=== PATIENT | male | born 1955 | race African-American/Black ===

== ENCOUNTER 2017-07-25 15:00 | Outpatient (RCR) | payer MEDICARE, OTHER, SELFPAY ==
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
== END 2017-07-25 15:30 | disposition home or self-care (01) ==
LOC: PT 15:00
PROVIDERS: Family Provider Family Medicine; PCP Family Medicine; Visit Provider Family Medicine
DX: M54.2 Cervicalgia (principal); M25.569 Pain in unspecified knee
CPT/HCPCS: 97014; 97035; 97110; 97162; 97164; 97530; G0283

== ENCOUNTER 2017-08-24 10:22 | Emergency (ER) | payer MEDICARE, SELFPAY ==
[2017-08-24 10:23] VITALS: BP 156/101; PULSE 88; RESP 18; TEMP 37.4; O2SAT 98; BMI 74.9
--- NOTE | 2017-08-24 11:06 | ED.DCSUM_ITS ---
- ER Visit Summary Date of Service: 08/24/17 Chief Complaint: Back pain History of Present Illness: The patient is a [address] Ahn. Reports that he has a history of chronic back pain and spinal stenosis. He is scheduled to see a spine surgeon Dr. Frank in September. Reports he had an MRI last year. She reports this morning he was bending over and cough. He had the acute worsening of pain left low back. Is a sharp, aching pain is 10 out of 10 severity. Worsened by movement and partially relieved by a back brace. States radiates down the back of his left leg to the level of his knee. He denies any numbness or weakness. No problems with his bowels or his bladder. No groin numbness. No fever, chills, abdominal pain, or other complaints. Physical Examination: Vitals: Stable. Afebrile. General: A&O x 3. NAD. Cardiovascular exam: Regular rate and rhythm, no murmur, rub or gallop. Respiratory exam: Clear to auscultation bilaterally. No wheezes or stridor. Abdominal exam: Soft, nontender, nondistended, normal bowel sounds. No peritoneal signs. Back: Diffuse moderate tenderness to palpation over the lumbar spine and the paraspinous musculature in the lumbar region. No point tenderness. Negative straight leg bilaterally. 5/5 DF, PF, EHL bilaterally. Normal sensation to light touch throughout. Extremity: No clubbing, cyanosis, or edema. Emergency Department Course and Treatment: An [facility] report was obtained which shows he has had 11 prescription for opiates in the past year. He does not have an active prescription. He is given a dose of Dilaudid IM, Flexeril p.o., naproxen p.o. Treatment Plan: Patient will be discharged with [place], naproxen, and Flexeril. Instructed to follow-up Dr. Ahn in 3-5 days if not improving. Return to the emergency department for any worsening symptoms. Disposition: To home in improved and stable condition. Impression: 1. Acute on chronic back pain. This note was generated with [employer] dictation software. It may contain incorrect words, spelling, and punctuation that were not noted in review of the chart prior to signing ED Disposition - Plan for ED Patient: Disposition: Home or Assisted Living Chief Complaint: Back Instructions: ED Neck Back Pain General Prescriptions: Naproxen [Naprosyn] 500 mg PO BID PRN #20 tablet Cyclobenzaprine [Flexeril] 10 mg PO TID PRN #20 tablet PRN Reason: Muscle Spasm Referrals: Deo Ahn MD [Primary Care Provider] - 3-5 Days if not improving
[2017-08-24] MEDS: Naproxen 500 MG Tablet PO (11:25)
[2017-08-24] MEDS: HYDROmorphone 1 MG/ML Syringe IM (11:25)
[2017-08-24 12:25] VITALS: PULSE 92; RESP 14; O2SAT 98
== END 2017-08-24 12:43 | disposition home or self-care (01) ==
PROVIDERS: Emergency Provider Emergency Medicine; Family Provider Family Medicine; PCP Family Medicine
DX: M54.9 Dorsalgia, unspecified (principal); G89.29 Other chronic pain; I10 Essential (primary) hypertension; K74.60 Unspecified cirrhosis of liver; Z72.0 Tobacco use; Z79.899 Other long term (current) drug therapy
CPT/HCPCS: 96372; 99282

== ENCOUNTER → 2017-10-23 12:41 | Outpatient (CLI) | payer MEDICARE, SELFPAY ==
--- NOTE | 2017-10-23 12:44 | RAD_ITS ---
STUDY: X-RAY - LUMBOSACRAL SPINE REASON FOR EXAM: Male, 62 years old. Low back pain TECHNIQUE: 7 view(s) of the lumbosacral spine were obtained. COMPARISON: October 23, 2016 lumbar spine x-ray FINDINGS: Normal lumbar lordosis. There is no apparent change in the alignment with flexion and extension. There is no substantial scoliosis. There is normal alignment of the vertebrae. There is multilevel endplate spondylosis of the lumbar vertebrae. There is multi-level degenerative disc disease with multi-level disc space narrowing. This is most significant at the level of L5-S1 where there is disc space narrowing spondylosis narrowed appearance of the neural foramen and shortening of the pedicle. There is facet arthropathy left greater than right L4-L5 L5-S1. Normal bilateral sacral ala, sacroiliac joints, and visualized sacrum. Normal visualized soft tissue structures. RAD/L/S Spine Comp/w Bending Views IMPRESSION: Degenerative changes of the spine, as detailed above. No visualized loss of alignment with flexion and extension views provided. Electronically Signed: Naye Monsivais MD at 17:26 EDT Tel , Service support ,
== END ==
PROVIDERS: Visit Provider Orthopaedic Surgery
DX: M54.5 Low back pain (principal)
CPT/HCPCS: 72114

== ENCOUNTER → 2017-11-08 12:35 | Outpatient (CLI) | payer MEDICARE, SELFPAY ==
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
== END ==
PROVIDERS: Family Provider Family Medicine; PCP Family Medicine; Visit Provider Orthopaedic Surgery
DX: S83.241A Other tear of medial meniscus, current injury, right knee, initial encounter (principal); X58.XXXA Exposure to other specified factors, initial encounter; Y93.9 Activity, unspecified; Y92.9 Unspecified place or not applicable; Y99.9 Unspecified external cause status
CPT/HCPCS: 73721

== ENCOUNTER 2017-11-08 14:09 | Emergency (ER) | payer MEDICARE, SELFPAY ==
[2017-11-08 14:10] VITALS: BP 148/81; PULSE 100; RESP 17; TEMP 37.2; O2SAT 99; BMI 35.1
--- NOTE | 2017-11-08 14:30 | ED.DCSUM_ITS ---
- ER Visit Summary Date of Service: 11/08/17 Chief Complaint: Left knee pain History of Present Illness: The patient is a 62 M who complains of left knee pain. Started today. He was getting an MRI of his right knee when his left knee started to hurt. Patient has been seen here many times over the past year for knee pain. He states that he usually takes nothing for his pain at home. He also describes tingling in the leg. He has had x-rays of both of his knees with the past 6 months. Physical Examination: Vital signs reviewed. Left knee exam reveals tenderness palpation diffusely. There is no swelling. He has painful range of motion. Test Results: None indicated Emergency Department Course and Treatment: I will give the patient 1 oxycodone here. He will go home with naproxen. I do not feel he requires any imaging as he has had multiple x-rays of the left knee in the past 6 months. There is no new injury. I do not feel that narcotics will be necessary for this as well. Treatment Plan: [] Disposition: Discharge Impression: Left knee pain This note was generated with [employer] dictation software. It may contain incorrect words, spelling, and punctuation that were not noted in review of the chart prior to signing ED Disposition - Plan for ED Patient: Chief Complaint: Lower Extremity Injury Referrals: Deo Ahn MD [Primary Care Provider] -
--- NOTE | 2017-11-08 14:30 | ED.DEP ---
ED Disposition - Plan for ED Patient: Disposition: Home or Assisted Living Chief Complaint: Lower Extremity Injury Instructions: ED Knee Pain [facility] Prescriptions: Naproxen [Naprosyn] 500 mg PO BID PRN #20 tab Referrals: Deo Ahn MD [Primary Care Provider] -
[2017-11-08] MEDS: oxyCODONE 5 MG Tablet PO (14:55)
[2017-11-08 14:58] VITALS: PULSE 98; RESP 16; O2SAT 100
== END 2017-11-08 15:06 | disposition home or self-care (01) ==
LOC: ED 14:48
PROVIDERS: Emergency Provider Emergency Medicine; Family Provider Family Medicine; PCP Family Medicine
DX: M25.562 Pain in left knee (principal); R20.2 Paresthesia of skin; S83.241A Other tear of medial meniscus, current injury, right knee, initial encounter; X58.XXXA Exposure to other specified factors, initial encounter; Y93.9 Activity, unspecified; Y92.9 Unspecified place or not applicable; Y99.9 Unspecified external cause status; I10 Essential (primary) hypertension; K74.60 Unspecified cirrhosis of liver; Z72.0 Tobacco use; Z79.899 Other long term (current) drug therapy
CPT/HCPCS: 73721; 99283

== ENCOUNTER 2017-12-11 07:14 | Day surgery (SDC) | payer MEDICARE, MEDICAID, SELFPAY ==
[2017-12-11] VITALS (9 sets, daily range): BP systolic 113–145; BP diastolic 69–94; PULSE 71–97; RESP 16–18; TEMP 36.3–36.4; O2SAT 94–100; BMI 34.0
--- NOTE | 2017-12-11 07:04 | DCINST_ITS ---
Discharge Activity: Return to Normal Activity, May not drive while taking narcotic pain medications., May Shower, Use Crutches May shower in (days): 2 May resume sexual activity in: No Restrictions Ice area for (Minutes): 20 Weight Bearing Status: Weight bearing as tolerated Keep extremity elevated above heart level: Right Leg Additional Activity Instructions:: May flex and extend knee ad danny. Call your doctor if your incision/area has: Continuous Slow Oozing, Sudden Increased Bleeding, Increased Pain/ Swelling, Increased Redness, Foul Smelling Discharge, Swelling at the incision site Call your doctor if you observe: Fever of 101 or Higher, Coldness, Increased Pain, Numbness or Tingling, Change in Color, Inability to urinate, Inability to have a bowel movement, Using more than one pad per hour, Shortness of breath, Dizziness, Fainting spells, Swelling in the ankles, Chest pain, Prolonged hiccoughing, Increased palpitations (irregular heartbeat), Calf discomfort, Uncontrolled pain Suture Line Care: Avoid Pulling/Pushing, Avoid Pinching/Bending Change Dressing in (Days):: 2 Remove Dressing in (days):: 2 Cleanse incision/area with: Soap & Water Additional Dressing/Incision Instructions:: Move dressing to shower. Do not submerge wound. May allow water to run over wounds. Replace Oswaldo wrap after shower to aid with decreasing swelling. Allergies/Adverse Reactions: Allergies codeine Allergy (Verified 12/10/17 09:03) Other propoxyphene HCl [From Darvon] Allergy (Verified 12/10/17 09:03) Other propoxyphene napsylate [From Darvocet-N 100] Allergy (Verified 12/10/17 09:03) Other Medications to take at Discharge Meloxicam 15 mg PO DAILY 11/29/13 Albuterol IH (ProAir) [Proair Hfa] 2 puff INHALATION Q6H PRN PRN 12/02/13 Metoprolol(XL)Succ [Toprol Xl (Beta Julia)] 50 mg PO DAILY 12/02/13 Pantoprazole Sodium [Protonix] 40 mg PO DAILY 12/02/13 Lisinopril [Zestril] 20 mg PO DAILY 12/15/15 Methimazole [Tapazole] 5 mg PO DAILY 05/18/16 Docusate Sodium [Colace] 100 mg PO BID PRN PRN #10 cap 12/11/17 Hydrocodone Bitart/Apap 5-325 [W[place]ers 5/325] 1 - 2 tablet PO Q6H PRN PRN #60 tablet 12/11/17 Meloxicam [Mobic] 15 mg PO DAILY #30 tab 12/11/17 proMETHazine tablet [Phenergan] 25 mg PO Q4H PRN PRN #10 tab 12/11/17 The following prescriptions were given: proMETHazine tablet [Phenergan] 25 mg PO Q4H PRN PRN #10 tab PRN Reason: Nausea Hydrocodone Bitart/Apap 5-325 [Warners 5/325] 1 - 2 tablet PO Q6H PRN PRN #60 tablet PRN Reason: Pain Docusate Sodium [Colace] 100 mg PO BID PRN PRN #10 cap PRN Reason: Constipation Meloxicam [Mobic] 15 mg PO DAILY #30 tab Primary Care Physician: Deo Ahn MD [Primary Care Provider] - Please Follow Up With: Ramin Rick DO When: [facility] for appointment for 2 weeks. Proposed Discharge Date: 12/11/17
--- NOTE | 2017-12-11 08:52 | OP.PN_ITS ---
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 Surgery/Procedure Performed:: Right knee arthroscopy, medial meniscus debridement, subtotal synovectomy Description of Surgical Findings:: See dictation Estimated Blood Loss: 10 Specimen's removed: None Type of Anesthesia:: General ASA Class: ASA1 Normal Healthy Patient - Admit VTE Documentation VTE Present on Admission: No VTE Mechan Device Prophylaxis: SCD's, Knee High MARYLIN Hose VTE Pharm Prophylaxis ordered?: No Reason prophylaxis not ordered:: Treatment Not Indicated
[2017-12-11] MEDS: Cefazolin 2 GM in 0.9% Normal Saline 100 ML IV (09:04)
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
[2017-12-11] MEDS: Ketorolac 15 MG/ML Vial IV (10:23)
[2017-12-11] MEDS: oxyCODONE 5 MG Tablet 10 MG PO (11:48)
== END 2017-12-11 12:10 | disposition home or self-care (01) ==
LOC: SDC 07:16 → AC 07:17
PROVIDERS: Family Provider Family Medicine; PCP Family Medicine; Visit Provider Orthopaedic Surgery
PROC: (CPT 29870; principal; 2017-12-11 08:30)
DX: S83.241A Other tear of medial meniscus, current injury, right knee, initial encounter (principal); M23.8X1 Other internal derangements of right knee; M94.261 Chondromalacia, right knee; M25.561 Pain in right knee; G89.29 Other chronic pain; F17.200 Nicotine dependence, unspecified, uncomplicated; I10 Essential (primary) hypertension; J44.9 Chronic obstructive pulmonary disease, unspecified; G47.30 Sleep apnea, unspecified; K21.9 Gastro-esophageal reflux disease without esophagitis; E05.90 Thyrotoxicosis, unspecified without thyrotoxic crisis or storm; Z86.19 Personal history of other infectious and parasitic diseases; Z79.51 Long term (current) use of inhaled steroids; Z79.899 Other long term (current) drug therapy; X58.XXXA Exposure to other specified factors, initial encounter; Y93.9 Activity, unspecified; Y92.9 Unspecified place or not applicable; Y99.9 Unspecified external cause status
CPT/HCPCS: 01400; 29881; J7120

== ENCOUNTER → 2018-01-08 12:23 | Outpatient (CLI) | payer MEDICARE, SELFPAY ==
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
== END ==
PROVIDERS: Family Provider Family Medicine; PCP Family Medicine; Visit Provider Orthopaedic Surgery
DX: S83.207A Unspecified tear of unspecified meniscus, current injury, left knee, initial encounter (principal)
CPT/HCPCS: 73721

== ENCOUNTER 2018-01-22 05:26 | Day surgery (SDC) | payer OTHER, MEDICARE, SELFPAY ==
[2018-01-22] VITALS (7 sets, daily range): BP systolic 126–145; BP diastolic 88–98; PULSE 75–88; RESP 16–18; TEMP 36.2–36.9; O2SAT 97–99; BMI 34.8
--- NOTE | 2018-01-22 06:55 | PCM.DC.ORTHO ---
Discharge Activity: Return to Normal Activity, May not drive while taking narcotic pain medications., May Shower, Use Crutches May shower in (days): 2 May resume sexual activity in: No Restrictions Ice area for (Minutes): 20 Weight Bearing Status: Weight bearing as tolerated Keep extremity elevated above heart level: Left Leg Additional Activity Instructions:: May move knee ad danny. Crutches for comfort. Call your doctor if your incision/area has: Continuous Slow Oozing, Sudden Increased Bleeding, Increased Pain/ Swelling, Increased Redness, Foul Smelling Discharge Call your doctor if you observe: Fever of 101 or Higher, Coldness, Increased Pain, Numbness or Tingling, Change in Color, Calf discomfort Suture Line Care: Avoid Pulling/Pushing, Avoid Pinching/Bending Change Dressing in (Days):: 2 Remove Dressing in (days):: 2 Cleanse incision/area with: Soap & Water Additional Dressing/Incision Instructions:: Remove dressing prior to shower on . Wash hands prior to touching wounds. May shower but do not submerge wound. Replace Oswaldo wrap upon completion of initial shower to decrease swelling. Allergies/Adverse Reactions: Allergies codeine Allergy (Verified 12/19/17 10:31) Other propoxyphene HCl [From Darvon] Allergy (Verified 12/19/17 10:31) Other propoxyphene napsylate [From Darvocet-N 100] Allergy (Verified 12/19/17 10:31) Other Medications to take at Discharge Albuterol IH (ProAir) [Proair Hfa] 2 puff INHALATION Q6H PRN PRN 12/02/13 Metoprolol(XL)Succ [Toprol Xl (Beta Julia)] 50 mg PO DAILY 12/02/13 Pantoprazole Sodium [Protonix] 40 mg PO DAILY 12/02/13 Lisinopril [Zestril] 20 mg PO DAILY 12/15/15 Methimazole [Tapazole] 5 mg PO DAILY 12/15/15 Docusate Sodium [Colace] 100 mg PO BID PRN PRN #10 cap 12/11/17 Hydrocodone Bitart/Apap 5-325 [[place] 5/325] 1 - 2 tablet PO Q6H PRN PRN #60 tablet 12/11/17 Meloxicam [Mobic] 15 mg PO DAILY #30 tab 12/11/17 proMETHazine tablet [Phenergan] 25 mg PO Q4H PRN PRN #10 tab 12/11/17 Primary Care Physician: Deo Ahn MD [Primary Care Provider] - Please Follow Up With: Ramin Rick DO When: call [facility] for appt for 2 weeks Proposed Discharge Date: 01/22/18
[2018-01-22] MEDS: Cefazolin 2 GM in 0.9% Normal Saline 100 ML IV (07:09)
[2018-01-22] MEDS: Bupivacaine Mpf 0.5% 30 ML VIAL (08:00)
--- NOTE | 2018-01-22 08:12 | PCM.IMDPSTOP ---
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
[2018-01-22] MEDS: Ketorolac 15 MG/ML Vial IV (08:18)
--- NOTE | 2018-01-22 08:20 | OP.PCM_ITS ---
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 Patient had plain from radiographs that showed a valgus knee with some narrowing and some squaring to the compartment. Patient had an MRI that showed complex tears to his medial and lateral meniscus with significant chondromalacia and subchondral edema at the lateral tibial plateau and squaring of the lateral femoral condyle. Patellofemoral joint was otherwise preserved. Having failed conservative measures of multiple injections and physical therapy brace wear patient elected for operative intervention. Patient was informed that based on MRI that he may be a candidate for either a lateral unicompartmental arthroplasty versus total knee arthroplasty based on the degree of potential arthrosis identified by MRI. Patient was met in the holding area where the left lower extremity was marked and identified by the orthopedic surgeon. Patient was taken to the operating room in satisfactory condition with somewhat to place to identify patient operative procedure and limb. Patient received 2 g of Ancef. He had a well-placed tourniquet to the left left proximal thigh. Patient was then prepped and draped in usual fashion. Left lower extremity was elevated Esmarch used for exsanguination and tourniquet was increased to 250 mmHg for roughly 30 minutes. Anterolateral portal was established we entered into the suprapatellar pouch. We had no return of an effusion. Superior lateral outflow portal was created. Diagnostic scope should the patient have really grade I-II chondromalacia globally around the patella but the trochlea was otherwise preserved. Patient had some degree of hypertrophic fat pad that was not inflamed. He had no loose bodies in the posterior lateral corner. Patient's patella tracked accordingly. Moved in the medial compartment patient had a significant anterior fat pad. Anterior medial portal was established and we performed an anterior release and synovectomy for better visualization. Reevaluation the trochlea again showed limited chondromalacia. Patient's medial compartment was otherwise showed some mild softening and fissure formation but no loose chondral fragments. He did have a parrot-beak tear to the medial meniscus which was gently debrided using mechanical shaver. And some debridement of complex changes to the posterior horn. Patient lost roughly 25% of the meniscus at most. It was otherwise stable upon probing. No obvious horizontal cleavage pattern was identified which was more consistent with his MRI findings. Patient did show rimming early osteophytic formations across the edge of the medial femoral condyle. He showed early not stenosis but was not causing roof impingement at this time. Patient also showed some osteophytic formation across the lateral femoral condyle as well. Lateral compartment showed the patient have grade IV chondromalacia roughly over 75% of the weightbearing surface with some mild loose chondral fragments were debrided mechanically with a shaver. The patient showed a very complex erratic pattern to his meniscus. Posterior horn was otherwise stable upon probing however she moved towards the popliteus the patient's meniscus thinned out significantly consistent with his MRI findings. And then passed popliteal popliteal hiatus anteriorly he had horizontal cleavage pattern and small radial components anteriorly. Using a combination of meniscal biters both front and back directions and a mechanical shaver the meniscus was debrided to a stable rim. I maintained the overall continuity of the as it was not unstable but it clearly was not a healthy-appearing meniscus. The patient's dermal condyle showed significant squaring formation is identified by plain films consistent with grade III chondromalacia. No obvious loose fragments were identified. Upon completion of the meniscectomy and the synovectomy scope was retracted. Portal sites were closed with 3-0 nylon. He was injected with 30 cc of 0.25% Marcaine without epinephrine. He was addressed in usual fashion with Xeroform 4 x 4's Kerlix roll ABD Oswaldo wrap and tourniquet was let down. I was scrubbed and available all time during our procedure. He had no drains or complications. And no implants. Patient will follow the meniscus protocol. Patient remains symptomatic we will refer him out for possible compartment arthroplasty versus total knee. With the patient' s medial compartment osteophytic changes is probably a better candidate for total knee arthroplasty for Long-term success. electronic equipment repairmen: none Type of Anesthesia:: General Specimen's removed: None Estimated Blood Loss (mL): 5 Grafts/Implants Used: None - Complications None - Admit VTE Documentation VTE Present on Admission: No VTE Mechan Device Prophylaxis: SCD's, Knee High MARYLIN Hose VTE Pharm Prophylaxis ordered?: No Reason prophylaxis not ordered:: Treatment Not Indicated
[2018-01-22] MEDS: HYDROcodone Bitartrate/Apap 5/325 Tablet PO (09:15)
== END 2018-01-22 09:49 | disposition home or self-care (01) ==
LOC: SDC 05:27 → AC 05:28
PROVIDERS: Family Provider Family Medicine; PCP Family Medicine; Visit Provider Orthopaedic Surgery
PROC: (CPT 29870; principal; 2018-01-22 06:55)
DX: S83.272A Complex tear of lateral meniscus, current injury, left knee, initial encounter (principal); S83.242A Other tear of medial meniscus, current injury, left knee, initial encounter; X58.XXXA Exposure to other specified factors, initial encounter; Y93.9 Activity, unspecified; Y92.9 Unspecified place or not applicable; Y99.9 Unspecified external cause status; J44.9 Chronic obstructive pulmonary disease, unspecified; I10 Essential (primary) hypertension; E78.00 Pure hypercholesterolemia, unspecified; K21.9 Gastro-esophageal reflux disease without esophagitis; G47.30 Sleep apnea, unspecified; M54.9 Dorsalgia, unspecified; G89.29 Other chronic pain; F17.200 Nicotine dependence, unspecified, uncomplicated; Z79.899 Other long term (current) drug therapy
CPT/HCPCS: 29880; J7120; J2405

== ENCOUNTER 2018-01-29 13:28 | Emergency (ER) | payer MEDICARE, SELFPAY ==
[2018-01-29 13:29] VITALS: BP 138/78; PULSE 89; RESP 16; TEMP 37; O2SAT 98; BMI 34.0
--- NOTE | 2018-01-29 13:46 | VDLE_ITS ---
Reason For Study: pain RIGHT LEFT CFV is compressible, spontaneous, phasic, GSV is normal. competent and demonstrates normal CFV is compressible, spontaneous, phasic, augmentation. competent, and demonstrates normal Procedure augmentation. Exam performed portable in ED. FV is compressible, spontaneous, phasic, The exam was diagnostic. competent and demonstrates normal A preliminary report was called and/or faxed augmentation. to Dr. Griffin. POP V is compressible, spontaneous, phasic, competent and demonstrates normal augmentation. T/P Trunk is compressible. PTV is compressible. LT PerV is compressible. Interpretation Summary There is no evidence of left lower extremity deep vein thrombosis. Left greater saphenous vein appears patent and compressible segmentally. Normal flow patterns right common femoral vein. Ordering Physician: Ramin Griffin Performed By: Ra Jackson RVT
[2018-01-29] MEDS: morphine 8 MG/ML Syringe SC (13:50)
[2018-01-29] MEDS: Ondansetron ODT 4 MG Tablet PO (13:54)
--- NOTE | 2018-01-29 14:35 | RAD_ITS ---
STUDY: X-RAY - LEFT KNEE REASON FOR EXAM: Male, 62 years old. Pain. Recent surgical intervention of the knee joint. TECHNIQUE: AP and lateral view(s) of the knee. COMPARISON: Comparison is made with prior study dated August 22, 2017. FINDINGS: Normal visualized distal femur. Normal visualized proximal tibia and fibula. Normal proximal tibiofibular articulation. Normal medial femorotibial compartment. There is moderate degenerative arthrosis of the lateral femorotibial compartment with moderate joint space narrowing. There is mild degenerative arthrosis of the patellofemoral articulation. Small joint effusion. RAD/Knee 1 or 2 Views IMPRESSION: Degenerative arthrosis. Small joint effusion. Electronically Signed: Joe Cordero MD at 14:55 EDT Tel [phone], Service support ,
--- NOTE | 2018-01-29 15:19 | ED.VISSUMM ---
- ER Visit Summary Date of Service: 01/29/18 Chief Complaint: Left leg pain History of Present Illness: The patient is a 62 M presenting for evaluation secondary left leg pain. Patient reports that he had a arthroscopic knee surgery performed a week ago. He reports that he has had gradually increasing pain in his left knee and left leg. Patient states that he has not been regularly taking his pain medication. Denies any presence of fevers chills or night sweats. He denies any warmth of the joint. Patient denies any chest pain or shortness of breath. Patient called the orthopedics office they recommended that he come in for evaluation and a duplex ultrasound. Review of systems otherwise negative. Physical Examination: Vital signs within normal limits patient is afebrile 98.6. Well-nourished male visibly in pain otherwise not in physiologic distress. Heart regular rate and rhythm lungs clear. Abdomen soft nontender. Lower extremity exam shows diffuse tenderness to palpation of the thigh knee and calf without any localization. Compartments are soft no evidence of palpable cord. Skin is normal-appearing, nonerythematous incisions are cleaned dry and intact. There is a joint effusion of the knee, but there is no evidence of warmth when compared to the contralateral knee. 2+ DP and PT pulses that are bilaterally symmetric. Remainder of the physical is otherwise unremarkable. Test Results: Duplex ultrasound found to be negative for DVT, 2 view of the knee shows an effusion and degenerative joint disease Emergency Department Course and Treatment: Patient presented for evaluation secondary to leg pain. He was treated with morphine in the emergency department. Her radiographs as noted above were found to be negative. At this time I do not see any evidence of vascular compromise, any evidence of infection, and I believe that the patient's pain likely is secondary to postoperative pain. I did discuss this with the covering physician Dr. Mclaughlin who will pass the message along to the patient's surgeon Dr. Rick. Patient's was given an additional dose of subcutaneous Dilaudid in the emergency department for further pain control, and the patient was discharged in improved condition Disposition: Discharge Impression: 1. Postoperative left leg pain This note was generated with [employer] ([place] dictation software. It may contain incorrect words, spelling, and punctuation that were not noted in review of the chart prior to signing ED Disposition - Plan for ED Patient: Disposition: Home or Assisted Living Chief Complaint: Lower Extremity Injury Diagnosis: Postoperative pain Instructions: ED Post Op Pain Referrals: Ramin Rick DO [STAFF PHYSICIAN] - Keep Akila appointment
--- NOTE | 2018-01-29 15:23 | ED.DCSUM_ITS ---
- ER Visit Summary Date of Service: 01/29/18 Chief Complaint: Left leg pain History of Present Illness: The patient is a 62 M presenting for evaluation secondary left leg pain. Patient reports that he had a arthroscopic knee surgery performed a week ago. He reports that he has had gradually increasing pain in his left knee and left leg. Patient states that he has not been regularly taking his pain medication. Denies any presence of fevers chills or night sweats. He denies any warmth of the joint. Patient denies any chest pain or shortness of breath. Patient called the orthopedics office they recommended that he come in for evaluation and a duplex ultrasound. Review of systems otherwise negative. Physical Examination: Vital signs within normal limits patient is afebrile 98.6. Well-nourished male visibly in pain otherwise not in physiologic distress. Heart regular rate and rhythm lungs clear. Abdomen soft nontender. Lower extremity exam shows diffuse tenderness to palpation of the thigh knee and calf without any localization. Compartments are soft no evidence of palpable cord. Skin is normal-appearing, nonerythematous incisions are cleaned dry and intact. There is a joint effusion of the knee, but there is no evidence of warmth when compared to the contralateral knee. 2+ DP and PT pulses that are bilaterally symmetric. Remainder of the physical is otherwise unremarkable. Test Results: Duplex ultrasound found to be negative for DVT, 2 view of the knee shows an effusion and degenerative joint disease Emergency Department Course and Treatment: Patient presented for evaluation secondary to leg pain. He was treated with morphine in the emergency department. Her radiographs as noted above were found to be negative. At this time I do not see any evidence of vascular compromise, any evidence of infection , and I believe that the patient's pain likely is secondary to postoperative pain. I did discuss this with the covering physician Dr. Mclaughlin who will pass the message along to the patient's surgeon Dr. Rick. Patient's was given an additional dose of subcutaneous Dilaudid in the emergency department for further pain control, and the patient was discharged in improved condition Disposition: Discharge Impression: 1. Postoperative left leg pain This note was generated with [employer] dictation software. It may contain incorrect words, spelling, and punctuation that were not noted in review of the chart prior to signing ED Disposition - Plan for ED Patient: Disposition: Home or Assisted Living Chief Complaint: Lower Extremity Injury Diagnosis: Postoperative pain Instructions: ED Post Op Pain Referrals: Ramin Rick DO [STAFF PHYSICIAN] - Keep Akila appointment
[2018-01-29] MEDS: HYDROmorphone 1 MG/ML Syringe SC (15:29)
[2018-01-29 15:59] VITALS: BP 127/81; PULSE 97; RESP 16; O2SAT 98
== END 2018-01-29 16:16 | disposition home or self-care (01) ==
PROVIDERS: Emergency Provider Emergency Medicine; Family Provider Family Medicine; PCP Family Medicine
DX: M79.605 Pain in left leg (principal); G89.18 Other acute postprocedural pain; M17.12 Unilateral primary osteoarthritis, left knee; I10 Essential (primary) hypertension; K21.9 Gastro-esophageal reflux disease without esophagitis; Z79.899 Other long term (current) drug therapy
CPT/HCPCS: 73560; 93971; 96372; 99282

== ENCOUNTER 2018-02-20 12:30 | Outpatient (RCR) | payer MEDICARE, SELFPAY ==
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
--- NOTE | 2018-05-09 11:39 | HP.PTDCNRP_ITS ---
HP - Discharge Summary (1) - Patient Information ZANE YEPEZ was seen in my office for initial evaluation on 02/12/18. The following Plan of Care was established for this patient: Initial Frequency: 2x /Week Initial Duration: 4-6 Weeks - Anticipated Interventions Patient/Client Instruction: Educate patient on: Condition, Plan of Care, Risk Factors, Benefits of Fitness Program For the Purpose of:: To foster healthy habits, To improve decision making, To facilitate caregiver knowledge, To improve self management, To prevent re- injury, To improve ability to perform tasks related to life management, To improve tolerance to ADL's Therapeutic Exercise to Include: Strength training, Power training, Endurance training, Balance training, Coordination, Agility training, Body mechanics, Flexibilty training, Gait and locomotor training, In an aquatic setting, Passive ROM, Active ROM For the Purpose of:: To decrease pain, To increase ROM, To improve nutrient delivery to tissue, To increase oxygenation perfusion, To improve ability of physical actions for home/community/work/leisure, To improve gait and locomotor functions, To improve health of tissue, To decrease soft tissue restriction, To increase flexibility/ROM, To improve endurance, To improve balance Manual Therapy Techniques to Include: Mobilization, Passive ROM For the Purpose of:: To decrease pain, To decrease swelling/inflammation, To increase ROM IF ES: Yes Cryotherapy (ice pack, ice massage): Yes For the Purpose of:: To decrease pain, To decrease swelling/inflammation, To increase ROM This patient was last seen in our office 02/20/18. Pertinent comments regarding their Physical therapy will appear below: Pt. was seen for his L knee pain after menisectomy. Pt. was seen for 3 visits with reports of good improvement. He had full ROM after our last visit. Pt. desired to trial PT on his own at that point in time. Pt. has not been seen ~3 months and will be DC from PT at this point in time. At this point I will be discontinuing this patient from physical therapy. I would be happy to see this patient again in the future if found appropriate by the physician. Thank you! Floyd Curry
== END 2018-02-20 19:00 | disposition home or self-care (01) ==
LOC: PT 12:30
PROVIDERS: Family Provider Family Medicine; PCP Family Medicine; Visit Provider Orthopaedic Surgery
DX: M51.37 Other intervertebral disc degeneration, lumbosacral region (principal); M54.17 Radiculopathy, lumbosacral region; Z98.890 Other specified postprocedural states
CPT/HCPCS: 97014; 97110; 97113; 97162; G0283

== ENCOUNTER 2018-02-28 15:42 | Emergency (ER) | payer MEDICARE, SELFPAY ==
[2018-02-28 15:44] VITALS: BP 132/86; PULSE 91; RESP 18; TEMP 36.6; O2SAT 98; BMI 34.0
--- NOTE | 2018-02-28 16:36 | ED.VISSUMM ---
- ER Visit Summary Date of Service: 02/28/18 Chief Complaint: Rash History of Present Illness: The patient is a 62 M presents to the emergency department with rash on his left back. Patient had the symptoms for the past 2 days. He is concerned that he may have shingles. Patient denies any injury. He denies any chest pain shortness of breath. He denies any fevers or chills. He has never had anything like this before. Physical Examination: Exam is relatively unremarkable. Patient does have vesicular rash along the left back to the left lateral chest. There is no cellulitis. There is no active drainage. Rest of exam unremarkable. Test Results: [] Emergency Department Course and Treatment: The patient's examination is consistent with shingles. He is afebrile. He is well-appearing. I do feel that he can safely be managed as an outpatient. He is not a diabetic. He will be given analgesics, prednisone, and antivirals. The patient will be discharged home, counseled on concerning symptoms and reasons to return. Treatment Plan: [] Disposition: Discharge Impression: 1. Shingles left chest This note was generated with [employer] dictation software. It may contain incorrect words, spelling, and punctuation that were not noted in review of the chart prior to signing ED Disposition - Plan for ED Patient: Chief Complaint: Rash Instructions: ED Shingles Prescriptions: Oxycodone [Oxyir] 5 mg PO Q6H PRN PRN 3 Days #10 tab PRN Reason: Pain Prednisone 10 mg PO UD #33 tab Valacyclovir HCl [Valacyclovir] 1,000 mg PO TID #21 tab Referrals: Deo Ahn MD [Primary Care Provider] -
[2018-02-28] MEDS: oxyCODONE 5 MG Tablet PO (16:41)
[2018-02-28] MEDS: predniSONE 20 MG Tablet 40 MG PO (16:41)
== END 2018-02-28 17:02 | disposition home or self-care (01) ==
LOC: ED 16:38
PROVIDERS: Emergency Provider Emergency Medicine; Family Provider Family Medicine; PCP Family Medicine
DX: B02.9 Zoster without complications (principal); I10 Essential (primary) hypertension; J45.909 Unspecified asthma, uncomplicated; K21.9 Gastro-esophageal reflux disease without esophagitis; Z79.899 Other long term (current) drug therapy
CPT/HCPCS: 99283

== ENCOUNTER 2018-03-18 07:32 | Emergency (ER) | payer MEDICARE, SELFPAY ==
[2018-03-18 07:33] VITALS: BP 152/78; PULSE 91; RESP 17; TEMP 37.2; O2SAT 98; BMI 35.4
--- NOTE | 2018-03-18 07:42 | ED.VISSUMM ---
- ER Visit Summary Date of Service: 03/18/18 Chief Complaint: Back pain History of Present Illness: The patient is a 62 M who is had 2 days of back pain. He denies any specific injury. It sharp in the right lumbar and thoracic area. Movement makes it worse. Nothing makes it better. Denies numbness or tingling in his legs. Denies any radiation to the legs. Denies any urinary retention or incontinence. No dysuria or hematuria. He does have a history of back pain in the past. He did not take anything for it at home. He denies any fevers. Physical Examination: Vital signs are reviewed. HEENT exam unremarkable. Heart is regular rate and rhythm. Lungs clear to auscultation. Abdomen soft nontender. Back exam reveals right paraspinal thoracic and upper lumbar tenderness. No midline tenderness. His neurologic exam including reflexes is normal. Test Results: Urinalysis negative Emergency Department Course and Treatment: Patient was given subcutaneous morphine and had improvement of his pain. The patient initially told me he took nothing for this pain, however he told nursing that he took medical marijuana and oxycodone. Patient sees Dr. Shahid for this pain. He is scheduled for an injection but this is for his lower back. At this point I do not feel any imaging is necessary as he has no bony tenderness. Patient will be treated with naproxen and Zanaflex at home. He will need to follow-up with his doctors Treatment Plan: [] Disposition: Discharge Impression: Thoracic back pain This note was generated with [employer] dictation software. It may contain incorrect words, spelling, and punctuation that were not noted in review of the chart prior to signing ED Disposition - Plan for ED Patient: Chief Complaint: Back Referrals: Deo Ahn MD [Primary Care Provider] -
[2018-03-18] MEDS: morphine 8 MG/ML Syringe SC (08:05)
[2018-03-18 08:06] LABS: Color, Urine Yellow (Yellow); Glucose, Dipstick Normal (Normal); Ketone-Dipstick Negative (Negative); Leukocyte Esterase-Dipstick Negative /ul (Negative); Nitrite-Dipstick Negative (Negative); Occult Blood-Urine Negative /ul (Negative); Protein-Dipstick 30 mg/dl (Negative); Specific Gravity, Urine 1.015 (1.002-1.030); Urine Bilirubin Dipstick Negative (Negative); Urine Clarity Clear (Clear); Urine Urobilinogen Normal (Normal)
--- NOTE | 2018-03-18 08:15 | ED.DEP ---
ED Disposition - Plan for ED Patient: Disposition: Home or Assisted Living Chief Complaint: Back Instructions: ED Neck Back Pain General Prescriptions: Naproxen [Naprosyn] 500 mg PO BID PRN #20 tab Tizanidine HCl [Zanaflex] 2 mg PO TID #20 cap Referrals: Deo Ahn MD [Primary Care Provider] -
[2018-03-18 08:20] LABS: Bacteria RARE /hpf (None Seen); Mucous, Urine RARE /hpf (<or=2+); Red Blood Cells-Urine 0-5 SEEN /hpf (0-5); Squamous Epithelial Cells - UA 0-5 SEEN /hpf (0-5); White Blood Cells 0-5 SEEN /hpf (0-5)
[2018-03-18 08:35] VITALS: BP 140/80; PULSE 84; RESP 18; O2SAT 98
== END 2018-03-18 08:36 | disposition home or self-care (01) ==
PROVIDERS: Emergency Provider Emergency Medicine; Family Provider Family Medicine; PCP Family Medicine
DX: M54.6 Pain in thoracic spine (principal); I10 Essential (primary) hypertension; Z72.0 Tobacco use; Z79.899 Other long term (current) drug therapy
CPT/HCPCS: 81001; 96372; 99282

== ENCOUNTER 2018-04-02 06:18 | Emergency (ER) | payer MEDICARE, SELFPAY ==
[2018-04-02 06:19] VITALS: BP 152/122; PULSE 105; RESP 20; TEMP 36.3; O2SAT 98; BMI 34.0
--- NOTE | 2018-04-02 06:29 | ED.DCSUM_ITS ---
- ER Visit Summary Date of Service: 04/02/18 Chief Complaint: [] Back pain History of Present Illness: The patient is a 62 M with acute on chronic back pain worse over last 2 weeks. Gradual onset para thoracic. Is a sharp and aching pain worse with movement. He supposed to get injections next week. He had a recent CT done per patient that did not show anything acute. He has been on recent steroids muscle relaxants and oxycodone. He finishes last oxycodone a few days ago. He got 30 tablets the last 8 days. He does get chronic narcotics from his family doctor Physical Examination: [] Vital signs reviewed General: Well-nourished well-developed Head: Normocephalic atraumatic Eyes: Pupils equal round and reactive to light extraocular movements intact ENT: TMs clear no hemotympanum no trauma Neck: Nontender full range of motion Cardiovascular: Regular rate rhythm no murmurs normal S1-S2 Respiratory: No distress clear to auscultation bilaterally chest nontender Abdomen: Soft nontender nondistended normal bowel sounds no masses Back: Right parathoracic soreness with mild decreased range of motion secondary to pain Extremities: Nontender active range of motion ?4 extremities no trauma Skin: Normal color no trauma Neuro alert oriented cranial nerves II through XII intact normal strength sensation reflexes Test Results: [] Emergency Department Course and Treatment: [] This is a chronic problem for the patient. Given injection of morphine and Toradol. Will be discharged to continue his same home medication regimen. He will follow-up with his family doctor if he needs more narcotics. Treatment Plan: [] Disposition: [] Impression: [] Acute on chronic thoracic back pain This note was generated with [employer] dictation software. It may contain incorrect words, spelling, and punctuation that were not noted in review of the chart prior to signing ED Disposition - Plan for ED Patient: Chief Complaint: Back Referrals: Deo Ahn MD [Primary Care Provider] -
--- NOTE | 2018-04-02 06:30 | ED.DEP ---
ED Disposition - Plan for ED Patient: Disposition: Home or Assisted Living Chief Complaint: Back Instructions: Relieving Back Pain Referrals: Deo Ahn MD [Primary Care Provider] -
[2018-04-02] MEDS: Ketorolac 60 MG/2 ML Vial IM (06:32)
[2018-04-02] MEDS: morphine 8 MG/ML Syringe IM (06:32)
[2018-04-02 06:39] VITALS: BP 152/105; PULSE 87; O2SAT 95
[2018-04-02] MEDS: Ondansetron ODT 4 MG Tablet PO (06:39)
[2018-04-02 06:59] VITALS: BP 132/79; PULSE 79; RESP 20; O2SAT 97
== END 2018-04-02 07:04 | disposition home or self-care (01) ==
PROVIDERS: Emergency Provider Emergency Medicine; Family Provider Family Medicine; PCP Family Medicine
DX: M54.6 Pain in thoracic spine (principal); G89.29 Other chronic pain; Z79.899 Other long term (current) drug therapy
CPT/HCPCS: 96372; 99283

== ENCOUNTER → 2018-05-07 10:07 | Outpatient (CLI) | payer MEDICARE, SELFPAY ==
--- NOTE | 2018-05-07 10:11 | RAD_ITS ---
STUDY: X-RAY - LEFT KNEE REASON FOR EXAM: Male, 62 years old. Left knee pain TECHNIQUE: 4 view(s) of the knee. COMPARISON: None. FINDINGS: There is narrowing of the lateral compartment of the knee joint with spurs from the tibial and femoral condyles and from the margins of the patella. There are no fractures or dislocations and no knee joint effusion. The quadriceps tendons are normal. RAD/Knee 4 or More Views IMPRESSION: Mild degenerative changes of the knee. No fracture Electronically Signed: Samir An MD at 2:26 EDT Tel , Service support ,
== END ==
PROVIDERS: Family Provider Family Medicine; PCP Family Medicine; Referring Provider Physician Assistant; Visit Provider Physician Assistant
DX: M25.562 Pain in left knee (principal)
CPT/HCPCS: 73564

== ENCOUNTER 2018-10-27 17:40 | Emergency (ER) | payer MEDICARE, SELFPAY ==
[2018-10-27 17:40] VITALS: BP 165/95; PULSE 92; RESP 16; TEMP 36.9; O2SAT 98; BMI 35.4
[2018-10-27 17:55] VITALS: BP 165/95; PULSE 92; RESP 16; TEMP 36.9; O2SAT 98
--- NOTE | 2018-10-27 18:09 | ED.VIS.GEN ---
History of Present Illness Chief Complaint: Cold Sx Informant: Patient Onset: Weeks - 1 Context: Gradual Onset Timing: Continuous Quality: see below Location: face, chest Current Severity: Moderate Maximum Severity: Moderate Worsened by: coughing, blowing nose Relieved by: nothing Associated Symptoms: prod cough, wheezing/copd sx, facial pressure, congestion Narrative: Patient has COPD, no home oxygen. Using his albuterol inhaler more often, maybe 4 times a day, which is helping temporarily with his wheezing. Coughing up green, yellow sputum. When he blows his nose he has similar rhinorrhea, occasional small amounts of blood which she is also coughing out, he thinks it is probably all coming from his nose though but cannot tell for sure. No pains in his chest. No fevers. No swelling peripherally. No earache, mild sore throat. Has been using [id number] symptomatic treatment has not seen a practitioner until now. - Past Medical History (1) COPD (chronic obstructive pulmonary disease) Status: Chronic (2) Hypocalcemia Status: Chronic (3) Chronic back pain Status: Chronic (4) HTN (hypertension) Status: Chronic Past Medical History - Allergies and Home Meds Allergies/Adverse Reactions: Allergies codeine Allergy (Verified 10/27/18 17:53) Other propoxyphene HCl [From Darvon] Allergy (Verified 10/27/18 17:53) Other propoxyphene napsylate [From Darvocet-N 100] Allergy (Verified 10/27/18 17:53) Other Primary Care Physician: Deo Ahn MD [Primary Care Provider] - Surgical History: herniorrhaphy - Umbilical Smoking Status: Current every day smoker Drugs: None Review of Systems General: Denies: Chills, Fever, Sweats Eyes: Denies: Visual changes - bilaterally, Diplopia ENT: Reports: Rhinorrhea, Sore throat, - - congestion. facial pressure. Cardiovascular: Denies: Chest pain, Palpitations Respiratory: Reports: Dyspnea, Cough, Dyspnea on exertion Gastrointestinal: Denies: Abdominal pain, Nausea, Vomiting, Diarrhea, Melena, Hematochezia Genitourinary: Denies: Dysuria, Hematuria, Frequency Musculoskeletal: Reports: Back pain - chronic. Denies: Extremity Pain Skin: Denies: Rash, Wounds Neurological: Denies: Headache, Weakness, Numbness Physical Exam Vital Signs/Narrative: Vital Signs Temp Pulse Resp BP Pulse Ox 10/27/18 17:55 98.5 F 92 16 165/95 H 98 10/27/18 17:40 98.5 F 92 16 165/95 H 98 Inital Vital Signs reviewed: Yes General: Well nourished, Well developed, No Acute Distress Head: Normocephalic, Atraumatic Eyes: Perrl, EOMI ENT: Moist mucous membranes, TM's clear, Nasal congestion - and swollen turbinates bilaterally. no purutlent d/c evident., Sinus tenderness - diffuse, mild Neck: Supple, Nontender, No lymphadenopathy, No JVD Cardiovascular: Regular rate, Regular rhythm, No murmurs Respiratory: No distress, CTA bilaterally, Chest nontender, Diminished - throughout, symmetric Skin: Normal color, No rash, No Trauma Neurological: Alert, Oriented x3, Cranial nerves II-XII grossly intact, Normal Strength, Normal Sensation Psychological: Normal affect, Normal Mood Diagnostic/Tx/Re-eval Clinical Impression(s) from Imaging Studies Chest X-Ray 10/27/18 18:30 IMPRESSION: No acute cardiopulmonary process. Electronically Signed: Helen Garcia MD at 19:55 EDT Tel , Service support , - Medical Decision Making Chest x-ray is unremarkable. His vital signs are unremarkable except for elevated blood pressure and his pulse ox is normal, afebrile. He has been ill for a week and I do not think doing an influenza test and have any value. I think it is reasonable to put him on broad-spectrum antibiotics and prednisone, and have him follow-up. He was given a nebulizer treatment and has some relief and started on azithromycin. He is comfortable with this plan. ED Disposition - Plan for ED Patient: Disposition: Home or Assisted Living Diagnosis: Sinusitis, Acute bronchitis, COPD exacerbation Instructions: ED Bronchitis Asthmatic, ED COPD Flare Prescriptions: Azithromycin 250 mg PO QHS #4 tab Prednisone 10 mg PO UD #33 tab Referrals: Deo Ahn MD [Primary Care Provider] - 1 Week if not improving
[2018-10-27] MEDS: Ipratropium/Albuterol Sulfate 3 ML AMPUL.NEB INHALATION (18:11)
[2018-10-27] MEDS: predniSONE 20 MG Tablet 40 MG PO (18:14)
[2018-10-27] MEDS: Azithromycin 250 MG Tablet 500 MG PO (18:14)
[2018-10-27 18:15] VITALS: PULSE 87; RESP 18
--- NOTE | 2018-10-27 18:30 | RAD_ITS ---
STUDY: X-RAY CHEST REASON FOR EXAM: Male, 63 years old. Cough. Shortness of breath. TECHNIQUE: PA and lateral views of the chest. COMPARISON: December 15, 2015, June 05, 2017 and December 11, 2017 FINDINGS: There is no new focal consolidation. There is a stable calcified focus within the left midlung. Normal size heart. Normal mediastinum and [place]. Normal visualized pulmonary arteries. Normal visualized aortic arch and descending thoracic aorta. There are diffuse degenerative changes of the visualized thoracic spine. Normal visualized ribs, clavicles, and shoulders. There is no demonstrated abnormality of the visualized soft tissue structures of the upper abdomen. RAD/Chest PA and Lateral IMPRESSION: No acute cardiopulmonary process. Electronically Signed: Helen Garcia MD at 19:55 EDT Tel , Service support ,
[2018-10-27 20:48] VITALS: BP 142/81; PULSE 106; RESP 16; O2SAT 96
== END 2018-10-27 20:49 | disposition home or self-care (01) ==
PROVIDERS: Emergency Provider Emergency Medicine; Family Provider Family Medicine; PCP Family Medicine
DX: J44.0 Chronic obstructive pulmonary disease with (acute) lower respiratory infection (principal); J20.9 Acute bronchitis, unspecified; J44.1 Chronic obstructive pulmonary disease with (acute) exacerbation; J32.9 Chronic sinusitis, unspecified; I10 Essential (primary) hypertension; E83.51 Hypocalcemia; M54.9 Dorsalgia, unspecified; G89.29 Other chronic pain; F17.200 Nicotine dependence, unspecified, uncomplicated; Z79.899 Other long term (current) drug therapy
CPT/HCPCS: 71046; 94640; 99283

== ENCOUNTER → 2018-11-22 08:47 | Outpatient (CLI) | payer MEDICARE, SELFPAY ==
[2018-10-27 17:40] VITALS: BMI 35.4
[2018-11-22 10:04] LABS: Color, Urine Yellow (Yellow); Glucose, Dipstick Normal (Normal); Ketone-Dipstick Negative (Negative); Leukocyte Esterase-Dipstick Negative /ul (Negative); Nitrite-Dipstick Negative (Negative); Occult Blood-Urine Negative /ul (Negative); Protein-Dipstick 30 mg/dl (Negative); Urine Bilirubin Dipstick Negative (Negative); Urine Clarity Clear (Clear); Urine Urobilinogen Normal (Normal)
[2018-11-22 10:09] LABS: Absolute Lymphocyte Count 1.85 X10^3/ul (0.83-4.51); Absolute Neutrophil Count 4.2 X10^3/uL (2.0-7.7); Basophil# 0.04 X10^3/uL; Basophil% 0.6 % (0-1); Eosinophil# 0.26 X10^3/uL; Eosinophils% 3.7 % (0-5); Hematocrit 46.1 % (40-54); Hemoglobin 15.5 g/dl (13.0-16.5); Lymphocyte # 1.85 X10^3/ul (4.0); Lymphocyte % 26.7 % (19-41); Mean Corp Hgb Conc 33.6 g/gl (32-36); Mean Corpuscular Hgb 29.2 pg (27.0-32.0); Mean Corpuscular Volume 86.8 fL (80-94); Mean Platelet Vol. 11.9 fl (6.2-12.0); Monocyte# 0.54 X10^3/uL; Monocyte% 7.8 % (0-10); Neutrophil # 4.23 X10^3/uL (2.7-7.7); Neutrophil % 60.9 % (47-70); Platelet Count 193 K/mm3 (150-450); RBC Distribution Width CV 13.6 % (11.6-14.6); RBC Distribution Width SD 42.9 fl (35.1-43.9); Red Blood Count 5.31 M/mm3 (4.6-6.2); White Blood Count 6.9 K/mm3 (4.4-11.0)
[2018-11-22 10:11] LABS: POSITIVE COUNT NO; POSITIVE DIFFERENTIAL NO; POSITIVE MORPHOLOGY NO
[2018-11-22 11:14] LABS: ALB/GLOB Ratio 0.9 RATIO (0.9-2.4); AST(SGOT) 21 U/L (15-37); Alanine Aminotransfer ALT/SGPT 38 U/L (16-61); Albumin, Serum 3.6 g/dL (3.2-5.0); Alkaline Phosphatase 130 U/L (45-117); Anion Gap 8 (5-15); BUN 16 mg/dL (7-18); BUN/Creat Ratio 13.6 RATIO (10-20); Calcium,Total 8.8 mg/dL (8.5-10.1); Chloride 111 mmol/L (98-107); Cholesterol 211 mg/dL (200); Creatinine, Serum 1.18 mg/dL (0.70-1.30); EST Glomerular Filtration Rate 67 mL/min (>60); Est Glom Filt Rate - Afr Amer 81 mL/min (>60); Globulin 3.8 g/dL (2.2-4.2); Glucose 136 mg/dL (74-106); High Density Lipoprotein 64 mg/dL; PSA,Total - Annual Screen 1.38 ng/mL (0.00-4.00); Potassium 3.6 mmol/L (3.5-5.1); Protein, Total 7.4 g/dL (6.4-8.2); Sodium Level 141 mmol/L (136-145); Triglycerides 107 mg/dL; Very Low Density Lipoprotein 21 mg/dL (5-40)
== END ==
PROVIDERS: Family Provider Family Medicine; PCP Family Medicine; Referring Provider Family Medicine; Visit Provider Family Medicine
DX: Z00.00 Encounter for general adult medical examination without abnormal findings (principal); I10 Essential (primary) hypertension; D50.9 Iron deficiency anemia, unspecified; Z12.5 Encounter for screening for malignant neoplasm of prostate
CPT/HCPCS: 36415; 80053; 80061; 81002; 84153; 85025; G0103

== ENCOUNTER → 2018-12-25 14:33 | Outpatient (CLI) | payer MEDICARE, SELFPAY ==
[2018-12-25 14:25] VITALS: BMI 35.4
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
== END ==
PROVIDERS: Family Provider Family Medicine; PCP Family Medicine; Referring Provider Orthopaedic Surgery; Visit Provider Orthopaedic Surgery
DX: M25.562 Pain in left knee (principal)
CPT/HCPCS: 73564

== ENCOUNTER 2018-12-27 12:41 | Emergency (ER) | payer MEDICARE, SELFPAY ==
[2018-12-25 14:25] VITALS: BMI 35.4
[2018-12-27 12:42] VITALS: BP 133/76; PULSE 119; RESP 18; TEMP 37.3; O2SAT 98; BMI 34.9
[2018-12-27] MEDS: HYDROmorphone 1 MG/ML Syringe 2 MG IM (13:08)
--- NOTE | 2018-12-27 14:10 | ED.VIS.GEN ---
History of Present Illness Chief Complaint: Back Narrative: 63-year-old male presents with acute on chronic back pain. He has a history of chronic back pain secondary to spinal stenosis. He is seeing his spine surgeon next Sunday for this. He has been having a flareup for several weeks. It is bilateral in the lumbar region and occasionally radiates down the right buttock which is typical for him. He denies groin paresthesias or bowel/bladder dysfunction. Denies any fever, chills, or midline pain. He denies any recent falls. The pain is moderate in severity. It is worse when bending forward. It appears to be somewhat better when he lays flat on his stomach. Past Medical History - Allergies and Home Meds Allergies/Adverse Reactions: Allergies codeine Allergy (Verified 12/27/18 12:42) Other propoxyphene HCl [From Darvon] Allergy (Verified 12/27/18 12:42) Other propoxyphene napsylate [From Darvocet-N 100] Allergy (Verified 12/27/18 12:42) Other Primary Care Physician: Deo Ahn MD [Primary Care Provider] - Prior records reviewed: Yes Surgical History: herniorrhaphy - Umbilical Smoking Status: Current every day smoker Review of Systems General: Denies: Chills, Fever, Sweats Eyes: Denies: Visual changes - bilaterally, Diplopia ENT: Denies: Rhinorrhea, Sore throat Cardiovascular: Denies: Chest pain, Palpitations Respiratory: Denies: Dyspnea, Cough, Dyspnea on exertion Gastrointestinal: Denies: Abdominal pain, Nausea, Vomiting, Diarrhea, Melena, Hematochezia Genitourinary: Denies: Dysuria, Hematuria, Frequency Musculoskeletal: Reports: Back pain. Denies: Extremity Pain Skin: Denies: Rash, Wounds Neurological: Denies: Headache, Weakness, Numbness Physical Exam Vital Signs/Narrative: Vital Signs Temp Pulse Resp BP Pulse Ox 12/27/18 12:42 99.2 F H 119 H 18 133/76 H 98 General: Well nourished, Well developed, No Acute Distress Head: Normocephalic, Atraumatic Eyes: Perrl, EOMI ENT: Moist mucous membranes, No rhinorrhea Neck: Supple, Nontender Cardiovascular: Regular rate, Regular rhythm, No murmurs Respiratory: No distress, CTA bilaterally, Chest nontender Abdomen: Soft, Nontender, Nondistended, Normal bowel sounds Back: Nontender, Normal Inspection, - - There is bilateral paraspinal lumbar tenderness. No midline tenderness, erythema, or fluctuance. Extremities: Nontender, No edema Skin: Normal color, No rash Neurological: Alert, Oriented x3, Cranial nerves II-XII grossly intact, Normal Strength, Normal Sensation, Normal DTR, Normal Gait Psychological: Normal affect, Normal Mood Diagnostic/Tx/Re-eval - Medical Decision Making He was given 2 mg of Dilaudid IM. On reexamination, he is feeling much better. He is sitting up in the bed. He can stand on his toes. He can ambulate without difficulty. He has no midline tenderness, erythema, or fluctuance to suggest paraspinal or epidural abscess. He has normal strength and sensation in both lower extremities with symmetric reflexes and no clonus. No evidence of cauda equina syndrome. He is comfortable going home. I feel he can safely follow-up with his surgeon and return here if worse. He was given a prescription for Flexeril, Medrol Dosepak, and 12 Percocet tablets. On reexamination after his pain was addressed, his heart rate is below 100. ED Disposition - Plan for ED Patient: Disposition: Home or Assisted Living Diagnosis: Acute exacerbation of chronic low back pain Instructions: ED Neck Back Pain General Prescriptions: Oxycodone HCl/Acetaminophen [Percocet 5/325] 1 tablet PO Q6H PRN PRN 3 Days #12 tablet PRN Reason: Pain MethylPREDNISolone DosePak [Medrol DosePak] 4 mg PO UD #1 box cycloBENZAPRine HCl [Flexeril] 10 mg PO TID PRN #20 tablet PRN Reason: Muscle Spasm Referrals: Deo Ahn MD [Primary Care Provider] - As soon as possible
[2018-12-27 14:26] VITALS: BP 143/99; PULSE 97; RESP 18; O2SAT 99
== END 2018-12-27 14:26 | disposition home or self-care (01) ==
PROVIDERS: Emergency Provider Emergency Medicine; Family Provider Family Medicine; PCP Family Medicine
DX: M54.5 Low back pain (principal); G89.29 Other chronic pain; F17.200 Nicotine dependence, unspecified, uncomplicated; Z79.899 Other long term (current) drug therapy; Z88.5 Allergy status to narcotic agent
CPT/HCPCS: 96372; 99282

== ENCOUNTER 2019-04-08 20:58 | Emergency (ER) | payer MEDICARE, SELFPAY ==
[2019-02-12 14:15] VITALS: BMI 34.9
[2019-04-08 20:59] VITALS: BP 161/80; PULSE 101; RESP 18; TEMP 37.2; O2SAT 100; BMI 35.6
[2019-04-08] MEDS: Ondansetron 4 MG/2 ML Vial IV (21:48)
[2019-04-08] MEDS: morphine 8 MG/ML Syringe IV (21:48)
[2019-04-08 21:57] VITALS: BP 133/64; PULSE 76; RESP 18; O2SAT 99
--- NOTE | 2019-04-08 23:28 | ED.VIS.GEN ---
History of Present Illness Chief Complaint: Back Detail of Chief Complaint: Left upper back pain atraumatic Informant: Patient, Significant Other Onset: Today Context: Sudden Onset Timing: Continuous Quality: Severe pain Location: Superior left scapula Current Severity: Moderate Maximum Severity: Severe Worsened by: Touch greater than movement Relieved by: Nothing Associated Symptoms: Tingling sensation Narrative: She is a 63-year-old male presents with atraumatic left upper back pain that started today. He denies paresthesia, anesthesia motor tics of his left upper extremity. He denies neck pain. He does complain of tingling in teeth to T3 dermatome. He has not noted a rash. He denies fever, chills or night sweats. He denies respiratory cardiac symptoms. He states he has had shingles in the past. He was not vaccinated for shingles. He denies nausea, vomiting diarrhea. Prior similar symptoms: No Recent Illness/Hospitalization: No - Past Medical History (1) COPD (chronic obstructive pulmonary disease) Status: Chronic (2) HTN (hypertension) Status: Chronic (3) Tobacco dependence Status: Chronic Past Medical History - Allergies and Home Meds Allergies/Adverse Reactions: Allergies codeine Allergy (Verified 04/08/19 21:02) Other propoxyphene HCl [From Darvon] Allergy (Verified 04/08/19 21:02) Other propoxyphene napsylate [From Darvocet-N 100] Allergy (Verified 04/08/19 21:02) Other Primary Care Physician: Deo Ahn MD [Primary Care Provider] - Prior records reviewed: Yes Surgical History: herniorrhaphy - Umbilical Lives: Spouse/ Significant Other Smoking Status: Current every day smoker Alcohol: Rare Drugs: None Review of Systems General: Denies: Chills, Fever, Malaise, Subjective, Sweats Eyes: Denies: Visual changes - bilaterally, Blurred Vision - bilaterally ENT: Denies: Bilateral ear pain, Rhinorrhea, Sore throat Cardiovascular: Denies: Chest pain, Palpitations, Heart racing Respiratory: Denies: Dyspnea, Cough, Dyspnea on exertion Gastrointestinal: Denies: Abdominal pain, Nausea, Vomiting, Diarrhea, Melena, Hematochezia Genitourinary: Denies: Dysuria, Hematuria, Frequency Musculoskeletal: Reports: Back pain. Denies: Myalgias, Arthralgias, Neck pain, Swelling, Extremity Pain Skin: Denies: Rash, Wounds Neurological: Reports: Parasthesia. Denies: Headache, Weakness, Numbness Hematologic: Denies: Easy bruising, Easy bleeding Allergy: Denies: Uticaria, Swelling of the mouth Physical Exam Vital Signs/Narrative: Vital Signs Temp Pulse Resp BP Pulse Ox 04/08/19 21:57 76 18 133/64 H 99 04/08/19 20:59 99 F 101 H 18 161/80 H 100 Inital Vital Signs reviewed: Yes General: Well nourished, Well developed, Acute Distress Head: Normocephalic, Atraumatic. Negative for: Trauma, Tenderness Eyes: Perrl, EOMI. Negative for: Pale conjunctiva, Scleral icterus ENT: Moist mucous membranes, No rhinorrhea Neck: Supple, Nontender, No lymphadenopathy, No JVD Cardiovascular: Regular rhythm, No murmurs, Normal S1, Normal S2, Tachycardia Respiratory: No distress, CTA bilaterally, Chest nontender Back: Normal Inspection. Negative for: Nontender, CVA tenderness, Spinal tenderness Extremities: Nontender, No edema Skin: Normal color, No rash, No Trauma. Negative for: Cyanosis, Diaphoresis, Jaundice Neurological: Alert, Oriented x3, Cranial nerves II-XII grossly intact, Normal Strength, Normal Sensation Psychological: Normal affect, Normal Mood Diagnostic/Tx/Re-eval - Medical Decision Making With history of no trauma and no objective findings other than pain out of proportion to touch with complaint of paresthesia this may represent shingles. Since there is no rash will not treat with antiviral or medication for neuropathic pain. IV was established he was treated with 8 mg of morphine and 4 mg Zofran. When he was reassessed he was markedly better. He was able to sit up. He is able to move his left upper extremity. Plan is to discharge with prescription for Percocet. He was instructed to return if he develops a rash or any concerning symptoms. ED Disposition - Plan for ED Patient: Disposition: Home or Assisted Living Diagnosis: Upper back pain on left side, Paresthesia Instructions: BACK AND NECK PAIN, General Prescriptions: Oxycodone HCl/Acetaminophen [Percocet 5/325] 1 tab PO Q6H PRN PRN 3 Days #12 tab PRN Reason: Pain Prescription Printed Referrals: Deo Ahn MD [Primary Care Provider] - 3-5 Days if not improving Additional Instructions: If you develop a rash see Dr. Deo Ahn in 24 hours.
[2019-04-08 23:43] VITALS: BP 144/71; PULSE 74; RESP 17; O2SAT 95
== END 2019-04-08 23:44 | disposition home or self-care (01) ==
PROVIDERS: Emergency Provider Emergency Medicine; Family Provider Family Medicine; PCP Family Medicine
DX: M54.6 Pain in thoracic spine (principal); R20.2 Paresthesia of skin; J44.9 Chronic obstructive pulmonary disease, unspecified; I10 Essential (primary) hypertension; F17.200 Nicotine dependence, unspecified, uncomplicated; Z79.899 Other long term (current) drug therapy
CPT/HCPCS: 96374; 96375; 99284; A4216; J2405

== ENCOUNTER → 2019-05-01 13:40 | Outpatient (CLI) | payer MEDICARE, SELFPAY ==
[2019-04-08 20:59] VITALS: BMI 35.6
[2019-05-01 16:10] LABS: BUN 17 mg/dL (7-18); EST Glomerular Filtration Rate 65 mL/min (>60); Est Glom Filt Rate - Afr Amer 79 mL/min (>60)
== END ==
PROVIDERS: Family Provider Family Medicine; PCP Family Medicine; Referring Provider Psychiatry & Neurology Neurology; Visit Provider Psychiatry & Neurology Neurology
DX: M54.6 Pain in thoracic spine (principal); M54.2 Cervicalgia
CPT/HCPCS: 36415; 82565; 84520

== ENCOUNTER → 2019-08-01 08:20 | Outpatient (CLI) | payer MEDICARE, SELFPAY ==
[2019-06-05 13:55] VITALS: BMI 35.6
[2019-08-01 10:19] LABS: Hemoglobin A1c 5.6 % (4.2-6.3)
[2019-08-01 10:22] LABS: AST(SGOT) 25 U/L (15-37); Alanine Aminotransfer ALT/SGPT 37 U/L (16-61); Albumin, Serum 3.7 g/dL (3.2-5.0); Alkaline Phosphatase 148 U/L (45-117); Anion Gap 7 (5-15); BUN 19 mg/dL (7-18); BUN/Creat Ratio 14.8 RATIO (10-20); Bilirubin, Direct 0.09 mg/dL (0.00-0.30); Calcium,Total 8.7 mg/dL (8.5-10.1); Chloride 112 mmol/L (98-107); Creatinine, Serum 1.28 mg/dL (0.70-1.30); EST Glomerular Filtration Rate 61 mL/min (>60); Est Glom Filt Rate - Afr Amer 73 mL/min (>60); Globulin 3.6 g/dL (2.2-4.2); Glucose 113 mg/dL (74-106); Potassium 3.7 mmol/L (3.5-5.1); Protein, Total 7.3 g/dL (6.4-8.2); Sodium Level 144 mmol/L (136-145)
== END ==
PROVIDERS: Family Provider Family Medicine; PCP Family Medicine; Referring Provider Family Medicine; Visit Provider Family Medicine
DX: I10 Essential (primary) hypertension (principal); R73.9 Hyperglycemia, unspecified; R94.5 Abnormal results of liver function studies
CPT/HCPCS: 36415; 80048; 80076; 83036

== ENCOUNTER 2019-09-04 15:26 | Emergency (ER) | payer MEDICARE, MEDICAID, SELFPAY ==
[2019-06-05 13:55] VITALS: BMI 35.6
[2019-09-04 15:27] VITALS: BP 135/80; PULSE 94; RESP 17; TEMP 37; O2SAT 98; BMI 34.7
[2019-09-04] MEDS: Orphenadrine 60 MG/2 ML Ampul IM (15:47)
[2019-09-04] MEDS: Ketorolac 60 MG/2 ML Vial IM (15:47)
[2019-09-04] MEDS: Ondansetron ODT 4 MG Tablet PO (15:58)
--- NOTE | 2019-09-04 16:01 | RAD_ITS ---
STUDY: X-RAY - LUMBAR SPINE REASON FOR EXAM: Male, 64 years old. FELL ON ICE. LOWER BACK PAIN TECHNIQUE: 3 view(s) of the lumbar spine were obtained. COMPARISON: Prior lumbar spine films of October 23, 2017 FINDINGS: Normal lumbar lordosis. There is no substantial scoliosis. There is a normal alignment of the vertebrae. Mild disc narrowing with mild to moderate spondylitic endplate changes more advanced at L2-3, L4-5 and L5-S1. Hypertrophic facet arthrosis primarily at L4-5 and L5-S1. There is no demonstrated fracture. Vascular calcifications. RAD/Lumbar Spine 2 or 3 Views IMPRESSION: Normal alignment of the lumbar spine without acute fracture deformity. Degenerative disc and joint changes stable from prior exam of 2017. Electronically Signed: Olimpia Coles MD at 16:31 EST , Service support ,
[2019-09-04] MEDS: HYDROcodone Bitartrate/Apap 5/325 Tablet PO (17:12)
[2019-09-04 17:14] VITALS: BP 124/83; PULSE 80; RESP 18; O2SAT 96
--- NOTE | 2019-09-04 17:59 | ED.VISSUMM ---
- ER Visit Summary Date of Service: 09/04/19 Chief Complaint: Fall History of Present Illness: The patient is a 64 M with a fall. This was a mechanical slip on ice. He landed on his lower back. He complains of right lower back pain and numbness going down his lateral right leg above the knee. No other injuries. Physical Examination: Afebrile and vital signs unremarkable. Patient has tenderness to palpation in the right paraspinal lumbar region as well as the right buttock. Skin appears normal. Further examination was performed after treatment with Toradol and Norflex. He was able to sit up. He had normal reflexes. Good strength and sensation, except for subjective decreased sensation to his right lateral thigh. Test Results: X-ray showed chronic changes. No fracture or deformity. Emergency Department Course and Treatment: Patient was treated with Toradol and Norflex. More detailed exam was performed, as above. He still had some continued pain and was treated with [place]. He was able to ambulate and his symptoms were much improved. He will follow-up with his PCP for further outpatient management as needed. Return for any worsening issues, bowel or bladder changes, weakness, or any other concerns. Treatment Plan: Anti-inflammatories, Flexeril, [place] Disposition: Discharge Impression: 1. Right lumbar back pain This note was generated with [employer] dictation software. It may contain incorrect words, spelling, and punctuation that were not noted in review of the chart prior to signing ED Disposition - Plan for ED Patient: Referrals: Deo Ahn MD [Primary Care Provider] -
--- NOTE | 2019-09-04 18:02 | ED.DEP ---
ED Disposition - Plan for ED Patient: Instructions: FALL, Mechanical Prescriptions: cycloBENZAPRine HCl [Flexeril] 10 mg PO TID PRN #20 tab PRN Reason: Muscle Spasm Prescription Printed Naproxen [Naprosyn] 500 mg PO BID #14 tab Prescription Printed Hydrocodone Bitart/Apap 5-325 [[place] 5MG-325MG] 1 tab PO Q6H PRN PRN 3 Days #10 tab PRN Reason: Pain Prescription Printed Referrals: Deo Ahn MD [Primary Care Provider] -
[2019-09-04 18:19] VITALS: PULSE 78; RESP 18; O2SAT 99
== END 2019-09-04 18:20 | disposition home or self-care (01) ==
LOC: ED 16:15
PROVIDERS: Emergency Provider Emergency Medicine; PCP Family Medicine
DX: M54.5 Low back pain (principal)
CPT/HCPCS: 72100; 96372; 99283

== ENCOUNTER → 2020-02-27 09:22 | Outpatient (CLI) | payer MEDICARE, MEDICAID, SELFPAY ==
[2020-01-12 07:50] VITALS: BMI 34.7
[2020-02-27 12:12] LABS: Color, Urine Yellow (Yellow); Glucose, Dipstick Normal (Normal); Ketone-Dipstick Negative (Negative); Leukocyte Esterase-Dipstick 25 /ul (Negative); Nitrite-Dipstick Negative (Negative); Occult Blood-Urine Negative /ul (Negative); Protein-Dipstick 15 mg/dl (Negative); Urine Bilirubin Dipstick Negative (Negative); Urine Clarity Clear (Clear); Urine Urobilinogen Normal (Normal)
[2020-02-27 12:17] LABS: Absolute Lymphocyte Count 1.75 X10^3/uL (0.83-4.51); Absolute Neutrophil Count 3.3 X10^3/uL (2.0-7.7); Basophil# 0.06 X10^3/uL; Eosinophil# 0.23 X10^3/uL; Hematocrit 42.5 % (40-54); Hemoglobin 13.8 g/dL (13.0-16.5); Lymphocyte # 1.75 X10^3/ul (4.0); Lymphocyte % 30.2 % (19-41); Mean Corp Hgb Conc 32.5 g/dL (32-36); Mean Corpuscular Hgb 30.9 pg (27.0-32.0); Mean Corpuscular Volume 95.3 fL (80-94); Mean Platelet Vol. 11.8 fl (6.2-12.0); Monocyte# 0.49 X10^3/uL; Monocyte% 8.4 % (0-10); NRBC Flagged by Analyzer 0 % (0-5); Neutrophil # 3.25 X10^3/uL (2.7-7.7); Neutrophil % 56.1 % (47-70); Platelet Count 191 K/mm3 (150-450); RBC Distribution Width CV 13.8 % (11.6-14.6); RBC Distribution Width SD 48.6 fl (35.1-43.9); Red Blood Count 4.46 M/mm3 (4.6-6.2); White Blood Count 5.8 K/mm3 (4.4-11.0)
[2020-02-27 12:39] LABS: ALB/GLOB Ratio 0.9 RATIO (0.9-2.4); AST(SGOT) 25 U/L (15-37); Alanine Aminotransfer ALT/SGPT 39 U/L (16-61); Albumin, Serum 3.5 g/dL (3.2-5.0); Alkaline Phosphatase 109 U/L (45-117); Anion Gap 5 (5-15); BUN 22 mg/dL (7-18); BUN/Creat Ratio 19.6 RATIO (10-20); Calcium,Total 8.5 mg/dL (8.5-10.1); Chloride 110 mmol/L (98-107); Cholesterol 168 mg/dL (200); Creatinine, Serum 1.12 mg/dL (0.70-1.30); EST Glomerular Filtration Rate 70 mL/min (>60); Est Glom Filt Rate - Afr Amer 85 mL/min (>60); Globulin 3.7 g/dL (2.2-4.2); Glucose 91 mg/dL (74-106); High Density Lipoprotein 55 mg/dL; PSA,Total - Annual Screen 1.52 ng/mL (0.00-4.00); Potassium 3.8 mmol/L (3.5-5.1); Protein, Total 7.2 g/dL (6.4-8.2); Sodium Level 140 mmol/L (136-145); Triglycerides 61 mg/dL; Very Low Density Lipoprotein 12 mg/dL (5-40)
[2020-02-27 12:54] LABS: Hemoglobin A1c 5.3 % (3.8-5.6)
== END ==
PROVIDERS: PCP Family Medicine; Referring Provider Family Medicine; Visit Provider Family Medicine
DX: Z00.00 Encounter for general adult medical examination without abnormal findings (principal); Z12.5 Encounter for screening for malignant neoplasm of prostate; D50.9 Iron deficiency anemia, unspecified; I10 Essential (primary) hypertension; R73.9 Hyperglycemia, unspecified
CPT/HCPCS: 36415; 80053; 80061; 81002; 83036; 84153; 85025; G0103

== ENCOUNTER → 2020-03-18 17:41 | Outpatient (CLI) | payer MEDICARE, MEDICAID, SELFPAY ==
[2020-01-12 07:50] VITALS: BMI 34.7
== END ==
PROVIDERS: PCP Family Medicine; Referring Provider Family Medicine; Visit Provider Family Medicine
DX: Z20.828 Contact with and (suspected) exposure to other viral communicable diseases (principal)
CPT/HCPCS: 87635; 94799; U0003

== ENCOUNTER 2020-12-16 16:39 | Observation (INO) | payer MEDICARE, MEDICAID, SELFPAY ==
[2020-04-14 15:07] VITALS: BMI 34.7
[2020-12-16] VITALS (7 sets, daily range): BP systolic 126–162; BP diastolic 77–98; PULSE 70–81; RESP 16–18; TEMP 36.6–37.2; O2SAT 97–100; BMI 31.6; BMI 32.5
--- NOTE | 2020-12-16 16:46 | EKG12_ITS ---
Test Reason : CP Blood Pressure : / mmHG Vent. Rate : 095 BPM Atrial Rate : 095 BPM P-R Int : 168 ms QRS Dur : 100 ms QT Int : 342 ms P-R-T Axes : 069 079 065 degrees QTc Int : 429 ms Normal sinus rhythm Normal ECG Confirmed by TATI ZURITA, DANIEL ([id number]), magazine editor ANUPAM PEÑA ([id number]) on 12/21/2020 10:05:20 A M Referred By: TYREE Confirmed By:ANDRES DUFFY MD
--- NOTE | 2020-12-16 16:50 | RAD_ITS ---
HISTORY: chest pain EXAMINATION/TECHNIQUE: XR Chest 1 View: Portable upright AP chest x-ray COMPARISON: 10/27/18 FINDINGS: LINES/DEVICES: None. LUNGS: No consolidation, edema or effusion. Stable calcified granuloma left mid lung field. No pneumothorax. MEDIASTINUM AND CARDIOVASCULAR STRUCTURES: Cardiac silhouette not enlarged. Central airways and mediastinal contour are unremarkable. BONES AND SOFT TISSUES: No acute bony abnormalities. RAD/Chest 1 View (Portable) IMPRESSION: No radiographic evidence of acute cardiopulmonary disease. at 1721 Reported and signed by: Pilo Francis MD Electronically Signed: Pilo Francis MD at 17:19 EDT Tel , Service support ,
[2020-12-16] MEDS: Ondansetron 4 MG/2 ML Vial IV (16:52)
[2020-12-16] MEDS: Aspirin 81 MG TAB.CHEW 324 MG PO (16:52)
[2020-12-16] MEDS: Morphine 4 MG/ML Syringe IV (16:52)
--- NOTE | 2020-12-16 17:03 | EDS_ITS ---
HPI History of Present Illness Chief Complaint: Chest Pain Informant: patient Onset/Context/Timing Onset: Today Activity at onset: gradual Timing: Intermittent Quality: Positive for Heaviness and Pain Location: Left Parasternal Current Severity: Mild Maximum Severity: Moderate Worsened By: Nothing Relieved By: Nothing Associated Symptoms: Positive for Dyspnea; Negative for Nausea, Vomiting and Diaphoresis Narrative Narrative: The patient is a 65-year-old male presents to the emergency department chest pain. The patient states he was at work. He states he began have pain the left side of his chest and some tingling in his arm. He states he felt mildly short of breath. Since then, the pain has resolved. He has no hi story of coronary vascular disease, but does have history of hypertension, COPD, and is a daily smoker. He denies fevers or chills. He denies other systemic symptoms. He states he is otherwise been in his normal state of health. He states his major complaint is that with moving, he thinks that he exacerbated his chronic back pain. Prior Similar Symptoms: No Recent Illness/Hospitalization: No PFSH PFS Medical History Heavy alcohol use Hepatitis C Home Medications albuterol sulfate 2 puff INHALATION Q6H PRN PRN 12/02/13 [History Last Taken 10/27/18] pantoprazole 40 mg PO DAILY 12/02/13 [History Last Taken 10/27/18] amlodipine 5 mg PO DAILY 12/27/18 [History Last Taken Unknown] lisinopril 20 mg PO DAILY 09/04/19 [History Last Taken Unknown] gabapentin 600 mg tablet 1 tablet PO DAILY 01/12/20 [History Last Taken Unknown] bupropion HCl 300 mg PO DAILY 12/16/20 [History Last Taken Unknown] Allergy/AdvReac Type Severity Reaction Status Date / Time codeine Allergy Other Verified 12/16/20 16:43 propoxyphene HCl Allergy Other Verified 12/16/20 16:43 [From Darvon] propoxyphene napsylate Allergy Other Verified 12/16/20 16:43 [From Darvocet-N 100] Surgical History Chronic right shoulder pain H/O arthroscopy of left knee H/O right knee surgery S/P hernia repair Social History Smoking Status: Current every day smoker ROS ROS ED Constitutional Constitutional ED: Denies chills or fever(s) Eyes Eyes: Denies blurry vision or change in vision ENT ENT ED: Denies ear pain or sore throat Cardiovascular Cardiovascular: Reports chest pain Respiratory/Chest Respiratory/Chest: Reports dyspnea Gastrointestinal Gastrointestinal: Denies abdominal pain, nausea or vomiting Genitourinary Genitourinary ED: Denies dysuria or urinary frequency Musculoskeletal Musculoskeletal: Denies arthralgias or myalgias Integumentary Denies rash Neurologic Neurologic: Denies headache(s) or paresthesias Psychiatric Psychiatric: Denies anxiety or depression Endocrine Endocrinology: Denies polydipsia or polyuria Allergic/Immunologic Allergic/Immunologic ED: Denies urticaria EXAM Physical Exam Const Vital Signs: 12/16/20 16:40 12/16/20 16:41 Temperature 98 F Temperature Source Oral Pulse Rate 81 Respiratory Rate 18 Blood Pressure 158/91 H Blood Pressure Mean 113 Pulse Ox 99 Oxygen Delivery Method Room Air Positive well nourished and well developed General Appearance ED: well developed HEENT Reports normocephalic, head/scalp atraumatic and moist mucous membranes Eyes PERRL and EOMs intact bilaterally Neck no lymphadenopathy and supple General: Negative for tenderness Chest Wall inspection of chest normal Resp normal respiratory effort and clear to auscultation bilaterally Cardio regular rate, regular rhythm and no murmurs GI normal to inspection, nondistended, normoactive bowel sounds Palpation: Negative for tender, guarding or rebound tenderness present Back/Spine no CVA tenderness Cervical Spine: Negative for cervical spine tenderness Thoracic Spine / Upper Back: Negative for thoracic spinal tenderness Extremity normal to inspection General Extremety ED: Negative for tenderness Neuro oriented x3 and CN's II-XII intact bilaterally Neuro Narrative: No focal deficits appreciated. Sensorium / Orientation: alert Psych mental status grossly normal Skin no rashes or lesions noted, no wounds and skin turgor normal Heart Score History: Moderately Suspicious ECG: Nonspecific Repolarization Age: >45 - <65 years Risk Factors: 1 or 2 Risk Factors Troponin: </= Normal Limit Score: 4 MDM MDM MDM Narrative Medical decision making narrative: The patient presents with chest pain. It was substernal and radiated to his left arm. EKG was obtained on arrival. There is no evidence of acute ischemia. Patient was kept on a application development liaison. There is no dysrhythmia. Screening labs were obtained. Chest x-ray shows no evidence of volume overload. Cardiac enzymes are normal. Patient had recurrence of pain, but it was less than 30 seconds. He is now resting pain-free. Given his age and risk factors, I do feel that he would benefit from observation. Patient was discussed with the hospitalist. Impression 1. Chest pain Lab Data Attestation: I reviewed the patient's lab results. Labs: Laboratory Results - last 24 hr 12/16/20 12/16/20 16:50 16:50 WBC 7.2 RBC 4.79 Hgb 14.5 Hct 43.2 MCV 90.2 MCH 30.3 MCHC 33.6 RDW Std Deviation 44.5 H RDW Coeff of [place] 13.4 Plt Count 242 MPV 11.6 Immature Gran % (Auto) 0.100 Neut % (Auto) 69.6 Lymph % (Auto) 20.0 [place] % (Auto) 7.8 Eos % (Auto) 1.7 Baso % (Auto) 0.8 Absolute Neuts (auto) 5.0 Absolute Lymphs (auto) 1.44 Nucleated RBC % 0 Sodium 143 Potassium 3.6 Chloride 111 H Carbon Dioxide 26.0 Anion Gap 6 BUN 13 Creatinine 1.20 Estim Creat Clear Calc 73.26 Est GFR (MDRD) Af Amer 79 Est GFR (MDRD) Non-Af 65 BUN/Creatinine Ratio 10.8 Glucose 113 H Calcium 9.2 Troponin I < 0.015 Radiography Chest X-Ray - ED: 1 View, Read by ED Physician, Heart, Lungs, Mediastinum, Bony Structures and No Acute Disease Diagnostic Testing: Radiology Impression Chest X-Ray 12/16/20 16:50 IMPRESSION: No radiographic evidence of acute cardiopulmonary disease. at 1721 Reported and signed by: Pilo Francis MD Electronically Signed: Pilo Francis MD at 17:19 EDT Tel , Service support , EKG Initial EKG: Attestation: I personally reviewed and interpreted this EKG as follows: Interpretation: Sinus Rhythm Prior EKG tracings: not available for review Prior: Unchanged Discharge Plan Triage Chief Complaint: Chest Pain ED Provider: Ramin Reynolds Dx/Rx/DC Orders Prescriptions: No Action gabapentin 600 mg tablet 1 tablet PO DAILY RF: 0 pantoprazole 40 MG tablet 40 mg PO DAILY RF: 0 albuterol sulfate 1 PUFF inhaler 2 puff INHALATION Q6H PRN PRN (Reason: Sob &/Or Wheezing) RF: 0 amlodipine 5 MG tablet 5 mg PO DAILY RF: 0 lisinopril 20 MG tablet 20 mg PO DAILY RF: 0 bupropion HCl 300 mg tablet extended release 24 hr 300 mg PO DAILY RF: 0 Primary Care Provider: Deo Ahn
[2020-12-16 17:17] LABS: Absolute Lymphocyte Count 1.44 X10^3/uL (0.83-4.51); Basophil# 0.06 X10^3/uL; Basophil% 0.8 % (0-1); Eosinophil# 0.12 X10^3/uL; Eosinophils% 1.7 % (0-5); Hematocrit 43.2 % (40-54); Hemoglobin 14.5 g/dL (13.0-16.5); Lymphocyte # 1.44 X10^3/ul (0.83-4.51); Mean Corp Hgb Conc 33.6 g/dL (32-36); Mean Corpuscular Hgb 30.3 pg (27.0-32.0); Mean Corpuscular Volume 90.2 fL (80-94); Mean Platelet Vol. 11.6 fl (6.2-12.0); Monocyte# 0.56 X10^3/uL; Monocyte% 7.8 % (0-10); NRBC Flagged by Analyzer 0 % (0-5); Neutrophil % 69.6 % (47-70); Platelet Count 242 K/mm3 (150-450); RBC Distribution Width CV 13.4 % (11.6-14.6); RBC Distribution Width SD 44.5 fl (35.1-43.9); Red Blood Count 4.79 M/mm3 (4.6-6.2); White Blood Count 7.2 K/mm3 (4.4-11.0)
[2020-12-16 17:27] LABS: Anion Gap 6 (5-15); BUN 13 mg/dL (7-18); BUN/Creat Ratio 10.8 RATIO (10-20); Calcium,Total 9.2 mg/dL (8.5-10.1); Chloride 111 mmol/L (98-107); EST Glomerular Filtration Rate 65 mL/min (>60); Est Glom Filt Rate - Afr Amer 79 mL/min (>60); Estimated Creatinine Clearance 73.26 ml/min; Glucose 113 mg/dL (74-106); Potassium 3.6 mmol/L (3.5-5.1); Sodium Level 143 mmol/L (136-145)
--- NOTE | 2020-12-16 17:45 | PCM.HP.STD ---
HPI - General HPI Narrative ZANE YEPEZ, is a 65 M with a PMh as outlined who presents via the ED on 12/16/2020 with a complaint of chest pain which started when he was at work on joon day of admission. Pain was in hte left side of his chest, with associated tingling in his left arm. He had associated mild shortness of breath. Review of systems was otherwise negative. He has not had such chest pain before and has never had any work-up for chest pain. Vitals were stable in the ED and CBC was unremarkable. Chemistry was only significant for glucose of 113. Initial troponin was negative. He has been admitted to be managed for chest pain rule out ACS. [facility] Medical History Heavy alcohol use Hepatitis C Home Medications albuterol sulfate 2 puff INHALATION Q6H PRN PRN 12/02/13 [History Last Taken 10/27/18] pantoprazole 40 mg PO DAILY 12/02/13 [History Last Taken 10/27/18] amlodipine 5 mg PO DAILY 12/27/18 [History Last Taken Unknown] lisinopril 20 mg PO DAILY 09/04/19 [History Last Taken Unknown] gabapentin 600 mg tablet 1 tablet PO DAILY 01/12/20 [History Last Taken Unknown] bupropion HCl 300 mg PO DAILY 12/16/20 [History Last Taken Unknown] Allergy/AdvReac Type Severity Reaction Status Date / Time codeine Allergy Other Verified 12/16/20 16:43 propoxyphene HCl Allergy Other Verified 12/16/20 16:43 [From Darvon] propoxyphene napsylate Allergy Other Verified 12/16/20 16:43 [From Darvocet-N 100] Surgical History Chronic right shoulder pain H/O arthroscopy of left knee H/O right knee surgery S/P hernia repair Social History Smoking Status: Current every day smoker ROS Constitutional Constitutional: Denies anorexia, change in weight, chills, fatigue, fever(s), malaise or weakness Eyes Eyes: Denies change in vision or eye pain ENT HEENT: Denies dysphagia, hearing loss or nasal congestion Cardiovascular Cardiovascular: Reports chest pain; Denies dyspnea on exertion, edema, lightheadedness, orthopnea, palpitations, paroxysmal nocturnal dyspnea or rapid heart rate Respiratory/Chest Respiratory/Chest: Denies cough, dyspnea, excessive phlegm production, hemoptysis, productive cough, shortness of breath at rest or shortness of breath with exertion Gastrointestinal Gastrointestinal: Denies abdominal pain, coffee ground emesis, diarrhea, dyspepsia or hematochezia Genitourinary Genitourinary: Denies burning urination, difficulty urinating or urinary frequency Musculoskeletal Musculoskeletal: Denies arthralgias, back pain or joint pain Neurologic Neurologic: Denies confusion, dizziness, focal weakness, seizure-like activity, seizures or syncope Psychiatric Psychiatric: Denies anxiety or depression Hematologic/Lymphatic Hematologic/Lymphatic: Denies anemia Allergic/Immunologic Allergic/Immunologic: Denies asthma Vital Signs Vital Signs Vital Signs: 12/16/20 16:40 12/16/20 16:41 Temperature 98 F Temperature Source Oral Pulse Rate 81 Respiratory Rate 18 Blood Pressure 158/91 H Blood Pressure Mean 113 Pulse Ox 99 Oxygen Delivery Method Room Air Physical Exam Const alert, oriented x3 and no apparent distress General Appearance: cooperative HEENT normocephalic, head/scalp atraumatic, hearing grossly normal bilaterally and moist oral mucous membranes Eyes PERRL, EOMs intact bilaterally and conjunctivae normal Neck no lymphadenopathy, supple and no JVD Resp normal respiratory effort, no retractions, no use of accessory muscles and clear to auscultation bilaterally Cardio regular rate, regular rhythm, S1 normal heart sound, S2 normal heart sound and no murmurs GI normal to inspection, nondistended, normoactive bowel sounds, soft to palpation, non-tender and non-distended Extremity normal to inspection, full ROM and no clubbing, cyanosis or edema Peripheral Pulses: Yes pulses 2+ throughout Skin no rashes or lesions noted Neuro oriented x3 Sensorium / Orientation: awake and alert Psych affect normal Lab / Micro Data Result Diagrams: 12/16/20 16:50 12/16/20 16:50 Labs: Laboratory Results - last 24 hr 12/16/20 12/16/20 16:50 16:50 WBC 7.2 RBC 4.79 Hgb 14.5 Hct 43.2 MCV 90.2 MCH 30.3 MCHC 33.6 RDW Std Deviation 44.5 H RDW Coeff of [place] 13.4 Plt Count 242 MPV 11.6 Immature Gran % (Auto) 0.100 Neut % (Auto) 69.6 Lymph % (Auto) 20.0 [place] % (Auto) 7.8 Eos % (Auto) 1.7 Baso % (Auto) 0.8 Absolute Neuts (auto) 5.0 Absolute Lymphs (auto) 1.44 Nucleated RBC % 0 Sodium 143 Potassium 3.6 Chloride 111 H Carbon Dioxide 26.0 Anion Gap 6 BUN 13 Creatinine 1.20 Estim Creat Clear Calc 73.26 Est GFR (MDRD) Af Amer 79 Est GFR (MDRD) Non-Af 65 BUN/Creatinine Ratio 10.8 Glucose 113 H Calcium 9.2 Troponin I < 0.015 Radiology Impression Chest X-Ray 12/16/20 16:50 IMPRESSION: No radiographic evidence of acute cardiopulmonary disease. at 1721 Reported and signed by: Pilo Francis MD Electronically Signed: Pilo Francis MD at 17:19 EDT Tel , Service support , Assessment & Plan Assessment/Plan (1) Chest pain: PLAN: #Chest pain to r/o ACS Admits to PCU with telemetry Initial troponin is negative. Cycle troponins. Sublingual nitroglycerin as needed. P.o. aspirin 81 mg daily. For stress test tomorrow if troponins are negative. #Hypertension: On lisinopril. Also on amlodipine. Will continue. #GERD: On PPI #Depression: Bupropion DVT prophylaxis: Lovenox Visit Charges OBSV E&M: [id number] Initial observation care L2
--- NOTE | 2020-12-16 17:51 | NURSING ---
TISHU OBS STEVEN SOLORZANO
--- NOTE | 2020-12-16 18:09 | NURSING ---
PCU OBS RASHAD HARRIS
--- NOTE | 2020-12-16 18:46 | EKG12_ITS ---
Test Reason : CP ADMIN Blood Pressure : / mmHG Vent. Rate : 069 BPM Atrial Rate : 069 BPM P-R Int : 176 ms QRS Dur : 098 ms QT Int : 410 ms P-R-T Axes : 055 072 060 degrees QTc Int : 439 ms Normal sinus rhythm Normal ECG When compared with ECG of 16-DEC-2020 16:44, MANUAL COMPARISON REQUIRED, DATA IS UNCONFIRMED Confirmed by TATI ZURITA, DANIEL ([id number]), it risk advisor ANUPAM PEÑA ([id number]) on 12/21/2020 10:23:28 A M Referred By: STEVEN Confirmed By:ANDRES DUFFY MD
--- NOTE | 2020-12-16 23:39 | NURSING ---
pt c/o back pain, unable to take ordered Tylenol d/t Hep C. Doctor gave new order for Oxyir, has hx of allergy to many pain meds but patient states he has had this med before without any side effects. Relayed information to pharmacy.
[2020-12-16] MEDS: oxyCODONE 5 MG Tablet PO (23:46)
[2020-12-17 00:45] VITALS: PULSE 80
[2020-12-17 04:15] LABS: Absolute Lymphocyte Count 1.75 X10^3/uL (0.83-4.51); Absolute Neutrophil Count 3.2 X10^3/uL (2.0-7.7); Basophil# 0.04 X10^3/uL; Basophil% 0.7 % (0-1); Eosinophil# 0.31 X10^3/uL; Eosinophils% 5.4 % (0-5); Hematocrit 41.8 % (40-54); Hemoglobin 13.7 g/dL (13.0-16.5); Lymphocyte # 1.75 X10^3/ul (0.83-4.51); Lymphocyte % 30.3 % (19-41); Mean Corp Hgb Conc 32.8 g/dL (32-36); Mean Corpuscular Hgb 30.2 pg (27.0-32.0); Mean Corpuscular Volume 92.3 fL (80-94); Mean Platelet Vol. 11.3 fl (6.2-12.0); Monocyte# 0.45 X10^3/uL; Monocyte% 7.8 % (0-10); NRBC Flagged by Analyzer 0 % (0-5); Neutrophil % 55.5 % (47-70); Platelet Count 198 K/mm3 (150-450); RBC Distribution Width CV 13.5 % (11.6-14.6); RBC Distribution Width SD 45.8 fl (35.1-43.9); Red Blood Count 4.53 M/mm3 (4.6-6.2); White Blood Count 5.8 K/mm3 (4.4-11.0)
[2020-12-17 04:36] LABS: Anion Gap 5 (5-15); BUN 19 mg/dL (7-18); BUN/Creat Ratio 15.4 RATIO (10-20); Calcium,Total 8.6 mg/dL (8.5-10.1); Chloride 112 mmol/L (98-107); Creatinine, Serum 1.23 mg/dL (0.70-1.30); EST Glomerular Filtration Rate 63 mL/min (>60); Est Glom Filt Rate - Afr Amer 76 mL/min (>60); Estimated Creatinine Clearance 71.47 ml/min; Glucose 98 mg/dL (74-106); Potassium 3.9 mmol/L (3.5-5.1); Sodium Level 143 mmol/L (136-145)
[2020-12-17 05:30] VITALS: BP 131/67; PULSE 71; RESP 16; TEMP 36.8; O2SAT 99
[2020-12-17 06:00] VITALS: PULSE 69
[2020-12-17 07:00] VITALS: PULSE 65
[2020-12-17 12:44] VITALS: BP 137/80; PULSE 66; RESP 18; TEMP 36.2; O2SAT 99
--- NOTE | 2020-12-17 12:45 | NURSING ---
pt off floor for testing, unable complete tele strip, vitals late per [facility].
--- NOTE | 2020-12-17 14:39 | STRESSREP_ITS ---
Stress Test Report Date: 12/17/2020 Procedure: Exercise tolerance test/imaging study Indications: Chest pain Consent: Per the patient Procedure: The patient exercised on a Seferino protocol for 4 minutes and 58 seconds achieving a peak heart rate of 126 bpm (80% predicted maximal heart rate) with a peak blood pressure 190/70 mmHg and a peak MET capacity of 6.9 METs. The baseline ECG demonstrated normal sinus rhythm, poor R wave progression in the anterior leads. The peak exercise ECG demonstrated no significant ischemic changes. EKG during recovery revealed no significant ischemic changes [There were no cardiac dysrhythmias pretest, during exercise, or recovery]. The functional capacity was considered normal for age. There was [no complaint of chest discomfort during exercise or recovery]. The examination was discontinued secondary to dyspnea. Impression: 1. Sensitivity of the test is decreased as patient attained only 80% of maximal age-predicted heart rate 2. Stress test is negative for exercise-induced EKG changes of ischemia 3. The test test is negative for exercise-induced chest pain 4. Functional capacity is normal for age 5. Nuclear images pending Myocardial perfusion imaging study: Technique: The patient was injected with 15 mCi of technetium 99m Cardiolite and subsequently rest SPECT Cardiolite nuclear imaging was obtained in the horizontal long, vertical long, and short axis views. The patient exercised on a Seferino protocol. Please see above for details. The patient was injected with 44.4 mCi of technetium 99m Cardiolite and subsequently stress SPECT Cardiolite nuclear imaging was obtained in the horizontal long, vertical long, and short axis views. A gated Cardiolite study at peak stress was obtained. Interpretation: Rest and stress SPECT Cardiolite nuclear imaging status post realignment, normalization, and attenuation correction, demonstrates overall normal myocardial radioisotope uptake. The gated Cardiolite study demonstrates no significant regional wall motion abnormalities. The reported LVEF is 65%. Impression: 1. There is no evidence of significant ischemia or infarction. 2. The gated Cardiolite study reports an LVEF of 65%. This note was generated with [employer] software. It may contain incorrect words, spelling, and punctuation that were not noted in checking the note before signing.
[2020-12-17] MEDS: oxyCODONE 5 MG Tablet PO (15:16)
--- NOTE | 2020-12-17 15:18 | DS.PCM_ITS ---
Providers Date of Admission: 12/16/20 Primary Care Physician: Dr. Deo Ahn MD Reason For Visit: CHEST PAIN Diagnosis Discharge Diagnosis (1) Chest pain: Status: Acute Code(s): R07.9 - Chest pain, unspecified Medications at Discharge Home Medications albuterol sulfate 2 puff INHALATION Q6H PRN PRN 12/02/13 pantoprazole 40 mg PO DAILY 12/02/13 amlodipine 5 mg PO DAILY 12/27/18 lisinopril 20 mg PO DAILY 09/04/19 gabapentin 600 mg tablet 1 tablet PO TID 01/12/20 ascorbic acid (vitamin C) 500 mg PO DAILY 12/16/20 bupropion HCl 300 mg PO DAILY 12/16/20 cholecalciferol (vitamin D3) 50 mcg PO DAILY 12/16/20 docusate sodium 100 mg PO DAILY 12/16/20 flaxseed 1,000 mg PO DAILY 12/16/20 metoprolol succinate 50 mg PO DAILY 12/16/20 zinc 50 mg PO DAILY 12/16/20 Hospital Course Operations None Procedures Stress test (Stress test was negative for stress-induced ischemia) Summary of Care Provided Minutes Spent on Discharge: 35 Hospital Course: Patient is a 65-year-old gentleman admitted with chest pain 1. Chest pain patient was placed on a monitored bed DE was ruled out with serial cardiac enzymes subsequently underwent a nuclear stress test which was negative for stress-induced ischemia. Patient was discharged and instructed to follow-up with PCP for subsequent care 2. Hypertension - Blood pressure controlled, home medications continued with dose adjustment as needed 3. GERD - On PPI 4. Depression - Bupropion 5. Tobacco dependence - Counseled on cessation, offered nicotine patch for tobacco cravings 6. History of chronic alcohol use ?Counseled on cessation 7. DVT prophylaxis - On enoxaparin Physical Exam Narrative GENERAL: cooperative HEENT: Atraumatic; EYES; Anicteric, Normal Conjunctiva NECK; supple, normal thyroid, RESPIRATORY: Diminished to auscultation CARDIOVASCULAR: Regular S1 S2, GI: soft, normoactive bowel sounds, : No Renal angle tenderness; EXTREMITIES: No edema, no clubbing, MUSCULOSKELETAL: no muscle waisting NEURO: Awake; no lateralizing signs. SKIN: No Rash PSYCH; Flat affect ABG / Lab / Microbiology Data Result Diagrams: 12/17/20 04:00 12/17/20 04:00 Laboratory: Laboratory Results - last 24 hr 12/16/20 12/16/20 12/16/20 16:50 16:50 21:50 WBC 7.2 RBC 4.79 Hgb 14.5 Hct 43.2 MCV 90.2 MCH 30.3 MCHC 33.6 RDW Std Deviation 44.5 H RDW Coeff of [place] 13.4 Plt Count 242 MPV 11.6 Immature Gran % (Auto) 0.100 Neut % (Auto) 69.6 Lymph % (Auto) 20.0 [place] % (Auto) 7.8 Eos % (Auto) 1.7 Baso % (Auto) 0.8 Absolute Neuts (auto) 5.0 Absolute Lymphs (auto) 1.44 Nucleated RBC % 0 Sodium 143 Potassium 3.6 Chloride 111 H Carbon Dioxide 26.0 Anion Gap 6 BUN 13 Creatinine 1.20 Estim Creat Clear Calc 73.26 Est GFR (MDRD) Af Amer 79 Est GFR (MDRD) Non-Af 65 BUN/Creatinine Ratio 10.8 Glucose 113 H Calcium 9.2 Troponin I < 0.015 < 0.015 12/17/20 12/17/20 12/17/20 00:00 04:00 04:00 WBC 5.8 RBC 4.53 L Hgb 13.7 Hct 41.8 MCV 92.3 MCH 30.2 MCHC 32.8 RDW Std Deviation 45.8 H RDW Coeff of [place] 13.5 Plt Count 198 MPV 11.3 Immature Gran % (Auto) 0.300 Neut % (Auto) 55.5 Lymph % (Auto) 30.3 [place] % (Auto) 7.8 Eos % (Auto) 5.4 H Baso % (Auto) 0.7 Absolute Neuts (auto) 3.2 Absolute Lymphs (auto) 1.75 Nucleated RBC % 0 Sodium 143 Potassium 3.9 Chloride 112 H Carbon Dioxide 26.0 Anion Gap 5 BUN 19 H Creatinine 1.23 Estim Creat Clear Calc 71.47 Est GFR (MDRD) Af Amer 76 Est GFR (MDRD) Non-Af 63 BUN/Creatinine Ratio 15.4 Glucose 98 Calcium 8.6 Troponin I < 0.015 < 0.015 12/17/20 07:35 WBC RBC Hgb Hct MCV MCH MCHC RDW Std Deviation RDW Coeff of [place] Plt Count MPV Immature Gran % (Auto) Neut % (Auto) Lymph % (Auto) [place] % (Auto) Eos % (Auto) Baso % (Auto) Absolute Neuts (auto) Absolute Lymphs (auto) Nucleated RBC % Sodium Potassium Chloride Carbon Dioxide Anion Gap BUN Creatinine Estim Creat Clear Calc Est GFR (MDRD) Af Amer Est GFR (MDRD) Non-Af BUN/Creatinine Ratio Glucose Calcium Troponin I < 0.015 Radiography Diagnostic Testing: Radiology Impression Chest X-Ray 12/16/20 16:50 IMPRESSION: No radiographic evidence of acute cardiopulmonary disease. at 1721 Reported and signed by: Pilo Francis MD Electronically Signed: Pilo Francis MD at 17:19 EDT Tel , Service support , D/C Instructions Discharge Diet: No restrictions Discharge Activity: Return to Normal Activity Call your doctor if you observe: Fever of 101 or Higher, Shortness of breath, Fainting spells and Chest pain Meaningful Use Info Meaningful Use Diagnoses (Choose all that apply): None applicable Discharge Plan Admission Admit Date/Time: 12/16/20 19:14 Primary Reason for Your Visit: CHEST PAIN Attending Provider: Roque Hathaway Primary Care Provider: Deo Ahn Instructions Patient Instructions: ED Chest Pain, Noncardiac Discharge Orders/Prescriptions Prescriptions: Continued gabapentin 600 mg tablet 1 tablet PO TID RF: 0 pantoprazole 40 MG tablet 40 mg PO DAILY RF: 0 albuterol sulfate 1 PUFF inhaler 2 puff INHALATION Q6H PRN PRN (Reason: Sob &/Or Wheezing) RF: 0 amlodipine 5 MG tablet 5 mg PO DAILY RF: 0 lisinopril 20 MG tablet 20 mg PO DAILY RF: 0 bupropion HCl 300 mg tablet extended release 24 hr 300 mg PO DAILY RF: 0 metoprolol succinate 50 mg tablet extended release 24 hr 50 mg PO DAILY RF: 0 ascorbic acid (vitamin C) 500 mg Tablet 500 mg PO DAILY RF: 0 docusate sodium 100 mg capsule 100 mg PO DAILY RF: 0 zinc 50 mg Tablet 50 mg PO DAILY RF: 0 cholecalciferol (vitamin D3) 50 mcg (2,000 unit) Capsule 50 mcg PO DAILY RF: 0 flaxseed 1,000 mg Capsule 1,000 mg PO DAILY RF: 0 Referrals / Follow Up: Deo Ahn MD [Primary Care Provider] - In 1 Week Disposition Disposition (needs filled in before D/C Order can be placed): Home, self care Visit Charges OBSV E&M: 05812 Observation care discharge
--- NOTE | 2020-12-17 15:27 | PCM.DC ---
Discharge Instructions Diet Discharge Diet: No restrictions Activity Discharge Activity: Return to Normal Activity Dressing / Incision Call your doctor if you observe: Fever of 101 or Higher, Shortness of breath, Fainting spells and Chest pain Follow Up Care Test Results: Test results from this visit will be discussed in further detail at your follow-up appointment, if applicable. Discharge Plan Admission Admit Date/Time: 12/16/20 19:14 Primary Reason for Your Visit: CHEST PAIN Attending Provider: Roque Hathaway Primary Care Provider: Deo Ahn Instructions Patient Instructions: ED Chest Pain, Noncardiac Discharge Orders/Prescriptions Prescriptions: Continued gabapentin 600 mg tablet 1 tablet PO TID RF: 0 pantoprazole 40 MG tablet 40 mg PO DAILY RF: 0 albuterol sulfate 1 PUFF inhaler 2 puff INHALATION Q6H PRN PRN (Reason: Sob &/Or Wheezing) RF: 0 amlodipine 5 MG tablet 5 mg PO DAILY RF: 0 lisinopril 20 MG tablet 20 mg PO DAILY RF: 0 bupropion HCl 300 mg tablet extended release 24 hr 300 mg PO DAILY RF: 0 metoprolol succinate 50 mg tablet extended release 24 hr 50 mg PO DAILY RF: 0 ascorbic acid (vitamin C) 500 mg Tablet 500 mg PO DAILY RF: 0 docusate sodium 100 mg capsule 100 mg PO DAILY RF: 0 zinc 50 mg Tablet 50 mg PO DAILY RF: 0 cholecalciferol (vitamin D3) 50 mcg (2,000 unit) Capsule 50 mcg PO DAILY RF: 0 flaxseed 1,000 mg Capsule 1,000 mg PO DAILY RF: 0 Referrals / Follow Up: Deo Ahn MD [Primary Care Provider] - In 1 Week Disposition Disposition (needs filled in before D/C Order can be placed): Home, self care
--- NOTE | 2020-12-17 15:30 | PHA.DC.MR ---
Pharmacy Service has performed discharge medication reconciliation for this patient. The patient's discharge medication list was reviewed for discrepancies and discrepancies were resolved. Home Medications albuterol sulfate 2 puff INHALATION Q6H PRN PRN 12/02/13 pantoprazole 40 mg PO DAILY 12/02/13 amlodipine 5 mg PO DAILY 12/27/18 lisinopril 20 mg PO DAILY 09/04/19 gabapentin 600 mg tablet 1 tablet PO TID 01/12/20 ascorbic acid (vitamin C) 500 mg PO DAILY 12/16/20 bupropion HCl 300 mg PO DAILY 12/16/20 cholecalciferol (vitamin D3) 50 mcg PO DAILY 12/16/20 docusate sodium 100 mg PO DAILY 12/16/20 flaxseed 1,000 mg PO DAILY 12/16/20 metoprolol succinate 50 mg PO DAILY 12/16/20 zinc 50 mg PO DAILY 12/16/20
[2020-12-17 15:36] VITALS: BP 137/80; PULSE 66; RESP 18; TEMP 36.2; O2SAT 99
== END 2020-12-17 15:20 | disposition home or self-care (01) ==
LOC: ED 17:52 → PCU 19:42
PROVIDERS: Admitting Provider Student in an Organized Health Care Education/Training Program; Emergency Provider Emergency Medicine; PCP Family Medicine; Visit Provider Internal Medicine
DX: R07.89 Other chest pain (principal); R06.02 Shortness of breath; M79.602 Pain in left arm; R20.2 Paresthesia of skin; I10 Essential (primary) hypertension; F17.200 Nicotine dependence, unspecified, uncomplicated; J44.9 Chronic obstructive pulmonary disease, unspecified; K21.9 Gastro-esophageal reflux disease without esophagitis; F32.9 Major depressive disorder, single episode, unspecified; G89.29 Other chronic pain; Z79.899 Other long term (current) drug therapy; Z86.19 Personal history of other infectious and parasitic diseases
CPT/HCPCS: 36415; 71045; 78452; 80048; 84484; 85025; 93005; 93017; 96374; 96375; 99218; 99285; A9500; A4216; G0378; J2405

== ENCOUNTER 2021-02-10 17:56 | Emergency (ER) | payer MEDICARE, MEDICAID, SELFPAY ==
[2020-12-16 18:48] VITALS: BMI 32.5
[2021-02-10 17:57] VITALS: BP 147/89; PULSE 88; RESP 16; TEMP 36.2; O2SAT 97; BMI 33.0
--- NOTE | 2021-02-10 19:26 | EDS_ITS ---
HPI History of Present Illness Chief Complaint: Back Informant: patient Onset/Context/Timing Onset: Today and Weeks Chronic pain exacerbated by: Getting up and down today. Getting out of his car. Injury: bending and repetitive motion Timing: Continuous Quality: Sharp Location: Lumbar, Buttock and Right Leg Current Severity: Moderate Maximum Severity: Severe Worsened by: improves with Movement, Bending and Lifting Relieved by: Remaining Still Associated Symptoms Associated Symptoms: Radiation to Right Leg; Negative for Fever, Abdominal Pain, Dysuria, Unable to Ambulate and Unable to Transfer Narrative Narrative: 65-year-old male history of spinal stenosis. States he has chronic back pain is never had back surgery. Denies any recent falls or trauma. States been bothering him for the last several weeks. Today said he was getting in and out of his car quite a bit and exacerbated his pain. He denies any fever. He denies any bowel or bladder incontinence. He denies any leg weakness. This is primarily over his right lower lateral back and radiates into his right buttock and hamstring. He has had similar pain to this in the past. He had an MRI in the past but not recently. He denies ever having any back surgery. Prior similar symptoms: Yes Recent Illness/Hospitalization: No PFSH PFSH Medical History Cirrhosis Heavy alcohol use Hepatitis C Hypertension Smoker Home Medications albuterol sulfate 2 puff INHALATION Q6H PRN PRN 12/02/13 [History Last Taken 12/14/20] pantoprazole 40 mg PO DAILY 12/02/13 [History Last Taken 12/15/20] amlodipine 5 mg PO DAILY 12/27/18 [History Last Taken 12/15/20] lisinopril 20 mg PO DAILY 09/04/19 [History Last Taken 12/15/20] gabapentin 600 mg tablet 1 tablet PO TID 01/12/20 [History Last Taken 12/15/20] ascorbic acid (vitamin C) 500 mg PO DAILY 12/16/20 [History Last Taken 12/15/20] bupropion HCl 300 mg PO DAILY 12/16/20 [History Last Taken 12/15/20] cholecalciferol (vitamin D3) 50 mcg PO DAILY 12/16/20 [History Last Taken 12/15/20] docusate sodium 100 mg PO DAILY 12/16/20 [History Last Taken Unknown] flaxseed 1,000 mg PO DAILY 12/16/20 [History Last Taken 12/15/20] metoprolol succinate 50 mg PO DAILY 12/16/20 [History Last Taken Unknown] zinc 50 mg PO DAILY 12/16/20 [History Last Taken 12/15/20] hydrocodone-acetaminophen 1 tab PO Q4H PRN 5 Days #14 tab 02/10/21 [Rx Last Taken Unknown] Allergy/AdvReac Type Severity Reaction Status Date / Time codeine Allergy Other Verified 02/10/21 17:56 propoxyphene HCl Allergy Other Verified 02/10/21 17:56 [From Darvon] propoxyphene napsylate Allergy Other Verified 02/10/21 17:56 [From Darvocet-N 100] Surgical History Chronic right shoulder pain H/O arthroscopy of left knee H/O right knee surgery S/P hernia repair Social History Smoking Status: Current every day smoker tobacco type: cigarettes ROS ROS ED ROS Narrative Denies any recent illness. Review of Systems ROS Unobtainable: Denies due to encephalopathy Constitutional Constitutional ED: Denies chills or fever(s) Eyes Eyes: Denies change in vision ENT ENT ED: Denies ear pain Cardiovascular Cardiovascular: Denies chest pain Respiratory/Chest Respiratory/Chest: Denies dyspnea or sputum Gastrointestinal Gastrointestinal: Denies abdominal pain, diarrhea, nausea or vomiting Genitourinary Genitourinary ED: Denies dysuria or hematuria Musculoskeletal Musculoskeletal: Reports back pain; Denies arthralgias or myalgias Integumentary Denies rash Neurologic Neurologic: Denies headache(s) Psychiatric Psychiatric: Denies depression Endocrine Endocrinology: Denies polyuria Hematologic/Lymphatic Hematologic/Lymphatic: Denies easy bruising Allergic/Immunologic Allergic/Immunologic ED: Denies urticaria EXAM Physical Exam Narrative Exam Narrative: Six 5-year-old male complaining of back pain. Laying supine on his abdomen. Vital signs stable afebrile. Lungs are clear. Heart regular rate and rhythm no murmur. Abdomen soft nontender normal bowel sounds no peritoneal signs. Moving all 4 extremities. Neurovascularly intact. Is tenderness along his lumbar spine and paralumbar soft tissues primarily in the right and most tender over his right SI joint. He does have a positive straight leg raise on the right. No cauda equina. No saddle anesthesia. He has normal medial thigh sensation. He has normal perianal sensation. He has normal dorsi plantar flexion. Neurologically is awake and alert with no focal motor deficits. Const Vital Signs: 02/10/21 17:57 02/10/21 20:47 Temperature 97.2 F L Temperature Source Temporal Pulse Rate 88 75 Respiratory Rate 16 16 Blood Pressure 147/89 H 145/86 H Blood Pressure Mean 108 105 Pulse Ox 97 98 Oxygen Delivery Method Room Air Room Air Positive well nourished and well developed; Negative for unkempt General Appearance ED: well developed; Negative for unkempt HEENT Reports moist mucous membranes Negative for trauma or tenderness Eyes PERRL and EOMs intact bilaterally Neck no lymphadenopathy, supple and no JVD General: Negative for tenderness Resp normal respiratory effort and clear to auscultation bilaterally Effort and Inspection: Negative for pain with movement Cardio regular rate, regular rhythm, S1 normal heart sound, S2 normal heart sound and no murmurs Rate: Negative for tachycardic GI normal to inspection, nondistended, normoactive bowel sounds, soft to palpation, non-tender, non-distended and no masses Inspection: Negative for abdominal distention Palpation: Negative for tender, guarding or rebound tenderness present Back/Spine Negative for normal to inspection or no thoracic nor lumbar tenderness General Back: Negative for CVA tenderness Cervical Spine: Negative for cervical spine tenderness and Negative for paracervical muscle tenderness Thoracic Spine / Upper Back: paraspinal muscle tenderness Lumbar Spine / Lower Back: ROM limited and straight leg raise positive right; Negative for straight leg raise negative bilaterally or straight leg raise positive - left Extremity normal to inspection General Extremety ED: Negative for edema or tenderness General Extremity: Negative for edema Neuro oriented x3 and no sensory deficits noted Sensorium / Orientation: alert; Negative for confused, lethargic or stuporous Motor Exam: strength 5/5 throughout Psych mental status grossly normal Appearance: Negative for unkempt Skin no rashes or lesions noted and no wounds MDM MDM MDM Narrative Medical decision making narrative: 65-year-old male history acute on chronic back pain. Exam is consistent with acute sciatica with radiation to his right leg. He will be given IM Dilaudid with p.o. Motrin and reassessed. At this time he does not have a cauda equina. He does not need an emergent MRI or other type of imaging. There was no trauma. Repeat exam at 9:05 PM patient looks much better. He is sitting upright in bed. He is no longer supine facedown. He appears much more comfortable. And he feels comfortable being discharged home. Discharge Plan Triage Chief Complaint: Back Other Complaint: Headache ED Provider: Henry Fallon Dx/Rx/DC Orders Clinical Impression: Acute back pain with sciatica Instructions: ED Sciatica Prescriptions: New hydrocodone-acetaminophen 5-325 mg tablet 1 tab PO Q4H PRN (Reason: pain) 5 Days Qty: 14 RF: 0 No Action gabapentin 600 mg tablet 1 tablet PO TID RF: 0 pantoprazole 40 MG tablet 40 mg PO DAILY RF: 0 albuterol sulfate 1 PUFF inhaler 2 puff INHALATION Q6H PRN PRN (Reason: Sob &/Or Wheezing) RF: 0 amlodipine 5 MG tablet 5 mg PO DAILY RF: 0 lisinopril 20 MG tablet 20 mg PO DAILY RF: 0 bupropion HCl 300 mg tablet extended release 24 hr 300 mg PO DAILY RF: 0 metoprolol succinate 50 mg tablet extended release 24 hr 50 mg PO DAILY RF: 0 ascorbic acid (vitamin C) 500 mg Tablet 500 mg PO DAILY RF: 0 docusate sodium 100 mg capsule 100 mg PO DAILY RF: 0 zinc 50 mg Tablet 50 mg PO DAILY RF: 0 cholecalciferol (vitamin D3) 50 mcg (2,000 unit) Capsule 50 mcg PO DAILY RF: 0 flaxseed 1,000 mg Capsule 1,000 mg PO DAILY RF: 0 Primary Care Provider: Deo Ahn Referrals: Deo Ahn MD [Primary Care Provider] - 1 Week if not improving Activity Restrictions/Additional Instructions: Follow-up with your doctor if not improving. If you develop leg weakness, severe pain or feeling a lot worse and to be reevaluated in the emergency department. If this is not improving you may need a repeat MRI of your back. [place] for pain and Motrin to decrease pain and swelling. Motrin no more than 2 twice a day. Ice to your right sciatica. Hot shower warm bath to relax your muscles. Disposition Disposition: Home, Self Care
[2021-02-10] MEDS: Ibuprofen 600 MG Tablet PO (19:36)
[2021-02-10] MEDS: HYDROmorphone 1 MG/ML Syringe IM (19:37)
[2021-02-10 20:47] VITALS: BP 145/86; PULSE 75; RESP 16; O2SAT 98
== END 2021-02-10 21:29 | disposition home or self-care (01) ==
PROVIDERS: Emergency Provider Emergency Medicine; PCP Family Medicine
DX: M54.41 Lumbago with sciatica, right side (principal); G89.29 Other chronic pain; I10 Essential (primary) hypertension; F17.210 Nicotine dependence, cigarettes, uncomplicated
CPT/HCPCS: 96372; 99283

== ENCOUNTER 2021-04-16 17:48 | Emergency (ER) | payer MEDICARE, MEDICAID, SELFPAY ==
[2021-04-16 17:48] VITALS: BP 131/90; PULSE 100; RESP 16; TEMP 36.2; O2SAT 99; BMI 32.5
--- NOTE | 2021-04-16 18:33 | EDS_ITS ---
HPI History of Present Illness Chief Complaint: Back Informant: patient Narrative Narrative: 65-year-old male presenting to the emergency department with acute back pain. Patient states he bent over to cook pickled meat some laundry detergent and now has severe pain in his right lower back going into his right leg. He states he has had this episodically in the past. He states he used to be in pain management but it got better. No bowel or bladder dysfunction. No fevers. No IVDU. PFSH PFSH Medical History Cirrhosis Heavy alcohol use Hepatitis C Hypertension Smoker Home Medications albuterol sulfate 2 puff INHALATION Q6H PRN PRN 12/02/13 [History Last Taken 12/14/20] pantoprazole 40 mg PO DAILY 12/02/13 [History Last Taken 12/15/20] amlodipine 5 mg PO DAILY 12/27/18 [History Last Taken 12/15/20] lisinopril 20 mg PO DAILY 09/04/19 [History Last Taken 12/15/20] gabapentin 600 mg tablet 1 tablet PO TID 01/12/20 [History Last Taken 12/15/20] ascorbic acid (vitamin C) 500 mg PO DAILY 12/16/20 [History Last Taken 12/15/20] bupropion HCl 300 mg PO DAILY 12/16/20 [History Last Taken 12/15/20] cholecalciferol (vitamin D3) 50 mcg PO DAILY 12/16/20 [History Last Taken 12/15/20] docusate sodium 100 mg PO DAILY 12/16/20 [History Last Taken Unknown] flaxseed 1,000 mg PO DAILY 12/16/20 [History Last Taken 12/15/20] zinc 50 mg PO DAILY 12/16/20 [History Last Taken 12/15/20] hydrocodone-acetaminophen 1 tab PO Q4H PRN 5 Days #14 tab 02/10/21 [Rx Last Taken Unknown] diazepam 5 mg PO Q8 PRN #15 tab 04/16/21 [Rx Last Taken Unknown] hydrocodone-acetaminophen 1 tab PO Q6H PRN PRN 3 Days #12 tablet 04/16/21 [Rx Last Taken Unknown] Allergy/AdvReac Type Severity Reaction Status Date / Time codeine Allergy Other Verified 04/16/21 17:51 propoxyphene HCl Allergy Other Verified 04/16/21 17:51 [From Darvon] propoxyphene napsylate Allergy Other Verified 04/16/21 17:51 [From Darvocet-N 100] Surgical History Chronic right shoulder pain H/O arthroscopy of left knee H/O right knee surgery S/P hernia repair Social History Smoking Status: Current every day smoker tobacco type: cigarettes ROS ROS ED Constitutional Constitutional ED: Denies chills or weight loss Eyes Eyes: Denies change in vision or diplopia ENT ENT ED: Denies ear pain, rhinorrhea or sore throat Cardiovascular Cardiovascular: Denies chest pain, orthopnea, palpitations or racing heartbeat Respiratory/Chest Respiratory/Chest: Denies cough, dyspnea or orthopnea Gastrointestinal Gastrointestinal: Denies abdominal pain, diarrhea, nausea or vomiting Genitourinary Genitourinary ED: Denies dysuria, hematuria or urinary frequency Musculoskeletal Musculoskeletal: Reports back pain; Denies arthralgias or myalgias Integumentary Denies abscess or rash Neurologic Neurologic: Denies headache(s) or weakness Psychiatric Psychiatric: Denies anxiety, depression, suicidal ideation or suicidal thoughts Endocrine Endocrinology: Denies polydipsia, polyphagia or polyuria Allergic/Immunologic Allergic/Immunologic ED: Denies mouth swelling, tongue swelling or urticaria EXAM Physical Exam Const Vital Signs: 04/16/21 17:48 Temperature 97.2 F L Temperature Source Temporal Pulse Rate 100 Respiratory Rate 16 Blood Pressure 131/90 H Blood Pressure Mean 103 Pulse Ox 99 Oxygen Delivery Method Room Air Positive well nourished, well developed and obese General Appearance ED: well developed Nutritional Appearance: obese HEENT Reports normocephalic, head/scalp atraumatic and moist mucous membranes Eyes PERRL and EOMs intact bilaterally Neck no lymphadenopathy, supple and no JVD Resp normal respiratory effort and clear to auscultation bilaterally Cardio regular rate, regular rhythm and no murmurs GI normal to inspection, nondistended, normoactive bowel sounds and non-tender Palpation: soft Back/Spine no CVA tenderness and normal ROM Back/Spine Narrative: Patient has tenderness palpation over the right lumbar paraspinal musculature in the right buttock. No tissue texture changes to suggest underlying infection Extremity normal to inspection General Extremety ED: Negative for edema General Extremity: Negative for edema Neuro oriented x3 and CN's II-XII intact bilaterally Neuro Narrative: No obvious muscle weakness or sensory loss. Sensorium / Orientation: alert Motor Exam: strength 5/5 throughout Deep Tendon Reflexes: Rt Patellar (L4): 2+, Lt Patellar (L4): 2+, Rt Ankle (S1): 2+ and Lt Ankle (S1): 2+ Deep Tendon Reflexes Back: Rt Patellar (L4): 2+, Lt Patellar (L4): 2+, Rt Ankle (S1): 2+ and Lt Ankle (S1): 2+ Psych mental status grossly normal Mood & Affect: Negative for depressed or tearful Skin no rashes or lesions noted and no wounds MDM MDM MDM Narrative Medical decision making narrative: Patient was given a dose of Valium, Dilaudid, and Toradol. Patient will be discharged home with Valium and [place]. Would recommend following up with primary care and he may benefit from physical therapy. Discharge Plan Triage Chief Complaint: Back ED Provider: Dexter Guadarrama Dx/Rx/DC Orders Clinical Impression: Lumbar paraspinal muscle spasm, Sciatica Instructions: ED Back Spasm, No Trauma Prescriptions: New hydrocodone-acetaminophen [hydrocodone-acetaminophen] 1 TABLET tablet 1 tab PO Q6H PRN PRN (Reason: Pain) 3 Days Qty: 12 RF: 0 diazepam [diazepam] 5 MG tablet 5 mg PO Q8 PRN (Reason: Muscle Spasm) Qty: 15 RF: 0 No Action gabapentin 600 mg tablet 1 tablet PO TID RF: 0 pantoprazole 40 MG tablet 40 mg PO DAILY RF: 0 albuterol sulfate 1 PUFF inhaler 2 puff INHALATION Q6H PRN PRN (Reason: Sob &/Or Wheezing) RF: 0 amlodipine 5 MG tablet 5 mg PO DAILY RF: 0 lisinopril 20 MG tablet 20 mg PO DAILY RF: 0 bupropion HCl 300 mg tablet extended release 24 hr 300 mg PO DAILY RF: 0 ascorbic acid (vitamin C) 500 mg Tablet 500 mg PO DAILY RF: 0 docusate sodium 100 mg capsule 100 mg PO DAILY RF: 0 zinc 50 mg Tablet 50 mg PO DAILY RF: 0 cholecalciferol (vitamin D3) 50 mcg (2,000 unit) Capsule 50 mcg PO DAILY RF: 0 flaxseed 1,000 mg Capsule 1,000 mg PO DAILY RF: 0 hydrocodone-acetaminophen 5-325 mg tablet 1 tab PO Q4H PRN (Reason: pain) 5 Days Qty: 14 RF: 0 Primary Care Provider: Deo Ahn Referrals: Deo Ahn MD [Primary Care Provider] - 1 Week Disposition Disposition: Home, Self Care
[2021-04-16] MEDS: Ketorolac 60 MG/2 ML Vial IM (18:45)
[2021-04-16] MEDS: HYDROmorphone 1 MG/ML Syringe IM (18:45)
[2021-04-16] MEDS: diazePAM 5 MG Tablet PO (18:45)
[2021-04-16 19:29] VITALS: RESP 16
== END 2021-04-16 19:30 | disposition home or self-care (01) ==
PROVIDERS: Emergency Provider Emergency Medicine; PCP Family Medicine
DX: M62.830 Muscle spasm of back (principal); M54.41 Lumbago with sciatica, right side; I10 Essential (primary) hypertension; F17.210 Nicotine dependence, cigarettes, uncomplicated; E66.9 Obesity, unspecified; Z68.32 Body mass index [BMI] 32.0-32.9, adult; Z79.899 Other long term (current) drug therapy
CPT/HCPCS: 96372; 99283

== ENCOUNTER 2021-04-22 13:21 | Emergency (ER) | payer MEDICARE, MEDICAID, SELFPAY ==
[2021-04-22 13:22] VITALS: BP 140/84; PULSE 102; RESP 18; TEMP 37.1; O2SAT 100; BMI 32.3
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
[2021-04-22] MEDS: Ketorolac 60 MG/2 ML Vial IM (17:04)
[2021-04-22] MEDS: Orphenadrine 60 MG/2 ML Ampul IM (17:04)
[2021-04-22] MEDS: HYDROmorphone 1 MG/ML Syringe IM (17:05)
[2021-04-22 17:27] VITALS: BP 134/89
== END 2021-04-22 17:29 | disposition home or self-care (01) ==
PROVIDERS: Emergency Provider Emergency Medicine; PCP Family Medicine
DX: S39.012A Strain of muscle, fascia and tendon of lower back, initial encounter (principal); S16.1XXA Strain of muscle, fascia and tendon at neck level, initial encounter; V89.2XXA Person injured in unspecified motor-vehicle accident, traffic, initial encounter; Y93.89 Activity, other specified; Y92.9 Unspecified place or not applicable; Y99.9 Unspecified external cause status; I10 Essential (primary) hypertension; F17.210 Nicotine dependence, cigarettes, uncomplicated; Z79.899 Other long term (current) drug therapy
CPT/HCPCS: 72040; 72100; 96372; 99282

== ENCOUNTER 2021-05-30 16:31 | Emergency (ER) | payer MEDICARE, MEDICAID, SELFPAY ==
[2021-05-30] VITALS (8 sets, daily range): BP systolic 114–144; BP diastolic 71–81; PULSE 74–109; RESP 15–20; TEMP 36.2–37.2; O2SAT 95–100; BMI 32.1
--- NOTE | 2021-05-30 17:55 | EKG12_ITS ---
Test Reason : CP Blood Pressure : / mmHG Vent. Rate : 103 BPM Atrial Rate : 103 BPM P-R Int : 144 ms QRS Dur : 084 ms QT Int : 376 ms P-R-T Axes : 071 059 058 degrees QTc Int : 492 ms Sinus tachycardia Low voltage QRS (Limb Leads) Poor R wave progression Nonspecific T wave abnormality Confirmed by SONIA ZURITA, JESI ([id number]), newspaper managing editor ANUPAM PEÑA ([id number]) on 06/01/2021 8:47:54 AM Referred By: LYNDA/JOE Confirmed By:JESI SCOTT MD
[2021-05-30] MEDS: Morphine 4 MG/ML Syringe IV (18:38)
[2021-05-30] MEDS: Ondansetron 4 MG/2 ML Vial IV (18:44)
--- NOTE | 2021-05-30 18:46 | RAD_ITS ---
STUDY: X-RAY CHEST REASON FOR EXAM: Male, 66 years old. Cough, fever, shaking chills, shortness of breath TECHNIQUE: Single AP portable view of the chest. COMPARISON: 12/16/2020, 08/13/2017. FINDINGS: Stable calcified granuloma on the left. The lungs are clear and expanded. There is no demonstrated pleural abnormality. Calcified left hilar lymph nodes. Normal size heart. Normal visualized pulmonary arteries. Normal visualized aortic arch and descending thoracic aorta. Normal visualized thoracic spine. Normal visualized ribs, clavicles, and shoulders. There is no demonstrated abnormality of the visualized soft tissue structures of the upper abdomen. RAD/Chest 1 View (Portable) IMPRESSION: No acute findings. Old granulomatous disease. Electronically Signed: Veronica Torres MD at 19:38 EDT Tel , Service support ,
[2021-05-30 18:47] LABS: ALB/GLOB Ratio 0.9 RATIO (0.9-2.4); AST(SGOT) 34 U/L (15-37); Alanine Aminotransfer ALT/SGPT 37 U/L (16-61); Albumin, Serum 3.3 g/dL (3.2-5.0); Alkaline Phosphatase 119 U/L (45-117); Anion Gap 5 (5-15); BUN 14 mg/dL (7-18); BUN/Creat Ratio 10.5 RATIO (10-20); Calcium,Total 8.8 mg/dL (8.5-10.1); Chloride 114 mmol/L (98-107); Creatinine, Serum 1.33 mg/dL (0.70-1.30); EST Glomerular Filtration Rate 58 mL/min (>60); Est Glom Filt Rate - Afr Amer 70 mL/min (>60); Estimated Creatinine Clearance 65.24 ml/min; Globulin 3.8 g/dL (2.2-4.2); Glucose 113 mg/dL (74-106); Potassium 3.8 mmol/L (3.5-5.1); Protein, Total 7.1 g/dL (6.4-8.2); Sodium Level 146 mmol/L (136-145)
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
[2021-05-30 18:56] LABS: Absolute Lymphocyte Count 0.88 X10^3/uL (0.83-4.51); Absolute Neutrophil Count 3.3 X10^3/uL (2.0-7.7); Basophil# 0.05 X10^3/uL; Eosinophil# 0.18 X10^3/uL; Eosinophils% 3.7 % (0-5); Hematocrit 42.8 % (40-54); Hemoglobin 14.2 g/dL (13.0-16.5); Lymphocyte # 0.88 X10^3/ul (0.83-4.51); Lymphocyte % 18.1 % (19-41); Mean Corp Hgb Conc 33.2 g/dL (32-36); Mean Corpuscular Hgb 30.5 pg (27.0-32.0); Mean Corpuscular Volume 91.8 fL (80-94); Mean Platelet Vol. 11.3 fl (6.2-12.0); Monocyte# 0.44 X10^3/uL; NRBC Flagged by Analyzer 0 % (0-5); Neutrophil % 67.8 % (47-70); Platelet Count 195 K/mm3 (150-450); RBC Distribution Width CV 14.1 % (11.6-14.6); RBC Distribution Width SD 47.4 fl (35.1-43.9); Red Blood Count 4.66 M/mm3 (4.6-6.2); White Blood Count 4.9 K/mm3 (4.4-11.0)
[2021-05-30 18:57] LABS: Lactic Acid 1.7 mmol/L (0.4-1.9)
[2021-05-30 19:01] LABS: Prothrombin Time (Protime)PT. 12.4 SECONDS (11.7-14.9)
[2021-05-30 19:02] LABS: Partial Thromboplast Time 26.6 Seconds (24.1-36.2)
[2021-05-30] MEDS: Ipratropium/Albuterol Sulfate 3 ML AMPUL.NEB INHALATION (19:16)
[2021-05-30] MEDS: predniSONE 20 MG Tablet 60 MG PO (19:26)
[2021-05-30] MEDS: Albuterol 2.5 MG/3 ML VIAL.NEB. INHALATION ×3 (19:32)
[2021-05-30 20:07] LABS: Bacteria 0 SEEN /hpf (None Seen); Red Blood Cells-Urine 0 SEEN /hpf (0-5); White Blood Cells 0 SEEN /hpf (0-5)
[2021-05-30 20:10] LABS: Color, Urine Yellow (Yellow); Glucose, Dipstick Normal (Normal); Ketone-Dipstick 5 mg/dl (Negative); Leukocyte Esterase-Dipstick 25 /ul (Negative); Nitrite-Dipstick Negative (Negative); Occult Blood-Urine Negative /ul (Negative); Protein-Dipstick 30 mg/dl (Negative); Urine Bilirubin Dipstick Negative (Negative); Urine Clarity Clear (Clear); Urine Urobilinogen 1 mg/dl (Normal)
[2021-05-30 20:39] LABS: Hyaline Cast 25-50 SEEN /lpf (0-5); Mucous, Urine 1+ /hpf (<or=2+); Squamous Epithelial Cells - UA 0-5 SEEN /hpf (0-5)
== END 2021-05-30 22:51 | disposition home or self-care (01) ==
PROVIDERS: Emergency Provider Emergency Medicine; PCP Family Medicine
DX: J44.1 Chronic obstructive pulmonary disease with (acute) exacerbation (principal); E87.0 Hyperosmolality and hypernatremia; N17.9 Acute kidney failure, unspecified; R00.0 Tachycardia, unspecified; I10 Essential (primary) hypertension; F17.210 Nicotine dependence, cigarettes, uncomplicated; Z79.899 Other long term (current) drug therapy
CPT/HCPCS: 71045; 80053; 81001; 83605; 85025; 85610; 85730; 87040; 87426; 93005; 94640; 96374; 96375; 99285; A4216; J2405

== ENCOUNTER 2021-08-09 13:03 | Outpatient (CLI) | payer MEDICARE, MEDICAID, SELFPAY ==
[2021-08-09 15:08] LABS: Absolute Lymphocyte Count 1.25 X10^3/uL (0.83-4.51); Absolute Neutrophil Count 3.3 X10^3/uL (2.0-7.7); Basophil# 0.04 X10^3/uL; Basophil% 0.7 % (0-1); Eosinophil# 0.16 X10^3/uL; Hematocrit 42.1 % (40-54); Hemoglobin 14.2 g/dL (13.0-16.5); Lymphocyte # 1.25 X10^3/ul (0.83-4.51); Lymphocyte % 23.4 % (19-41); Mean Corp Hgb Conc 33.7 g/dL (32-36); Mean Corpuscular Hgb 30.2 pg (27.0-32.0); Mean Corpuscular Volume 89.6 fL (80-94); Mean Platelet Vol. 11.5 fl (6.2-12.0); Monocyte# 0.57 X10^3/uL; Monocyte% 10.7 % (0-10); NRBC Flagged by Analyzer 0 % (0-5); Neutrophil # 3.31 X10^3/uL (2.7-7.7); Neutrophil % 61.8 % (47-70); Platelet Count 213 K/mm3 (150-450); RBC Distribution Width CV 13.5 % (11.6-14.6); RBC Distribution Width SD 44.1 fl (35.1-43.9); White Blood Count 5.4 K/mm3 (4.4-11.0)
[2021-08-09 15:32] LABS: Hemoglobin A1c 5.4 % (3.8-5.6)
[2021-08-09 15:44] LABS: ALB/GLOB Ratio 0.9 RATIO (0.9-2.4); AST(SGOT) 38 U/L (15-37); Alanine Aminotransfer ALT/SGPT 63 U/L (16-61); Albumin, Serum 3.6 g/dL (3.2-5.0); Alkaline Phosphatase 135 U/L (45-117); Anion Gap 10 (5-15); BUN 16 mg/dL (7-18); BUN/Creat Ratio 16.5 RATIO (10-20); Calcium,Total 8.9 mg/dL (8.5-10.1); Chloride 111 mmol/L (98-107); Cholesterol 183 mg/dL (200); Creatinine, Serum 0.97 mg/dL (0.70-1.30); EST Glomerular Filtration Rate 83 mL/min (>60); Est Glom Filt Rate - Afr Amer 100 mL/min (>60); Globulin 3.9 g/dL (2.2-4.2); Glucose 106 mg/dL (74-106); High Density Lipoprotein 64 mg/dL; PSA,Total - Annual Screen 1.31 ng/mL (0.00-4.00); Potassium 3.7 mmol/L (3.5-5.1); Protein, Total 7.5 g/dL (6.4-8.2); Sodium Level 144 mmol/L (136-145); Thyroid Stim Hormone (TSH) 0.04 uIU/mL (0.358-3.74); Triglycerides 68 mg/dL; Very Low Density Lipoprotein 14 mg/dL (5-40)
== END 2021-08-09 23:59 | disposition short-term general hospital (02) ==
LOC: MTLAB 13:04
PROVIDERS: PCP Family Medicine; Referring Provider Family Medicine; Visit Provider Family Medicine
DX: Z00.00 Encounter for general adult medical examination without abnormal findings (principal); Z13.220 Encounter for screening for lipoid disorders; I10 Essential (primary) hypertension; R73.9 Hyperglycemia, unspecified; R94.6 Abnormal results of thyroid function studies; Z12.5 Encounter for screening for malignant neoplasm of prostate
CPT/HCPCS: 36415; 80053; 80061; 83036; 84153; 84443; 85025; G0103

== ENCOUNTER → 2021-12-13 | Outpatient (CLI) | payer MEDICARE, MEDICAID, SELFPAY ==
[2021-12-13 15:39] LABS: Free T3 2.3 pg/mL (2.18-3.98); T4 Free Direct 0.83 ng/dL (0.76-1.46); Thyroid Stim Hormone (TSH) 0.24 uIU/mL (0.358-3.74)
[2021-12-15 17:17] LABS: Thyroid Stim Immunoglob <0.10 IU/L (0.00-0.55)
== END | disposition home or self-care (01) ==
LOC: BIMLAB 13:29
PROVIDERS: PCP Family Medicine; Referring Provider Internal Medicine Endocrinology, Diabetes & Metabolism; Visit Provider Internal Medicine Endocrinology, Diabetes & Metabolism
DX: E05.90 Thyrotoxicosis, unspecified without thyrotoxic crisis or storm (principal); E83.51 Hypocalcemia
CPT/HCPCS: 36415; 84439; 84443; 84445; 84481

== ENCOUNTER → 2022-03-07 | Outpatient (CLI) | payer MEDICARE, MEDICAID, SELFPAY ==
[2022-03-07 14:02] LABS: Free T3 2.2 pg/mL (2.18-3.98); T4 Free Direct 0.98 ng/dL (0.76-1.46); Thyroid Stim Hormone (TSH) 0.14 uIU/mL (0.358-3.74)
== END | disposition home or self-care (01) ==
LOC: LAB 12:27
PROVIDERS: PCP Family Medicine; Visit Provider Internal Medicine Endocrinology, Diabetes & Metabolism
DX: E05.90 Thyrotoxicosis, unspecified without thyrotoxic crisis or storm (principal); E83.51 Hypocalcemia
CPT/HCPCS: 36415; 84439; 84443; 84481

== ENCOUNTER → 2022-04-17 | Outpatient (CLI) | payer MEDICARE, MEDICAID, SELFPAY ==
--- NOTE | 2022-04-17 10:13 | NM_ITS ---
STUDY: NUCLEAR MEDICINE RADIOPHARMACEUTICAL THERAPY. REASON FOR EXAM: Male, 66 years old. Thyro toxosis TECHNIQUE: The patient ingested 16 mCi of IODINE-131 COMPARISON: None. FINDINGS: Patient ingested 16 mCi of IODINE-131. NM/Therapy I-131 IMPRESSION: The patient ingested 16 mCi of IODINE-131 for the treatment of thyrotoxicosis. Electronically Signed: Joe Cordero MD at 8:41 EDT ,
== END | disposition home or self-care (01) ==
LOC: NM 10:13
PROVIDERS: PCP Family Medicine; Referring Provider Internal Medicine Endocrinology, Diabetes & Metabolism; Visit Provider Internal Medicine Endocrinology, Diabetes & Metabolism
DX: E05.90 Thyrotoxicosis, unspecified without thyrotoxic crisis or storm (principal)
CPT/HCPCS: 79005; A9517

== ENCOUNTER 2022-05-11 15:04 | Emergency (ER) | payer MEDICARE, MEDICAID, SELFPAY ==
[2022-05-11 15:06] VITALS: BP 129/86; PULSE 95; RESP 18; TEMP 36.4; O2SAT 99; BMI 30.8
[2022-05-11] MEDS: morphine 10 MG/ML Syringe IM (18:43)
[2022-05-11] MEDS: Ketorolac 30 MG/ML Syringe IM (18:43)
[2022-05-11] MEDS: Orphenadrine 60 MG/2 ML Ampul IM (18:43)
--- NOTE | 2022-05-11 19:06 | RAD_ITS ---
EXAM: XR LUMBOSACRAL SPINE, 2 OR 3 VIEWS CLINICAL INDICATION: pain/injury TECHNIQUE: Frontal and lateral views of the lumbar spine and sacrum. This report was created using [employer] report generation technology. COMPARISON: 04/22/2021 FINDINGS: VERTEBRAE: Unremarkable. Preserved vertebral body height. No fracture. No spondylolisthesis. Preservation of the normal lumbar lordosis. No significant facet arthropathy. DISC SPACES: There is disc space narrowing at L5-S1. There is bony neural foraminal narrowing level. GASTROINTESTINAL TRACT: Unremarkable as visualized. Included bowel gas pattern is non-obstructive. RAD/Lumbar Spine 2 or 3 Views IMPRESSION: Degenerative changes with disc space narrowing and bony neural foraminal narrowing at L5-S1 which is stable. There are no acute osseous abnormalities. Electronically Signed: Martin Lemons MD at 19:51 EDT ,
[2022-05-11 19:43] VITALS: BP 148/89; PULSE 69; RESP 18; O2SAT 99
--- NOTE | 2022-05-11 20:51 | ED.VIS.BACK ---
HPI History of Present Illness Chief Complaint: Back Informant: patient Onset/Context/Timing Onset: Yesterday Context: Sudden Onset Injury: lifting Timing: Continuous Quality: Aching Location: Lumbar and Left Leg Current Severity: Severe Maximum Severity: Severe Worsened by: improves with Movement, Ambulation and Bending Relieved by: Remaining Still Associated Symptoms Associated Symptoms: Radiation to Right Leg; Negative for Numbness, Tingling, Radiation to Left Leg, Abdominal Pain, Unable to Ambulate, Unable to Transfer, Urinary Retention, Urinary Incontinence, Constipation or Fecal Incontinence Narrative Narrative: Patient with a history of similar symptoms, states he threw his back out again yesterday when he was lifting some heavy boxes off of a shelf. Sudden onset of pain, radiates into his posterior right thigh but not below. No numbness or tingling, no bowel or bladder dysfunction, no saddle anesthesia. States he has history of spinal stenosis. He does not have any weakness in his legs now nor before this injury yesterday. Pain has been [id number] today. He has never seen non destructive evaluation specialist for this. [facility] Medical History (Updated 05/11/22 @ 20:[address] Justin Feng MD) Chronic back pain Cirrhosis COPD (chronic obstructive pulmonary disease) Heavy alcohol use Hepatitis C HTN (hypertension) Hypertension Primary osteoarthritis of left knee Smoker Spinal stenosis Thyrotoxicosis Tobacco dependence Home Medications albuterol sulfate 90 mcg/actuation aerosol inhaler 2 puff inhalation Q6H PRN PRN Sob &/Or Wheezing 12/02/13 [History Last Taken 12/14/20] pantoprazole 40 mg tablet,delayed release 40 mg PO DAILY 12/02/13 [History Last Taken 12/15/20] amlodipine 5 mg tablet 5 mg PO DAILY 12/27/18 [History Last Taken 12/15/20] lisinopril 20 mg tablet 20 mg PO DAILY BP 09/04/19 [History Last Taken 12/15/20] gabapentin 600 mg tablet 1 tablet PO TID NERVE PAIN 01/12/20 [History Last Taken 12/15/20] ascorbic acid (vitamin C) 500 mg tablet 500 mg PO DAILY 12/16/20 [History Last Taken 12/15/20] bupropion HCl 300 mg 24 hr tablet, extended release 300 mg PO DAILY 12/16/20 [History Last Taken 12/15/20] cholecalciferol (vitamin D3) 50 mcg (2,000 unit) capsule 50 mcg PO DAILY 12/16/20 [History Last Taken 12/15/20] docusate sodium 100 mg capsule 100 mg PO DAILY CONSTIPATION 12/16/20 [History Last Taken Unknown] flaxseed 1,000 mg capsule 1,000 mg PO DAILY SUPPLEMENT 12/16/20 [History Last Taken 12/15/20] zinc 50 mg tablet 50 mg PO DAILY 12/16/20 [History Last Taken 12/15/20] hydrocodone-acetaminophen 5-325mg 5mg-325mg 1 tab PO Q4H PRN PRN Pain 2 days #10 TABLETS 04/22/21 [Rx Last Taken Unknown] naproxen 500 mg tablet 500 mg PO BID #14 tabs 04/22/21 [Rx Last Taken Unknown] doxycycline monohydrate 100 mg capsule 100 mg PO BID #10 CAPSULES 05/30/21 [Rx Last Taken Unknown] prednisone 20 mg tablet 60 mg PO DAILY #15 TABLETS 05/30/21 [Rx Last Taken Unknown] methimazole 10 mg tablet 5 mg PO DAILY #30 tabs 12/13/21 [Rx Last Taken Unknown] hydrocodone-acetaminophen 5-325mg 5mg-325mg 1 tab PO Q4H PRN PRN Pain 2 days #10 TABLETS 05/11/22 [Rx Last Taken Unknown] Allergy/AdvReac Type Severity Reaction Status Date / Time codeine Allergy Other Verified 05/11/22 15:06 propoxyphene HCl Allergy Other Verified 05/11/22 15:06 [From Darvon] propoxyphene napsylate Allergy Other Verified 05/11/22 15:06 [From Darvocet-N 100] Surgical History Chronic right shoulder pain H/O arthroscopy of left knee H/O right knee surgery S/P hernia repair Social History household members: none Smoking Status: Current every day smoker tobacco type: cigarettes substance use type: does not use ROS ROS ED Constitutional Constitutional ED: Denies chills or fever(s) Gastrointestinal Gastrointestinal: Denies abdominal pain, constipation, fecal incontinence, nausea or vomiting Genitourinary Genitourinary ED: Reports other Details: no urinary retention ; Denies abdominal discomfort or urinary incontinence Musculoskeletal Musculoskeletal: Reports as per HPI and back pain; Denies neck pain Integumentary Denies rash or wounds Neurologic Neurologic: Denies headache(s), paresthesias or weakness EXAM Physical Exam Const Vital Signs: 05/11/22 15:06 05/11/22 19:43 Temperature 97.5 F L Temperature Source Temporal Pulse Rate 95 69 Respiratory Rate 18 18 Blood Pressure 129/86 H 148/89 H Blood Pressure Mean 100 108 Pulse Ox 99 99 Oxygen Delivery Method Room Air Room Air Positive well nourished and well developed General Appearance ED: well developed and NAD HEENT Negative for trauma or tenderness Eyes PERRL and EOMs intact bilaterally Neck full ROM and supple GI normal to inspection, nondistended, normoactive bowel sounds, soft to palpation and non-tender Back/Spine normal to inspection Back/Spine Narrative: Patient has some tenderness in the midline lumbosacral spine, addition to the right paraspinal area, it is diffuse. Lumbar Spine / Lower Back: ROM limited, paraspinal muscle tenderness and straight leg raise negative bilaterally; Negative for lumbar spinal tenderness Extremity normal to inspection, full ROM and no pedal edema Neuro oriented x3 and no sensory deficits noted Sensorium / Orientation: alert Motor Exam: strength 5/5 throughout and clonus absent Deep Tendon Reflexes: Rt Patellar (L4): 2+, Lt Patellar (L4): 2+, Rt Ankle (S1): 2+ and Lt Ankle (S1): 2+ Deep Tendon Reflexes Back: Rt Patellar (L4): 2+, Lt Patellar (L4): 2+, Rt Ankle (S1): 2+ and Lt Ankle (S1): 2+ Plantar Reflex: Downgoing: bilateral Psych mental status grossly normal and thought process normal Skin no rashes or lesions noted and no wounds MDM MDM MDM Narrative Medical decision making narrative: Patient was initially seen prone. He he is in some mild painful distress, he is able to get up and around and lie supine on his own, he has normal reflexes and negative straight leg raises. I did x-rays because of the midline involvement and the mechanism, they show nothing acute. He was given morphine, Toradol, Norflex and a reevaluation he is sitting in the bedside chair comfortably and feeling much better. Asking for a work note, will give him a short prescription for analgesics and advised close outpatient follow-up and evaluation with spine if he truly had some imaging in the past that showed spinal stenosis which he confirms. Radiography Diagnostic Testing: Clinical Impression(s) from Imaging Studies Lumbar Spine X-Ray 05/11/22 19:06 IMPRESSION: Degenerative changes with disc space narrowing and bony neural foraminal narrowing at L5-S1 which is stable. There are no acute osseous abnormalities. Electronically Signed: Martin Lemons MD at 19:51 EDT , Discharge Plan Triage Chief Complaint: Back ED Provider: Justin Feng Dx/Rx/DC Orders Clinical Impression: Acute low back pain, Spinal stenosis Instructions: ED Back Pain (Acute or Chronic) Prescriptions: New hydrocodone-acetaminophen [hydrocodone-acetaminophen] 5-325 mg tablet 1 tab PO Q4H PRN PRN (Reason: Pain) 2 Days Qty: 10 0RF No Action gabapentin 600 mg tablet 1 tablet PO TID Label Comments: TAKE 1 TABLET THREE TIMES DAILY pantoprazole 40 MG tablet 40 mg PO DAILY Label Comments: acid reflux albuterol sulfate 1 PUFF inhaler 2 puff INHALATION Q6H PRN PRN (Reason: Sob &/Or Wheezing) Label Comments: sob/ wheeze amlodipine 5 MG tablet 5 mg PO DAILY Label Comments: TAKE 1 TABLET BY MOUTH EVERY DAY lisinopril 20 MG tablet 20 mg PO DAILY Label Comments: TAKE 1 TABLET BY MOUTH DAILY bupropion HCl 300 mg tablet extended release 24 hr 300 mg PO DAILY Label Comments: TAKE 1 TABLET ONCE DAILY ascorbic acid (vitamin C) 500 mg Tablet 500 mg PO DAILY docusate sodium 100 mg capsule 100 mg PO DAILY Label Comments: TAKE 1 TABLET ONCE DAILY zinc 50 mg Tablet 50 mg PO DAILY cholecalciferol (vitamin D3) 50 mcg (2,000 unit) Capsule 50 mcg PO DAILY flaxseed 1,000 mg Capsule 1,000 mg PO DAILY hydrocodone-acetaminophen [hydrocodone-acetaminophen] 1 TABLET tablet 1 tab PO Q4H PRN PRN (Reason: Pain) 2 Days Qty: 10 0RF naproxen 500 MG tablet 500 mg PO BID Qty: 14 0RF prednisone 20 MG tablet 60 mg PO DAILY Qty: 15 0RF doxycycline monohydrate 100 MG capsule 100 mg PO BID Qty: 10 0RF methimazole 10 mg tablet 5 mg PO DAILY Qty: 30 4RF Stand Alone Forms: ED Work / School Excuse Primary Care Provider: Deo Ahn Referrals: Anup Ribera DO [Med Staff - Active Staff] - (Call for follow-up appointment if you have persistent symptoms) Deo Ahn MD [Primary Care Provider] - Disposition Disposition: Home, Self Care
[2022-05-11 21:11] VITALS: BP 143/69; PULSE 79; RESP 16; O2SAT 98
== END 2022-05-11 21:11 | disposition home or self-care (01) ==
PROVIDERS: Emergency Provider Emergency Medicine; PCP Family Medicine; Visit Provider Emergency Medicine
DX: M48.07 Spinal stenosis, lumbosacral region (principal); J44.9 Chronic obstructive pulmonary disease, unspecified; G89.29 Other chronic pain; I10 Essential (primary) hypertension; F17.210 Nicotine dependence, cigarettes, uncomplicated; Z79.899 Other long term (current) drug therapy
CPT/HCPCS: 72100; 96372; 99282

== ENCOUNTER 2022-06-11 13:08 | Inpatient (IN) | payer MEDICARE, MEDICAID, SELFPAY ==
[2022-06-11] VITALS (14 sets, daily range): BP systolic 119–150; BP diastolic 73–93; PULSE 72–90; RESP 14–18; TEMP 36.4–37.4; O2SAT 96–100; BMI 31.8; BMI 33.5; BMI 32.5
--- NOTE | 2022-06-11 13:23 | CT_ITS ---
STUDY: CT HEAD STROKE PROTOCOL W/O CONTRAST INJECTION REASON FOR EXAM: Male, 67 years old. Neuro deficit, acute, stroke suspected RADIATION DOSAGE (If Supplied By Facility): CTDIvol = ( ) mGy, DLP = ( ) mGycm TECHNIQUE: Transaxial CT imaging of the brain was performed without administration of intravenous contrast material. Individualized dose optimization techniques were used for this CT. COMPARISON: Head CT dated September 16, 2012. FINDINGS: Small hypodensity seen on the left side of the zeeshan appears well formed and with parenchymal loss that would indicate an old lacunar infarct, see image series 2 and series 602. No visualized dense artery sign of the MCA or basilar artery. No visualized sulcal effacement or parenchymal edema. Normal soft tissue structures. Normal calvarium. There is mild cerebral atrophy with widening of the extra-axial spaces and ventricular dilatation. There are areas of decreased attenuation within the white matter tracts of the supratentorial brain, consistent with microvascular disease changes. Normal basal ganglia and thalami. Normal brainstem. Normal cerebellum. There is no intracranial hemorrhage. There are no findings of an acute ischemic infarction. Normal visualized paranasal sinuses. ASPECT score: 10 CT/STROKE Brain/Head without Cont IMPRESSION: 1. Small hypodensity seen on the left side of the zeeshan appears well formed and with parenchymal loss that would indicate an old lacunar infarct, see image 43 series 2 and 73 series 602. 2. No visualized dense artery sign of the MCA or basilar artery. No visualized sulcal effacement or parenchymal edema. 3. Chronic involutional changes of the brain. N.B. : The above Results were Read Back by Aris Bassett MD to Dr. Jung MD, and understanding confirmed on 06/11/2022 14:01:05 (ET). Electronically Signed: Aris Bassett MD at 14:02 EST ,
--- NOTE | 2022-06-11 13:23 | EKG12_ITS ---
Test Reason : CP Blood Pressure : / mmHG Vent. Rate : 080 BPM Atrial Rate : 080 BPM P-R Int : 164 ms QRS Dur : 086 ms QT Int : 374 ms P-R-T Axes : 068 036 053 degrees QTc Int : 431 ms Normal sinus rhythm Normal ECG Confirmed by MARISELA ZURITA, CHERYL ([id number]), editor publications ANUPAM PEÑA ([id number]) on 06/13/2022 11:18:27 AM Referred By: BB Confirmed By:CHERYL ANTONIO MD
--- NOTE | 2022-06-11 13:23 | CT_ITS ---
STUDY: CTA HEAD AND NECK WITH CONTRAST REASON FOR EXAM: Male, 67 years old. Neuro deficit, acute, stroke suspected RADIATION DOSAGE (If Supplied By Facility): CTDIvol = ( 31.02 ) mGy, DLP = ( 755.12 ) mGycm TECHNIQUE: CT angiography was performed with a multi-detector CT scanner. Data acquisition was obtained from the skull base through the vertex following intravenous administration of IV 100mL Isovue-370. MIP images were reconstructed from the axial data set. Post-processing of the angiographic images was performed, with multiplanar reformation and 3D reconstruction. Individualized dose optimization techniques were used for this CT. COMPARISON: Head CT dated June 11, 2022 FINDINGS: Normal bilateral petrous carotid arteries. There is calcified plaque formation of the right cavernous carotid artery, with a mild stenosis (less than 50%). There is calcified plaque formation of the left cavernous carotid artery, with a mild stenosis (less than 50%). Normal right A1 segments of the anterior cerebral artery. Normal left A1 segments of the anterior cerebral artery. Normal intact anterior communicating artery (ACOM). Normal bilateral A2 segments of the anterior cerebral arteries. Normal right M1 and M2 segments of the middle cerebral arteries, with a normal M1 bifurcation. Normal left M1 and M2 segments of the middle cerebral arteries, with a normal M1 bifurcation. Normal right posterior communicating artery (PCOM). There is non-visualization of the left posterior communicating artery (PCOM). Calcified atherosclerotic plaque of the right vertebral artery at the level of the foramen magnum results in mild luminal stenosis of approximately 20-30%. Otherwise normal aspect of the right vertebral artery. Normal left vertebral artery.. There is tortuosity with elongation of the basilar artery. The visualized bilateral superior cerebellar (SCA) arteries are normal. Normal bilateral P1, P2 and visualized P3 segments of the posterior cerebral arteries. There is no demonstrated aneurysm of the [place]. There is no demonstrated abnormality of the visualized brain. AORTIC ARCH: There is atherosclerotic calcific plaque formation of the aortic arch and great vessels arising from the aortic arch, without a hemodynamically significant stenosis. There is a normal origin of the brachiocephalic, left common carotid, and left subclavian arteries. Normal origins of the brachiocephalic, left common carotid, and left subclavian arteries. There is no demonstrated dissection of the visualized aspects of the aortic arch or descending thoracic aorta. RIGHT CAROTID ARTERIES: Normal right common carotid artery (CCA). Normal right common carotid bulb. Normal origin of the right internal carotid (ICA) artery without a hemodynamically significant stenosis. Normal visualized cervical portion of the right internal carotid artery. Normal origin of the right external carotid artery (ECA). LEFT CAROTID ARTERIES: Normal left common carotid artery (CCA). Normal left common carotid bulb. Normal origin of the left internal carotid (ICA) artery without a hemodynamically significant stenosis. Normal visualized cervical portion of the left internal carotid artery. Normal origin of the left external carotid artery (ECA). VERTEBRAL ARTERIES: Normal bilateral vertebral arteries. CT/STROKE CTA Head AND Neck W/Con IMPRESSION: 1. Negative [place] without a demonstrated aneurysm or hemodynamically significant stenosis or visualized intra-arterial thrombus. 2. Calcified atherosclerotic plaque of the right vertebral artery at the level of the foramen magnum results in mild luminal stenosis of approximately 20-30%. Otherwise normal aspect of the right vertebral artery. 3. Normal bilateral cervical carotid and vertebral arteries. N.B. : The above Results were Read Back by Aris Bassett MD to Gaetano Siegel and understanding confirmed on 06/11/2022 14:00:05 (ET). Electronically Signed: Aris Bassett MD at 14:01 EST ,
--- NOTE | 2022-06-11 13:25 | EDS_ITS ---
HPI <MAURO Taylor - Last Filed: 06/11/22 13:35> History of Present Illness Chief Complaint: Neuro S/Sx Narrative Narrative: 67-year-old male with history of hypertension, chronic back pain, chronic left knee pain, presents to the emergency department with sudden onset of slurred speech, left-sided facial droop, weakness to his left arm, chest pain that started approximately 1030 today while the patient was at work. He also complains of a feeling of dizziness with this. Patient then drove himself to the emergency department. Patient states that his eye has improved however the patient is having continued chest pain, left arm weakness, paresthesia, slurred speech. No history of any infectious process. [facility] <MAURO Taylor - Last Filed: 06/11/22 13:35> [facility] Medical History (Updated 06/11/22 @ 14:[address] Justin Feng MD) Chronic back pain Cirrhosis COPD (chronic obstructive pulmonary disease) Heavy alcohol use Hepatitis C HTN (hypertension) Hypertension Primary osteoarthritis of left knee Smoker Spinal stenosis Thyrotoxicosis Tobacco dependence Home Medications albuterol sulfate 90 mcg/actuation aerosol inhaler 2 puff inhalation Q6H PRN PRN Sob &/Or Wheezing 12/02/13 [History Last Taken 12/14/20] pantoprazole 40 mg tablet,delayed release 40 mg PO DAILY 12/02/13 [History Last Taken 12/15/20] amlodipine 5 mg tablet 5 mg PO DAILY 12/27/18 [History Last Taken 12/15/20] lisinopril 20 mg tablet 20 mg PO DAILY BP 09/04/19 [History Last Taken 12/15/20] gabapentin 600 mg tablet 1 tablet PO TID NERVE PAIN 01/12/20 [History Last Taken 12/15/20] ascorbic acid (vitamin C) 500 mg tablet 500 mg PO DAILY 12/16/20 [History Last Taken 12/15/20] bupropion HCl 300 mg 24 hr tablet, extended release 300 mg PO DAILY 12/16/20 [History Last Taken 12/15/20] cholecalciferol (vitamin D3) 50 mcg (2,000 unit) capsule 50 mcg PO DAILY 12/16/20 [History Last Taken 12/15/20] docusate sodium 100 mg capsule 100 mg PO DAILY CONSTIPATION 12/16/20 [History Last Taken Unknown] flaxseed 1,000 mg capsule 1,000 mg PO DAILY SUPPLEMENT 12/16/20 [History Last Taken 12/15/20] zinc 50 mg tablet 50 mg PO DAILY 12/16/20 [History Last Taken 12/15/20] hydrocodone-acetaminophen 5-325mg 5mg-325mg 1 tab PO Q4H PRN PRN Pain 2 days #10 TABLETS 04/22/21 [Rx Last Taken Unknown] naproxen 500 mg tablet 500 mg PO BID #14 tabs 04/22/21 [Rx Last Taken Unknown] doxycycline monohydrate 100 mg capsule 100 mg PO BID #10 CAPSULES 05/30/21 [Rx Last Taken Unknown] prednisone 20 mg tablet 60 mg PO DAILY #15 TABLETS 05/30/21 [Rx Last Taken Unknown] methimazole 10 mg tablet 5 mg PO DAILY #30 tabs 12/13/21 [Rx Last Taken Unknown] hydrocodone-acetaminophen 5-325mg 5mg-325mg 1 tab PO Q4H PRN PRN Pain 2 days #10 TABLETS 05/11/22 [Rx Last Taken Unknown] Allergy/AdvReac Type Severity Reaction Status Date / Time codeine Allergy Other Verified 06/11/22 13:09 propoxyphene HCl Allergy Other Verified 06/11/22 13:09 [From Darvon] propoxyphene napsylate Allergy Other Verified 06/11/22 13:09 [From Darvocet-N 100] Surgical History Chronic right shoulder pain H/O arthroscopy of left knee H/O right knee surgery S/P hernia repair Social History household members: none Smoking Status: Current every day smoker tobacco type: cigarettes substance use type: does not use ROS <MAURO Taylor - Last Filed: 06/11/22 13:35> ROS ED ROS Narrative Constitutional: Negative for fever, chills, weight loss, weakness Eyes: Negative for vision loss, vision change, double vision. Positive for left-sided facial droop ENT: Negative for any sore throat, ear pain, congestion Cardiovascular: Negative for any tightness, palpitations. Positive for chest pain Respiratory: Negative for any cough, sputum production, hemoptysis, dyspnea, dyspnea on exertion, orthopnea Gastrointestinal: Negative for any abdominal pain, nausea, vomiting, diarrhea, constipation, blood in stool, blood in vomit : Negative for any urinary frequency, dysuria, retention, blood in urine Muscle skeletal: Negative for any muscle joint pain, stiffness, myalgias, arthralgias, neck pain, back pain. Positive weakness to the left arm Neurological: Negative for any headache, syncope. Positive for numbness, tingling, weakness of the left upper extremity. Positive for dizziness Skin: Negative for any rashes, lumps, itching, abrasions, lacerations Psychiatric: Negative for any depression, anxiety, stress, suicidal ideation, homicidal ideation Hematologic: Negative for any easy bruising, excessive bruising, easy bleeding Allergies: Negative for any eczema, hives, rash EXAM <MAURO Taylor - Last Filed: 06/11/22 13:35> Physical Exam Narrative Exam Narrative: Vital signs reviewed. HEET: Head normocephalic atraumatic, TMs clear bilaterally. Posterior pharynx is clear, moist mucous membranes. Nares clear bilaterally. No facial droop appreciated. No numbness or tingling to the left side of her face. Neck: Supple with no lymphadenopathy or tenderness. No signs of meningismus, negative jolt sign. Cardiac: Regular rate and rhythm no murmurs gallops or rubs, equal peripheral pulses bilaterally. Respiratory: Lungs clear to auscultation bilaterally. No chest tenderness. Abdomen: Soft, nontender, nondistended. No abdominal bruit or pulsatile masses. No hepatosplenomegaly Extremities: No peripheral edema, no signs of gross trauma or deformity. Patient has weakness to the left arm Neuro: Cranial nerves II through XII intact, negative for any facial droop, patient is showing some slurred speech as well as expressive aphasia. Patient has left arm weakness as well as paresthesias total NIH score of 4 Skin: Clean dry and intact with no rash, purpura, petechiae, vesicles or pustules. Backs/flank: No CVA tenderness, no midline spinal tenderness, no deformity. Psych: Normal mood and affect. No SI, HI or acute psychosis. Const Vital Signs: 06/11/22 13:09 06/11/22 13:17 06/11/22 13:22 Temperature 97.5 F L 97.8 F Temperature Source Temporal Temporal Pulse Rate 90 88 72 Respiratory Rate 18 16 18 Blood Pressure 150/84 H 135/90 H 135/90 H Blood Pressure Mean 106 105 105 Pulse Ox 100 97 98 Oxygen Delivery Method Room Air Room Air Room Air 06/11/22 13:31 06/11/22 13:31 06/11/22 13:46 Temperature 97.8 F 97.8 F Temperature Source Temporal Temporal Pulse Rate 88 81 Respiratory Rate 16 14 Blood Pressure 135/90 H 141/87 H Blood Pressure Mean 105 105 Pulse Ox 98 98 Oxygen Delivery Method Room Air Room Air Room Air 06/11/22 13:53 Temperature 97.8 F Temperature Source Temporal Pulse Rate 75 Respiratory Rate 18 Blood Pressure 141/87 H Blood Pressure Mean 105 Pulse Ox 96 Oxygen Delivery Method Room Air NIHSS NIHSS NIH stroke score of 4, left arm paresthesia, left arm weakness, slurred speech, expressive aphasia: 1a Level of Consciousness: 0 1b LOC Questions (Score 2 if aphasic/stupor): 0 1c LOC Commands (Only score 1st attempt): 0 2 Best Gaze (If aphasic, use reflexive mvmts.): 0 3 Visual: 0 4 Facial Palsy: 0 5 Motor Arm Right (UN = amputation/fusion): 0 5 Motor Arm Left: 1 6 Motor Leg Right: 0 6 Motor Leg Left: 0 7 Limb ataxia (Only + if out of proportion): 0 8 Sensory (Aphasia/stupor=0 or 1, coma=2): 1 9 Best Language: 1 10 Dysarthria (mute, coma=2, intubated=UN): 1 11 Extinction and Inattention (only scored if +): 0 Total Score: 4 <Dr. Justin Feng MD - Last Filed: 06/11/22 14:12> Physical Exam Const Vital Signs: 06/11/22 13:09 06/11/22 13:17 06/11/22 13:22 Temperature 97.5 F L 97.8 F Temperature Source Temporal Temporal Pulse Rate 90 88 72 Respiratory Rate 18 16 18 Blood Pressure 150/84 H 135/90 H 135/90 H Blood Pressure Mean 106 105 105 Pulse Ox 100 97 98 Oxygen Delivery Method Room Air Room Air Room Air 06/11/22 13:31 06/11/22 13:31 06/11/22 13:46 Temperature 97.8 F 97.8 F Temperature Source Temporal Temporal Pulse Rate 88 81 Respiratory Rate 16 14 Blood Pressure 135/90 H 141/87 H Blood Pressure Mean 105 105 Pulse Ox 98 98 Oxygen Delivery Method Room Air Room Air Room Air 06/11/22 13:53 Temperature 97.8 F Temperature Source Temporal Pulse Rate 75 Respiratory Rate 18 Blood Pressure 141/87 H Blood Pressure Mean 105 Pulse Ox 96 Oxygen Delivery Method Room Air NIHSS NIHSS NIH stroke score of 4, left arm paresthesia, left arm weakness, slurred speech, expressive aphasia: Total Score: 4 MDM <MAURO Taylor - Last Filed: 06/11/22 13:35> [facility] Lab Data Labs: Laboratory Results - last 24 hr 06/11/22 06/11/22 06/11/22 13:20 13:20 13:20 WBC 7.3 RBC 4.29 L Hgb 13.2 Hct 39.8 L MCV 92.8 MCH 30.8 MCHC 33.2 RDW Std Deviation 47.1 H RDW Coeff of [place] 13.9 Plt Count 268 MPV 10.0 Immature Gran % (Auto) 0.400 Neut % (Auto) 67.6 Lymph % (Auto) 20.4 [place] % (Auto) 7.7 Eos % (Auto) 3.2 Baso % (Auto) 0.7 Absolute Neuts (auto) 4.9 Absolute Lymphs (auto) 1.48 Nucleated RBC % 0 PT 13.5 INR 1.1 APTT 29.0 Sodium 141 Potassium 4.0 Chloride 109 H Carbon Dioxide 23.0 Anion Gap 9 BUN 17 Creatinine 1.73 H Estim Creat Clear Calc 48.11 Est GFR (MDRD) Af Amer 51 L Est GFR (MDRD) Non-Af 42 L BUN/Creatinine Ratio 9.8 L Glucose 146 H Calcium 9.2 Troponin I High Sens 6 POC Glucose 06/11/22 13:20 WBC RBC Hgb Hct MCV MCH MCHC RDW Std Deviation RDW Coeff of [place] Plt Count MPV Immature Gran % (Auto) Neut % (Auto) Lymph % (Auto) [place] % (Auto) Eos % (Auto) Baso % (Auto) Absolute Neuts (auto) Absolute Lymphs (auto) Nucleated RBC % PT INR APTT Sodium Potassium Chloride Carbon Dioxide Anion Gap BUN Creatinine Estim Creat Clear Calc Est GFR (MDRD) Af Amer Est GFR (MDRD) Non-Af BUN/Creatinine Ratio Glucose Calcium Troponin I High Sens POC Glucose 153 H Radiography Diagnostic Testing: Clinical Impression(s) from Imaging Studies Brain CT 06/11/22 13:23 IMPRESSION: 1. Small hypodensity seen on the left side of the zeeshan appears well formed and with parenchymal loss that would indicate an old lacunar infarct, see image 15/43 series 2 and 37/73 series 602. 2. No visualized dense artery sign of the MCA or basilar artery. No visualized sulcal effacement or parenchymal edema. 3. Chronic involutional changes of the brain. N.B. : The above Results were Read Back by Aris Bassett MD to Dr. Jung MD, and understanding confirmed on 06/11/2022 14:01:05 (ET). Electronically Signed: Aris Bassett MD at 14:02 EST , ADDENDUM: 06/11/22 1409 IMPRESSION: 1. Small hypodensity seen on the left side of the zeeshan appears well formed and with parenchymal loss that would indicate an old lacunar infarct, see image 15/43 series 2 and 37/73 series 602. 2. No visualized dense artery sign of the MCA or basilar artery. No visualized sulcal effacement or parenchymal edema. 3. Chronic involutional changes of the brain. N.B. : The above Results were Read Back by Aris Bassett MD to Dr. Jung MD, and understanding confirmed on 06/11/2022 14:01:05 (ET). Electronically Signed: Aris Bassett MD at 14:02 EST , Head/Neck CTA 06/11/22 13:23 IMPRESSION: 1. Negative stebbins of Kim without a demonstrated aneurysm or hemodynamically significant stenosis or visualized intra-arterial thrombus. 2. Calcified atherosclerotic plaque of the right vertebral artery at the level of the foramen magnum results in mild luminal stenosis of approximately 20-30%. Otherwise normal aspect of the right vertebral artery. 3. Normal bilateral cervical carotid and vertebral arteries. N.B. : The above Results were Read Back by Aris Bassett MD to Gaetano Siegel and understanding confirmed on 06/11/2022 14:00:05 (ET). Electronically Signed: Aris Bassett MD at 14:01 EST , ADDENDUM: 06/11/22 1408 IMPRESSION: 1. Negative stebbins of Kim without a demonstrated aneurysm or hemodynamically significant stenosis or visualized intra-arterial thrombus. 2. Calcified atherosclerotic plaque of the right vertebral artery at the level of the foramen magnum results in mild luminal stenosis of approximately 20-30%. Otherwise normal aspect of the right vertebral artery. 3. Normal bilateral cervical carotid and vertebral arteries. N.B. : The above Results were Read Back by Aris Bassett MD to Gaetano Siegel and understanding confirmed on 06/11/2022 14:00:05 (ET). Electronically Signed: Aris Bassett MD at 14:01 EST , EKG Normal sinus rhythm: Attestation: I personally reviewed and interpreted this EKG as follows: Comments: Normal sinus rhythm, rate of 80 bpm, VA interval 164 ms, QRS duration 86 ms, no acute ST elevation, no acute infarct noted. Treatment and Re-Evaluation Narrative: On initial arrival, patient had an NIH stroke score of 4. The stroke code was called overhead. Patient immediately received the stroke initial protocol. Patient merely went over for CT CTA of the head and neck. All proper blood work was completed. Patient is not a tPA tentative for ischemic stroke. Stroke Documentation Questions Stroke Team Activated: Yes Reviewed Inclusion/Exclusion criteria: Yes <Dr. Justin Feng MD - Last Filed: 06/11/22 14:12> [facility] MDM Narrative Medical decision making narrative: Seen and evaluated independently and in conjunction with OPHTHALMIC SURGEON. Agree with notes above unless documented otherwise. All doing clinically simultaneously with the nurse practitioner. He appears to have an expressive aphasia, some dysarthria, weakness numbness left upper extremity some paresthesias throughout the left side of his face without any weakness in the left side of his face and he is able to squeeze his left eye shut symmetrically. This does not look like a Hernandez's palsy plus he is vertiginous and having chest discomfort and left upper extremity neurologic symptoms. Concern is for acute stroke, and the patient told us that his neurologic symptoms started at 1030, but he woke up around 9 not feeling well, and chest discomfort started somewhere in between. I discussed with stroke neurology who was having trouble being in at the time, he advised mixing tPA, and then subsequently he beamed in in front of the patient. In confirming the time of onset, the patient changes his story, and at that time tPA was mixed and at the bedside and ready to be pushed. Initially he told me he woke up feeling poorly at 9, with neurologic symptoms starting at 1030 but in trying to confirm the last time his arm was not numb, the patient could not tell us definitively, thinking that it might have started at 9 around the time he woke up or may have even woke up with them. If it started at 9, the patient currently is out of the window, if it started at 1030 he is within the window. And confirming with him and his significant other that we do not want to give this medication if he is not absolutely sure, because we do not want to do him harm, they both understand this, and he states he is not sure. Therefore the tPA was canceled and NOT GIVEN. Radiology confirms that he has no LVO or bleed, nor does he have an aortic dissection. His EKG is unremarkable showing no signs of a STEMI, plan will be for admission and further evaluation to PCU. Lab Data Attestation: I reviewed the patient's lab results. Labs: Laboratory Results - last 24 hr 06/11/22 06/11/22 06/11/22 13:20 13:20 13:20 WBC 7.3 RBC 4.29 L Hgb 13.2 Hct 39.8 L MCV 92.8 MCH 30.8 MCHC 33.2 RDW Std Deviation 47.1 H RDW Coeff of [place] 13.9 Plt Count 268 MPV 10.0 Immature Gran % (Auto) 0.400 Neut % (Auto) 67.6 Lymph % (Auto) 20.4 [place] % (Auto) 7.7 Eos % (Auto) 3.2 Baso % (Auto) 0.7 Absolute Neuts (auto) 4.9 Absolute Lymphs (auto) 1.48 Nucleated RBC % 0 PT 13.5 INR 1.1 APTT 29.0 Sodium 141 Potassium 4.0 Chloride 109 H Carbon Dioxide 23.0 Anion Gap 9 BUN 17 Creatinine 1.73 H Estim Creat Clear Calc 48.11 Est GFR (MDRD) Af Amer 51 L Est GFR (MDRD) Non-Af 42 L BUN/Creatinine Ratio 9.8 L Glucose 146 H Calcium 9.2 Troponin I High Sens 6 POC Glucose 06/11/22 13:20 WBC RBC Hgb Hct MCV MCH MCHC RDW Std Deviation RDW Coeff of [place] Plt Count MPV Immature Gran % (Auto) Neut % (Auto) Lymph % (Auto) [place] % (Auto) Eos % (Auto) Baso % (Auto) Absolute Neuts (auto) Absolute Lymphs (auto) Nucleated RBC % PT INR APTT Sodium Potassium Chloride Carbon Dioxide Anion Gap BUN Creatinine Estim Creat Clear Calc Est GFR (MDRD) Af Amer Est GFR (MDRD) Non-Af BUN/Creatinine Ratio Glucose Calcium Troponin I High Sens POC Glucose 153 H Radiography Chest X-Ray - ED: 1 View, Read by ED Physician, No Acute Disease and No Infiltrates Diagnostic Testing: Clinical Impression(s) from Imaging Studies Brain CT 06/11/22 13:23 IMPRESSION: 1. Small hypodensity seen on the left side of the zeeshan appears well formed and with parenchymal loss that would indicate an old lacunar infarct, see image 15/43 series 2 and 37/73 series 602. 2. No visualized dense artery sign of the MCA or basilar artery. No visualized sulcal effacement or parenchymal edema. 3. Chronic involutional changes of the brain. N.B. : The above Results were Read Back by Aris Bassett MD to Dr. Jung MD, and understanding confirmed on 06/11/2022 14:01:05 (ET). Electronically Signed: Aris Bassett MD at 14:02 EST Reading Location ID and State: [facility] / [place] , Service support , ADDENDUM: 06/11/22 1409 IMPRESSION: 1. Small hypodensity seen on the left side of the zeeshan appears well formed and with parenchymal loss that would indicate an old lacunar infarct, see image 15/43 series 2 and 37/73 series 602. 2. No visualized dense artery sign of the MCA or basilar artery. No visualized sulcal effacement or parenchymal edema. 3. Chronic involutional changes of the brain. N.B. : The above Results were Read Back by Aris Bassett MD to Dr. Jung MD, and understanding confirmed on 06/11/2022 14:01:05 (ET). Electronically Signed: Aris Bassett MD at 14:02 EST , Head/Neck CTA 06/11/22 13:23 IMPRESSION: 1. Negative stebbins of Kim without a demonstrated aneurysm or hemodynamically significant stenosis or visualized intra-arterial thrombus. 2. Calcified atherosclerotic plaque of the right vertebral artery at the level of the foramen magnum results in mild luminal stenosis of approximately 20-30%. Otherwise normal aspect of the right vertebral artery. 3. Normal bilateral cervical carotid and vertebral arteries. N.B. : The above Results were Read Back by Aris Bassett MD to Gaetano Siegel and understanding confirmed on 06/11/2022 14:00:05 (ET). Electronically Signed: Aris Bassett MD at 14:01 EST , ADDENDUM: 06/11/22 140 IMPRESSION: 1. Negative stebbins of Kim without a demonstrated aneurysm or hemodynamically significant stenosis or visualized intra-arterial thrombus. 2. Calcified atherosclerotic plaque of the right vertebral artery at the level of the foramen magnum results in mild luminal stenosis of approximately 20-30%. Otherwise normal aspect of the right vertebral artery. 3. Normal bilateral cervical carotid and vertebral arteries. N.B. : The above Results were Read Back by Aris Bassett MD to Gaetano Siegel and understanding confirmed on 06/11/2022 14:00:05 (ET). Electronically Signed: Aris Bassett MD at 14:01 EST , Rhythm Strip Rhythm Strip: Sinus Rhythm Rate: 80 Ectopy: None EKG Normal sinus rhythm: Attestation: I personally reviewed and interpreted this EKG as follows: Interpretation: Sinus Rhythm and No Acute Injury Pattern Stroke Documentation Questions Was Patient considered for Endovascular Intervention?: No-CTA negative, determined not to be an endovascular candidate IV Alteplase (t-PA) Administered: No (see above; timing) <Dr. Justin Feng MD - Last Filed: 06/11/22 14:12> Critical Care Time Critical Care Time: Yes Critical care time (excluding procedures): 30-74 minutes (35 min), Including time spent:, Discussing w/Patient &/or Family/Director Of Diversity And Inclusion, Discussing w/Consultants, Arranging Admission or Transfer and Performing Direct Patient Care at Bedside Discharge Plan Dx/Rx/DC Orders Clinical Impression: Acute ischemic stroke, Chest pain, Chronic low back pain Disposition Disposition: Acute Care [facility]
--- NOTE | 2022-06-11 13:28 | NURSING ---
[id number] STROKE ALERT CALLED
[2022-06-11 13:29] LABS: Absolute Lymphocyte Count 1.48 X10^3/uL (0.83-4.51); Absolute Neutrophil Count 4.9 X10^3/uL (2.0-7.7); Basophil# 0.05 X10^3/uL; Basophil% 0.7 % (0-1); Eosinophil# 0.23 X10^3/uL; Eosinophils% 3.2 % (0-5); Hematocrit 39.8 % (40-54); Hemoglobin 13.2 g/dL (13.0-16.5); Lymphocyte # 1.48 X10^3/ul (0.83-4.51); Lymphocyte % 20.4 % (19-41); Mean Corp Hgb Conc 33.2 g/dL (32-36); Mean Corpuscular Hgb 30.8 pg (27.0-32.0); Mean Corpuscular Volume 92.8 fL (80-94); Monocyte# 0.56 X10^3/uL; Monocyte% 7.7 % (0-10); NRBC Flagged by Analyzer 0 % (0-5); Neutrophil % 67.6 % (47-70); Platelet Count 268 K/mm3 (150-450); RBC Distribution Width CV 13.9 % (11.6-14.6); RBC Distribution Width SD 47.1 fl (35.1-43.9); Red Blood Count 4.29 M/mm3 (4.6-6.2); White Blood Count 7.3 K/mm3 (4.4-11.0)
[2022-06-11 13:40] LABS: Bedside Glucose 153 mg/dL (74-106)
[2022-06-11 13:44] LABS: International Normalized Ratio 1.1; Prothrombin Time (Protime)PT. 13.5 SECONDS (11.7-14.9)
[2022-06-11 13:47] LABS: Anion Gap 9 (5-15); BUN 17 mg/dL (7-18); BUN/Creat Ratio 9.8 RATIO (10-20); Calcium,Total 9.2 mg/dL (8.5-10.1); Chloride 109 mmol/L (98-107); Creatinine, Serum 1.73 mg/dL (0.70-1.30); EST Glomerular Filtration Rate 42 mL/min (>60); Est Glom Filt Rate - Afr Amer 51 mL/min (>60); Estimated Creatinine Clearance 48.11 ml/min; Glucose 146 mg/dL (74-106); Sodium Level 141 mmol/L (136-145); Troponin-I HS 6 pg/mL (3.0-78.0)
[2022-06-11] MEDS: 0.9% Normal Saline 1,000 ML 100 ML IV (13:53)
[2022-06-11] MEDS: Ondansetron 4 MG/2 ML Vial IV (14:01)
[2022-06-11] MEDS: fentaNYL 100 MCG/2 ML Ampul 50 MCG IV (14:01)
[2022-06-11] MEDS: Aspirin 81 MG TAB.CHEW 324 MG PO (14:03)
--- NOTE | 2022-06-11 14:14 | RAD_ITS ---
STUDY: X-RAY CHEST REASON FOR EXAM: Male, 67 years old. Neuro deficit, acute, stroke suspected TECHNIQUE: 2 AP portable view of the chest. COMPARISON: May 30, 2021 FINDINGS: The lungs are clear and expanded. Small calcified granuloma of the left midlung field and lateral subpleural region reidentified. No pneumonic consolidations present. There is no demonstrated pleural abnormality. Normal size heart. There are calcified mediastinal lymph nodes. Normal visualized pulmonary arteries. Normal visualized aortic arch and descending thoracic aorta. Normal visualized thoracic spine. Normal visualized ribs, clavicles, and shoulders. There is no demonstrated abnormality of the visualized soft tissue structures of the upper abdomen. RAD/Chest 1 View IMPRESSION: No acute process of the chest Electronically Signed: Aris Bassett MD at 14:42 EST ,
--- NOTE | 2022-06-11 14:53 | HP.PCM.HOS_ITS ---
[facility] - General General Date of Admission: 06/11/22 Date of Service: 06/11/22 Chief Complaint: slurred speech. left sided numbness. [facility] Narrative ZANE YEPEZ, is a 67 M who presents slurred speech and left-sided numbness. Initially, in the emergency room, patient stated that started at 1030 but then was unsure upon further query so he may have woken up this way. Patient had slurred speech and expressive aphasia. He also had left-sided weakness and paresthesias. Patient does have chronic radicular right leg pain due to spinal stenosis and that is unchanged. He is also complaining of left-sided chest pain that is worse when he coughs. That began today as well. The patient was evaluated in the emergency room underwent a head CT, CTA of the head and neck that were unremarkable. But given the fact that he could not twyla in on the specific time of onset it is felt the risks of tPA outweighed the benefits. Her without a clear time of onset. Patient has never had a stroke before. [facility] Medical History Chronic back pain Cirrhosis COPD (chronic obstructive pulmonary disease) Heavy alcohol use Hepatitis C HTN (hypertension) Hypertension Primary osteoarthritis of left knee Smoker Spinal stenosis Thyrotoxicosis Tobacco dependence Home Medications albuterol sulfate 90 mcg/actuation aerosol inhaler 2 puff inhalation Q6H PRN PRN Sob &/Or Wheezing 12/02/13 [History Last Taken 12/14/20] pantoprazole 40 mg tablet,delayed release 40 mg PO DAILY 12/02/13 [History Last Taken 12/15/20] amlodipine 5 mg tablet 5 mg PO DAILY 12/27/18 [History Last Taken 12/15/20] lisinopril 20 mg tablet 20 mg PO DAILY BP 09/04/19 [History Last Taken 12/15/20] gabapentin 600 mg tablet 1 tablet PO TID NERVE PAIN 01/12/20 [History Last Taken 12/15/20] ascorbic acid (vitamin C) 500 mg tablet 500 mg PO DAILY 12/16/20 [History Last Taken 12/15/20] bupropion HCl 300 mg 24 hr tablet, extended release 300 mg PO DAILY 12/16/20 [History Last Taken 12/15/20] cholecalciferol (vitamin D3) 50 mcg (2,000 unit) capsule 50 mcg PO DAILY 12/16/20 [History Last Taken 12/15/20] docusate sodium 100 mg capsule 100 mg PO DAILY CONSTIPATION 12/16/20 [History Last Taken Unknown] flaxseed 1,000 mg capsule 1,000 mg PO DAILY SUPPLEMENT 12/16/20 [History Last Taken 12/15/20] zinc 50 mg tablet 50 mg PO DAILY 12/16/20 [History Last Taken 12/15/20] hydrocodone-acetaminophen 5-325mg 5mg-325mg 1 tab PO Q4H PRN PRN Pain 2 days #10 TABLETS 04/22/21 [Rx Last Taken Unknown] naproxen 500 mg tablet 500 mg PO BID #14 tabs 04/22/21 [Rx Last Taken Unknown] doxycycline monohydrate 100 mg capsule 100 mg PO BID #10 CAPSULES 05/30/21 [Rx Last Taken Unknown] prednisone 20 mg tablet 60 mg PO DAILY #15 TABLETS 05/30/21 [Rx Last Taken Unknown] methimazole 10 mg tablet 5 mg PO DAILY #30 tabs 12/13/21 [Rx Last Taken Unknown] hydrocodone-acetaminophen 5-325mg 5mg-325mg 1 tab PO Q4H PRN PRN Pain 2 days #10 TABLETS 05/11/22 [Rx Last Taken Unknown] Allergy/AdvReac Type Severity Reaction Status Date / Time codeine Allergy Other Verified 06/11/22 13:09 propoxyphene HCl Allergy Other Verified 06/11/22 13:09 [From Darvon] propoxyphene napsylate Allergy Other Verified 06/11/22 13:09 [From Darvocet-N 100] Surgical History Chronic right shoulder pain H/O arthroscopy of left knee H/O right knee surgery S/P hernia repair Social History household members: none Smoking Status: Current every day smoker tobacco type: cigarettes substance use type: does not use ROS ROS Narrative Chronic back pain with pain down his right leg which is chronic. Does have some paresthesias in is index long and ring finger on the right side. Denies that being an issue at night. All review of systems were negative except as mention ed above in the history of present illness and the other review of systems. Vital Signs Vital Signs Vital Signs: 06/11/22 13:09 06/11/22 13:17 06/11/22 13:22 Temperature 36.4 C L 36.6 C Temperature Source Temporal Temporal Pulse Rate 90 88 72 Respiratory Rate 18 16 18 Blood Pressure 150/84 H 135/90 H 135/90 H Blood Pressure Mean 106 105 105 Pulse Ox 100 97 98 Oxygen Delivery Method Room Air Room Air Room Air 06/11/22 13:31 06/11/22 13:31 06/11/22 13:46 Temperature 36.6 C 36.6 C Temperature Source Temporal Temporal Pulse Rate 88 81 Respiratory Rate 16 14 Blood Pressure 135/90 H 141/87 H Blood Pressure Mean 105 105 Pulse Ox 98 98 Oxygen Delivery Method Room Air Room Air Room Air 06/11/22 13:53 06/11/22 14:10 06/11/22 14:10 Temperature 36.6 C 36.6 C Temperature Source Temporal Temporal Pulse Rate 75 72 72 Respiratory Rate 18 16 18 Blood Pressure 141/87 H 128/86 H 128/86 H Blood Pressure Mean 105 100 100 Pulse Ox 96 98 98 Oxygen Delivery Method Room Air Room Air Room Air Weight Weight: 115.5 kg Body Mass Index (BMI) 33.5 Physical Exam Const alert and no apparent distress HEENT normocephalic, head/scalp atraumatic, hearing grossly normal bilaterally and moist oral mucous membranes Eyes PERRL and EOMs intact bilaterally Neck no lymphadenopathy Resp normal respiratory effort, no retractions and no use of accessory muscles Cardio regular rate, regular rhythm, S1 normal heart sound and S2 normal heart sound GI normal to inspection, nondistended, normoactive bowel sounds, soft to palpation, non-tender and non-distended Extremity normal to inspection and full ROM Neuro oriented x3 and CN's II-XII intact bilaterally Neuro Narrative: Slight ataxia On the left. Diminished sensation on the left face, left arm and left leg. Sensorium / Orientation: awake and alert Psych affect normal Results Lab / Micro Data Attestation: I reviewed the patient's lab results. Result Diagrams: 06/11/22 13:20 06/11/22 13:20 Labs: Laboratory Results - last 24 hr 06/11/22 13:20: WBC 7.3, RBC 4.29 L, Hgb 13.2, Hct 39.8 L, MCV 92.8, MCH 30.8, MCHC 33.2, RDW Std Deviation 47.1 H, RDW Coeff of [place] 13.9, Plt Count 268, MPV 10.0, Immature Gran % (Auto) 0.400, Neut % (Auto) 67.6, Lymph % (Auto) 20.4, [place] % (Auto) 7.7, Eos % (Auto) 3.2, Baso % (Auto) 0.7, Absolute Neuts (auto) 4.9, Absolute Lymphs (auto) 1.48, Nucleated RBC % 0 06/11/22 13:20: PT 13.5, INR 1.1, APTT 29.0 06/11/22 13:20: Sodium 141, Potassium 4.0, Chloride 109 H, Carbon Dioxide 23.0, Anion Gap 9, BUN 17, Creatinine 1.73 H, Estim Creat Clear Calc 48.11, Est GFR (MDRD) Af Amer 51 L, Est GFR (MDRD) Non-Af 42 L, BUN/Creatinine Ratio 9.8 L, Glucose 146 H, Calcium 9.2, Troponin I High Sens 6 06/11/22 13:20: POC Glucose 153 H Rhythm Strip Rhythm Strip: Sinus Rhythm Rate: 80 Ectopy: None EKG Initial EKG: Attestation: I personally reviewed and interpreted this EKG as follows: Prior EKG tracings: available for review EKG Ectopy: PVC Radiology Impression Brain CT 06/11/22 13:23 IMPRESSION: 1. Small hypodensity seen on the left side of the zeeshan appears well formed and with parenchymal loss that would indicate an old lacunar infarct, see image 15/43 series 2 and 37/73 series 602. 2. No visualized dense artery sign of the MCA or basilar artery. No visualized sulcal effacement or parenchymal edema. 3. Chronic involutional changes of the brain. N.B. : The above Results were Read Back by Aris Bassett MD to Dr. Jung MD, and understanding confirmed on 06/11/2022 14:01:05 (ET). Electronically Signed: Aris Bassett MD at 14:02 EST Reading Location ID and State: [facility] / [place] , Service support , ADDENDUM: 06/11/22 140 IMPRESSION: 1. Small hypodensity seen on the left side of the zeeshan appears well formed and with parenchymal loss that would indicate an old lacunar infarct, see image 15/43 series 2 and 37/73 series 602. 2. No visualized dense artery sign of the MCA or basilar artery. No visualized sulcal effacement or parenchymal edema. 3. Chronic involutional changes of the brain. N.B. : The above Results were Read Back by Aris Bassett MD to Dr. Jung MD, and understanding confirmed on 06/11/2022 14:01:05 (ET). Electronically Signed: Aris Bassett MD at 14:02 EST , Head/Neck CTA 06/11/22 13:23 IMPRESSION: 1. Negative [place] of [place] without a demonstrated aneurysm or hemodynamically significant stenosis or visualized intra-arterial thrombus. 2. Calcified atherosclerotic plaque of the right vertebral artery at the level of the foramen magnum results in mild luminal stenosis of approximately 20-30%. Otherwise normal aspect of the right vertebral artery. 3. Normal bilateral cervical carotid and vertebral arteries. N.B. : The above Results were Read Back by Aris Bassett MD to Gaetano Siegel and understanding confirmed on 06/11/2022 14:00:05 (ET). Electronically Signed: Aris Bassett MD at 14:01 EST , ADDENDUM: 06/11/22 165 IMPRESSION: 1. Negative [place] without a demonstrated aneurysm or hemodynamically significant stenosis or visualized intra-arterial thrombus. 2. Calcified atherosclerotic plaque of the right vertebral artery at the level of the foramen magnum results in mild luminal stenosis of approximately 20-30%. Otherwise normal aspect of the right vertebral artery. 3. Normal bilateral cervical carotid and vertebral arteries. N.B. : The above Results were Read Back by Aris Bassett MD to Gaetano Siegel and understanding confirmed on 06/11/2022 14:00:05 (ET). Electronically Signed: Aris Bassett MD at 14:01 EST , Chest X-Ray 06/11/22 14:14 IMPRESSION: No acute process of the chest Electronically Signed: Aris Bassett MD at 14:42 EST , Assessment & Plan Assessment/Plan (1) Acute ischemic stroke: PLAN: Onset is unknown patient may have woke up this way but the fact the patient may have woken up this way as it is the reason why tPA was not administered. Patient did receive aspirin in the emergency room. Head CT and CTA of the head and neck were unremarkable Plan is for MRI of the brain, 2D echocardiogram and therapy evaluations. (2) Chest pain: PLAN: Atypical and reproducible Doubt cardiac and suspect musculoskeletal Cycle troponins and check echocardiogram. I do not feel there is any indication to do a stress test at this point in time given the low likelihood that this is actually cardiac (3) Chronic low back pain: PLAN: Secondary to spinal stenosis patient did complain when I asked him how he was doing was back pain going down his right leg which is chronic. Continue with gabapentin Add as needed oxycodone Hold acetaminophen given his history of cirrhosis Cyclobenzaprine PLAN: Plan Chronic conditions * Cirrhosis: Secondary to alcohol and hepatitis C. Patient does drink couple drinks of alcohol per week. Avoid hepatotoxic medications * History of thyrotoxicosis: Check TSH VTE prophylaxis with enoxaparin Case discussed with family member at bedside. Charges/Coding Visit Charges Inpatient E&M: 70311 Init Hosp L3
--- NOTE | 2022-06-11 14:56 | MRI_ITS ---
EXAM: MR HEAD WITHOUT INTRAVENOUS CONTRAST CLINICAL INDICATION: CVA, slurred speech, L sided numbness TECHNIQUE: Multiplanar and multisequence MR images of the brain were obtained without intravenous contrast. This report was created using Taptu report Tap[employer]under technology. COMPARISON: CT head without contrast and CTA head and neck with contrast 06/11/2022. 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 No intra- or extra-axial hemorrhage. No intracranial mass or mass effect. Posterior fossa structures are unremarkable. Ventricles are appropriate for age. No hydrocephalus. Basal cisterns are patent. SELLA: Prominent upper surface of the midline pituitary gland and/or pituitary stalk junction. AUDITORY SYSTEM: Unremarkable. The internal auditory canals are patent. BONES/JOINTS: Unremarkable. No discrete lytic or blastic abnormalities. SINUSES: Unremarkable as visualized. Clear. MASTOID AIR CELLS: Unremarkable as visualized. Clear. ORBITS: Unremarkable as visualized. Both globes, extraocular muscles, optic nerves and retrobulbar fat appear unremarkable. VASCULATURE: Unremarkable as visualized. Normal flow voids in the major intracranial circulation. MRI/Brain without Contrast IMPRESSION: 1. No MRI evidence of acute or subacute ischemic infarct or acute intracranial abnormality. 2. Protruding upper surface of the midline pituitary gland and/or pituitary stalk junction is suspicious for pituitary microadenoma. If clinically warranted, dedicated MRI of the pituitary gland with and without contrast will be helpful for further evaluation. 3. 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 Electronically Signed: Stuart Hearn MD at 9:55 EST ,
--- NOTE | 2022-06-11 14:56 | ECHOD_ITS ---
Reason For Study: TIA/CVA Procedure This was a 2D Doppler, Color Flow transthoracic echocardiogram. Exam performed portable in patient room. Left Ventricle Normal LV size. Left ventricular systolic function is normal. The estimated ejection fraction is 65 %. No regional wall motion abnormalities noted. Right Ventricle Normal RV size. Normal systolic function. Atria Normal left atrium. Normal right atrium. Bubble contrast study negative for right to left interatrial shunt. Mitral Valve Normal mitral valve. Tricuspid Valve Normal tricuspid valve. Mild tricuspid valve insufficiency. Pulmonary artery systolic pressure is 30 mmHg. Aortic Valve Normal aortic valve. Trisinus/trileaflet aortic valve. Pulmonic Valve Normal pulmonic valve. Great Vessels Normal aortic root. The pulmonary artery is normal size. Normal inferior vena cava. Pericardium/Pleural No pericardial effusion. Medication Performed a rapid injection of agitated mix of 9 cc saline and 1cc air to assess for atrial septal defect. MMode/2D Measurements & Calculations LVIDd: 4.8 cm IVSd: 1.1 cm Ao root diam: 3.0 cm LVIDs: 2.6 cm LVPWd: 1.1 cm RVDd: 3.8 cm FS: 46.0 % LAV(MOD-bp): 61.6 ml LVAd ap4: 28.7 cm2 LVAd ap2: 27.9 cm2 LAV(MOD-bp) Indexed: 25.9 ml/m2 LVLd ap4: 8.8 cm LVLd ap2: 9.2 cm LAV(MOD-sp2): 82.5 ml EDV(MOD-sp4): 82.0 ml EDV(MOD-sp2): 74.4 ml LAV(MOD-sp4): 38.8 ml EDV(sp4-el): 79.4 ml EDV(sp2-el): 72.2 ml LVAs ap4: 12.2 cm2 LVAs ap2: 13.5 cm2 LVLs ap4: 6.5 cm LVLs ap2: 7.3 cm ESV(MOD-sp4): 22.0 ml ESV(MOD-sp2): 22.3 ml ESV(sp4-el): 19.5 ml ESV(sp2-el): 21.3 ml EF(MOD-sp4): 73.2 % EF(MOD-sp2): 70.1 % EF(sp4-el): 75.5 % SV(MOD-sp4): 60.0 ml SV(MOD-sp2): 52.2 ml SV(sp4-el): 59.9 ml LA A4 area: 16.0 cm2 LA dimension(2D): 4.5 cm RA A4 area: 14.6 cm2 Doppler Measurements & Calculations MV E max conor: 79.5 cm/sec Lat Peak E' Conor: 15.0 cm/sec Med Peak E' Conor: 9.0 cm/sec MV A max conor: 59.6 cm/sec E/E' lat: 5.3 E/E' med: 8.8 MV E/A: 1.3 Ao V2 max: 159.8 cm/sec LV V1 max: 129.4 cm/sec TR max conor: 255.8 cm/sec Ao max P.2 mmHg LV V1 max P.7 mmHg TR max P.2 mmHg Ao V2 mean: 104.3 cm/sec LV V1 mean P.2 mmHg Ao mean P.0 mmHg LV V1 mean: 83.1 cm/sec Ao V2 VTI: 30.4 cm LV V1 VTI: 27.7 cm ECHO/Echo Complete Interpretation Summary Normal LV size. Left ventricular systolic function is normal. The estimated ejection fraction is 65 %. Bubble contrast study negative for right to left interatrial shunt. Ordering Physician: Man Wheatley Referring Physician: Francis Ahn M.D. Performed By: Arely Weaver, EDWIN, RVT
[2022-06-11 15:48] LABS: Troponin-I HS 7 pg/mL (3.0-78.0)
[2022-06-11] MEDS: oxyCODONE 5 MG Tablet PO ×2 (15:59→21:22)
[2022-06-11] MEDS: 0.9% Normal Saline 1,000 ML 150 ML IV (18:25)
[2022-06-11] MEDS: Gabapentin 600 MG Tablet PO (22:49)
[2022-06-12] VITALS (11 sets, daily range): BP systolic 129–141; BP diastolic 74–95; PULSE 66–90; RESP 12–18; TEMP 36.6–37.2; O2SAT 96–100
[2022-06-12] MEDS: Gabapentin 600 MG Tablet PO ×3 (05:18→20:31)
[2022-06-12 05:22] LABS: Absolute Lymphocyte Count 1.55 X10^3/uL (0.83-4.51); Absolute Neutrophil Count 2.6 X10^3/uL (2.0-7.7); Basophil# 0.06 X10^3/uL; Basophil% 1.2 % (0-1); Eosinophil# 0.23 X10^3/uL; Eosinophils% 4.8 % (0-5); Hematocrit 35.5 % (40-54); Hemoglobin 11.9 g/dL (13.0-16.5); Lymphocyte # 1.55 X10^3/ul (0.83-4.51); Lymphocyte % 32.1 % (19-41); Mean Corp Hgb Conc 33.5 g/dL (32-36); Mean Corpuscular Hgb 31.5 pg (27.0-32.0); Mean Corpuscular Volume 93.9 fL (80-94); Mean Platelet Vol. 10.1 fl (6.2-12.0); Monocyte# 0.33 X10^3/uL; Monocyte% 6.8 % (0-10); NRBC Flagged by Analyzer 0 % (0-5); Neutrophil # 2.64 X10^3/uL (2.7-7.7); Neutrophil % 54.7 % (47-70); Platelet Count 203 K/mm3 (150-450); RBC Distribution Width CV 14.1 % (11.6-14.6); RBC Distribution Width SD 48.6 fl (35.1-43.9); Red Blood Count 3.78 M/mm3 (4.6-6.2); White Blood Count 4.8 K/mm3 (4.4-11.0)
[2022-06-12 05:54] LABS: ALB/GLOB Ratio 0.9 RATIO (0.9-2.4); AST(SGOT) 14 U/L (15-37); Alanine Aminotransfer ALT/SGPT 20 U/L (16-61); Albumin, Serum 2.9 g/dL (3.2-5.0); Alkaline Phosphatase 90 U/L (45-117); Anion Gap 6 (5-15); BUN 17 mg/dL (7-18); BUN/Creat Ratio 12.3 RATIO (10-20); Calcium,Total 8.6 mg/dL (8.5-10.1); Chloride 113 mmol/L (98-107); Cholesterol 157 mg/dL (200); Creatinine, Serum 1.38 mg/dL (0.70-1.30); EST Glomerular Filtration Rate 55 mL/min (>60); Est Glom Filt Rate - Afr Amer 67 mL/min (>60); Estimated Creatinine Clearance 58.57 ml/min; Globulin 3.3 g/dL (2.2-4.2); Glucose 99 mg/dL (74-106); High Density Lipoprotein 62 mg/dL; Potassium 3.9 mmol/L (3.5-5.1); Protein, Total 6.2 g/dL (6.4-8.2); Sodium Level 144 mmol/L (136-145); Triglycerides 66 mg/dL; Very Low Density Lipoprotein 13 mg/dL (5-40)
[2022-06-12] MEDS: oxyCODONE 5 MG Tablet PO ×3 (08:45→20:31)
--- NOTE | 2022-06-12 09:57 | PCM.PN.HOSP ---
Subjective Subjective DOS: 06/12/2022 CC: My eye is blood shot Reports his focal deficits have resolved, right eye with some patchy conjunctival injection but denies any changes in vision or pain in the eye. Denies chest pain or shortness of breath. Objective Data Objective Data Vital Signs: Vital Signs Temp Pulse Resp BP Pulse Ox O2 Del Method O2 Flow Rate 99.0 F 66 16 141/95 H 96 Room Air 5 06/12/22 07:20 06/12/22 07:20 06/12/22 07:20 06/12/22 07:20 06/12/22 07:49 06/12/22 07:49 06/11/22 23:20 Oxygen Flow Rate (L/min) 5 Oxygen Delivery Method Room Air Weight: 108.9 kg Body Mass Index (BMI) 32.5 Intake & Output: Intake and Output for Last 24 Hours 06/10/22 06/11/22 06/12/22 23:59 23:59 23:59 Intake Total 1355 / 1355 1240 / 1240 Balance 1355 / 1355 1240 / 1240 Lab / Micro Data Result Diagrams: 06/12/22 04:48 06/12/22 04:48 Labs: Laboratory Results - last 24 hr 06/11/22 13:20: WBC 7.3, RBC 4.29 L, Hgb 13.2, Hct 39.8 L, MCV 92.8, MCH 30.8, MCHC 33.2, RDW Std Deviation 47.1 H, RDW Coeff of [place] 13.9, Plt Count 268, MPV 10.0, Immature Gran % (Auto) 0.400, Neut % (Auto) 67.6, Lymph % (Auto) 20.4, [place] % (Auto) 7.7, Eos % (Auto) 3.2, Baso % (Auto) 0.7, Absolute Neuts (auto) 4.9, Absolute Lymphs (auto) 1.48, Nucleated RBC % 0 06/11/22 13:20: PT 13.5, INR 1.1, APTT 29.0 06/11/22 13:20: Sodium 141, Potassium 4.0, Chloride 109 H, Carbon Dioxide 23.0, Anion Gap 9, BUN 17, Creatinine 1.73 H, Estim Creat Clear Calc 48.11, Est GFR (MDRD) Af Amer 51 L, Est GFR (MDRD) Non-Af 42 L, BUN/Creatinine Ratio 9.8 L, Glucose 146 H, Calcium 9.2, Troponin I High Sens 6 06/11/22 13:20: POC Glucose 153 H 06/11/22 15:10: Troponin I High Sens 7, TSH 29.20 H 06/12/22 04:48: WBC 4.8, RBC 3.78 L, Hgb 11.9 L, Hct 35.5 L, MCV 93.9, MCH 31.5, MCHC 33.5, RDW Std Deviation 48.6 H, RDW Coeff of [place] 14.1, Plt Count 203, MPV 10.1, Immature Gran % (Auto) 0.400, Neut % (Auto) 54.7, Lymph % (Auto) 32.1, [place] % (Auto) 6.8, Eos % (Auto) 4.8, Baso % (Auto) 1.2 H, Absolute Neuts (auto) 2.6, Absolute Lymphs (auto) 1.55, Nucleated RBC % 0 06/12/22 04:48: Sodium 144, Potassium 3.9, Chloride 113 H, Carbon Dioxide 25.0, Anion Gap 6, BUN 17, Creatinine 1.38 H, Estim Creat Clear Calc 58.57, Est GFR (MDRD) Af Amer 67, Est GFR (MDRD) Non-Af 55 L, BUN/Creatinine Ratio 12.3, Glucose 99, Calcium 8.6, Total Bilirubin 0.20, AST 14 L, ALT 20, Alkaline Phosphatase 90, Total Protein 6.2 L, Albumin 2.9 L, Globulin 3.3, Albumin/Globulin Ratio 0.9, Triglycerides 66, Cholesterol 157, LDL Cholesterol 82, VLDL Cholesterol 13, HDL Cholesterol 62 Radiography Diagnostic Testing: Radiology Impression Brain CT 06/11/22 13:23 IMPRESSION: 1. Small hypodensity seen on the left side of the zeeshan appears well formed and with parenchymal loss that would indicate an old lacunar infarct, see image series 2 and series 602. 2. No visualized dense artery sign of the MCA or basilar artery. No visualized sulcal effacement or parenchymal edema. 3. Chronic involutional changes of the brain. N.B. : The above Results were Read Back by Aris Bassett MD to Dr. Jung MD, and understanding confirmed on 06/11/2022 14:01:05 (ET). Electronically Signed: Aris Bassett MD at 14:02 EST , ADDENDUM: 06/11/22 1409 IMPRESSION: 1. Small hypodensity seen on the left side of the zeeshan appears well formed and with parenchymal loss that would indicate an old lacunar infarct, see image 15/43 series 2 and 37/ series 602. 2. No visualized dense artery sign of the MCA or basilar artery. No visualized sulcal effacement or parenchymal edema. 3. Chronic involutional changes of the brain. N.B. : The above Results were Read Back by Aris Bassett MD to Dr. Jung MD, and understanding confirmed on 06/11/2022 14:01:05 (ET). Electronically Signed: Aris Bassett MD at 14:02 EST , Head/Neck CTA 06/11/22 13:23 IMPRESSION: 1. Negative [place] without a demonstrated aneurysm or hemodynamically significant stenosis or visualized intra-arterial thrombus. 2. Calcified atherosclerotic plaque of the right vertebral artery at the level of the foramen magnum results in mild luminal stenosis of approximately 20-30%. Otherwise normal aspect of the right vertebral artery. 3. Normal bilateral cervical carotid and vertebral arteries. N.B. : The above Results were Read Back by Aris Bassett MD to Gaetano Siegel and understanding confirmed on 06/11/2022 14:00:05 (ET). Electronically Signed: Aris Bassett MD at 14:01 EST , ADDENDUM: 06/11/22 1408 IMPRESSION: 1. Negative [place] without a demonstrated aneurysm or hemodynamically significant stenosis or visualized intra-arterial thrombus. 2. Calcified atherosclerotic plaque of the right vertebral artery at the level of the foramen magnum results in mild luminal stenosis of approximately 20-30%. Otherwise normal aspect of the right vertebral artery. 3. Normal bilateral cervical carotid and vertebral arteries. N.B. : The above Results were Read Back by Aris Bassett MD to Gaetano Siegel and understanding confirmed on 06/11/2022 14:00:05 (ET). Electronically Signed: Aris Bassett MD at 14:01 EST , Chest X-Ray 06/11/22 14:14 IMPRESSION: No acute process of the chest Electronically Signed: Aris Bassett MD at 14:42 EST , Brain MRI 06/11/22 14:56 IMPRESSION: 1. No MRI evidence of acute or subacute ischemic infarct or acute intracranial abnormality. 2. Protruding upper surface of the midline pituitary gland and/or pituitary stalk junction is suspicious for pituitary microadenoma. If clinically warranted, dedicated MRI of the pituitary gland with and without contrast will be helpful for further evaluation. 3. 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 Electronically Signed: Stuart Hearn MD at 9:55 EST , Rhythm Strip Rhythm Strip: Sinus Rhythm Rate: 80 Ectopy: None Physical Exam Const alert and no apparent distress Constitutional Narrative: Oriented HEENT normocephalic and head/scalp atraumatic HEENT Narrative: Does have patchy conjunctival injection in right eye Eyes Eyes Narrative: EOM grossly intact, anicteric, did report blurry vision slightly on far lateral gaze bilaterally Neck supple Resp normal respiratory effort and clear to auscultation bilaterally Cardio regular rate and regular rhythm GI soft to palpation, non-tender and non-distended Extremity Extremity Narrative: No edema appreciated Neuro CN's II-XII intact bilaterally and moves all extremities Psych Psych Narrative: Cooperative Assessment & Plan Assessment/Plan (1) Neurological deficit, transient: (2) Chronic low back pain: PLAN: Plan 67-year-old male with a history of hypertension, hepatitis C, alcohol use, COPD, cirrhosis, and spinal stenosis presented 06/11 with slurred speech and left-sided numbness. Unclear last known normal, had slurred speech and expressive aphasia as well as left-sided weakness paresthesia. He was not deemed a candidate for tPA given unclear onset of time. #Neurological deficits Unclear onset, tPA not administered Did receive aspirin in the ED CT and CTA head and neck were unremarkable 2D echo pending PT/OT MRI obtained and did not show evidence of acute or subacute stroke, did have old lacunar cystic infarct in the left paracentral pontine tegmentum that was unchanged. 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
--- NOTE | 2022-06-12 10:20 | CASEMGMT ---
MARIXA CALLOWAY Face to Face with patient for initial transition planning/care coordination assessment. RN CM introduced self and role at [facility]. Patient lying in bed, alert and oriented, significant other. Patient willing to participate in assessment and is able to answer all questions appropriately. Care providers, pharmacy, and demographics verified. Patient wishes to discharge home, denies need for home health at this time. Patient states he has no further needs or concerns at this time. CM to follow for discharge planning needs that may arise. PCP: Jimy Specialists: King security incident response engineer Preferred Pharmacy:[facility] Insurance: [employer] Prescription Benefit: yes Living Will/HPOA: yes, significant other, Vidhya Olegario LNOK: significant other Living Arrangements: Patient lives with significant other in 2 story home with 4-5 steps to get to his bed and bath. Patient states he is independent and able to ambulate stairs. Transportation: self, significant other DME/HHC: Patient states he has cpap and tens unit at home. Patient states he may benefit from cane at discharge. Patient denies previous HHC or SNF Disposition Plan: Patient to discharge home with family support and follow-up plans in place. Natalie LOPEZ, RN, CM
[2022-06-12] MEDS: Enoxaparin 40 MG/0.4 ML Syringe SC (10:49)
[2022-06-12] MEDS: FLU VACC QS2022-23(6MOS UP)/PF 60 MCG/0.5 ML SYRINGE IM (10:50)
[2022-06-12] MEDS: Docusate Sodium 100 MG Capsule PO (10:50)
[2022-06-12] MEDS: Pantoprazole Sodium 40 MG Tablet PO (10:50)
[2022-06-12] MEDS: buPROPion (XL) 300 MG TABLET.XL PO (10:50)
[2022-06-12] MEDS: Aspirin 81 MG TAB.CHEW PO (10:50)
[2022-06-12] MEDS: Methimazole 5 MG Tablet PO (10:50)
--- NOTE | 2022-06-12 11:23 | TELEMED_ITS ---
[facility] has confirmed receipt of a request for visit. This document confirms receipt of the order initiating the consult. To find the results of the consultation, please view the patient's reports for the scanned Telemed Consult.
[2022-06-12 11:29] LABS: T4 Free Direct 0.36 ng/dL (0.76-1.46)
--- NOTE | 2022-06-12 15:15 | MRI_ITS ---
INDICATION: pituitary tumor -- non contrast done this am EXAMINATION: MRI - MR Brain W/ Contrast TECHNIQUE: Multiplanar and multisequence MR images of the brain were obtained with gadolinium. IV Contrast Dosage and Agent: 22 cc Clariscan COMPARISON: Noncontrast brain MRI earlier same date FINDINGS: BRAIN PARENCHYMA: Postcontrast images show moderate enhancement of the lesion arising from the dorsal aspect of the sella protruding superiorly into the infundibulum with maximum craniocaudal dimension and 1.2 cm, transverse dimension 0.7 cm. No significant extension into the cavernous sinus identified. Remainder the brain parenchyma without abnormal enhancing focus. 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 Electronically Signed: Pilo Francis MD at 16:54 EST ,
[2022-06-12 18:11] LABS: Follicle Stimulating Hormone 25.9 mIU/mL; Luteinizing Hormone 13.5 mIU/mL; Prolactin 15.2 ng/mL
[2022-06-13] VITALS (8 sets, daily range): BP systolic 130–155; BP diastolic 74–98; PULSE 68–98; RESP 14–20; TEMP 36.1–36.6; O2SAT 95–100
[2022-06-13] MEDS: Gabapentin 600 MG Tablet PO ×2 (05:26→13:59)
[2022-06-13 05:50] LABS: Absolute Lymphocyte Count 1.07 X10^3/uL (0.83-4.51); Absolute Neutrophil Count 3.2 X10^3/uL (2.0-7.7); Basophil# 0.05 X10^3/uL; Eosinophil# 0.17 X10^3/uL; Eosinophils% 3.5 % (0-5); Hematocrit 37.4 % (40-54); Hemoglobin 12.4 g/dL (13.0-16.5); Lymphocyte # 1.07 X10^3/ul (0.83-4.51); Lymphocyte % 22.2 % (19-41); Mean Corp Hgb Conc 33.2 g/dL (32-36); Mean Corpuscular Hgb 31.5 pg (27.0-32.0); Mean Corpuscular Volume 94.9 fL (80-94); Monocyte# 0.35 X10^3/uL; Monocyte% 7.3 % (0-10); NRBC Flagged by Analyzer 0 % (0-5); Neutrophil # 3.17 X10^3/uL (2.7-7.7); Neutrophil % 65.8 % (47-70); Platelet Count 212 K/mm3 (150-450); RBC Distribution Width CV 14.2 % (11.6-14.6); RBC Distribution Width SD 49.7 fl (35.1-43.9); Red Blood Count 3.94 M/mm3 (4.6-6.2); White Blood Count 4.8 K/mm3 (4.4-11.0)
[2022-06-13 06:27] LABS: Anion Gap 7 (5-15); BUN 28 mg/dL (7-18); BUN/Creat Ratio 20.4 RATIO (10-20); Calcium,Total 8.8 mg/dL (8.5-10.1); Chloride 108 mmol/L (98-107); Creatinine, Serum 1.37 mg/dL (0.70-1.30); EST Glomerular Filtration Rate 55 mL/min (>60); Est Glom Filt Rate - Afr Amer 67 mL/min (>60); Glucose 101 mg/dL (74-106); Potassium 4.2 mmol/L (3.5-5.1); Sodium Level 141 mmol/L (136-145)
[2022-06-13] MEDS: buPROPion (XL) 300 MG TABLET.XL PO (09:00)
[2022-06-13] MEDS: Pantoprazole Sodium 40 MG Tablet PO (09:00)
[2022-06-13] MEDS: Aspirin 81 MG TAB.CHEW PO (09:00)
[2022-06-13] MEDS: oxyCODONE 5 MG Tablet PO ×2 (09:00→13:59)
[2022-06-13] MEDS: Docusate Sodium 100 MG Capsule PO (09:00)
[2022-06-13] MEDS: Enoxaparin 40 MG/0.4 ML Syringe SC (09:01)
--- NOTE | 2022-06-13 10:38 | CASEMGMT ---
Therapy is recommending OP PT for pt at discharge and pt is requesting script for cane. Pt would like [facility] for therapy and script faxed. Pt [facility] like [facility] and this was sent via [email or web address]. ELLI to follow for any further discharge planning/needs. Otis CALVIN CM
--- NOTE | 2022-06-13 15:13 | DCINST_ITS ---
Discharge Instructions Follow Up Care Test Results: Test results from this visit will be discussed in further detail at your follow- up appointment, if applicable. Discharge Plan Admission Admit Date/Time: 06/11/22 14:46 Primary Reason for Your Visit: Mini stroke Attending Provider: Socorro Laboy Primary Care Provider: Deo Ahn Consulting Providers: Man Wheatley Instructions Patient Instructions: TIA Dc Additional Instructions / Restrictions: *Please take this with you to your next doctors appointment* ?You will need to take 81 mg of aspirin upon discharge indefinitely ? Additionally you will take Plavix 75 mg daily for 3 weeks and then stop. After this he will only be taking the aspirin. These scripts were sent to your preferred pharmacy on file ? Please do not take naproxen/ibuprofen/any other NSAIDs while taking both of these medications. ?Due to the TIA (mini stroke) neurology recommended you be discharged with a 30- day heart monitor. This will be ordered prior to discharge ?It was recommended that you follow-up with neurology as an outpatient to get established due to your mini stroke, information for Dr. Pena provided. Please call upon discharge to schedule a routine appointment. ?Your methimazole was held at the advice of Dr. Benton ? Follow-up with your licensed optician Dr. Benton upon discharge, please call her office upon discharge to schedule your hospital follow-up. You will also need to recheck thyroid levels in 2 weeks, please call the office to obtain an order for lab work in 2 weeks ?Additionally multiple labs were obtained due to to the pituitary adenoma found on your brain scan, you will follow-up with Dr. Benton for these results and further management. ? It was recommended by neurology that you also established with neurosurgery as an outpatient due to the pituitary adenoma that was found. This can be done on a routine basis, follow-up information provided -Please call your primary care provider's office upon discharge to schedule a hospital follow up within 1 week. -For any concerning signs or symptoms please call 911 or proceed to the nearest emergency department Discharge Orders/Prescriptions Prescriptions: New aspirin 81 mg Tablet,Chewable 81 mg PO BREAKFAST 30 Days Qty: 30 0RF clopidogrel [Plavix] 75 mg tablet 75 mg PO DAILY Qty: 21 0RF Continued gabapentin 600 mg tablet 1 tablet PO TID Label Comments: TAKE 1 TABLET THREE TIMES DAILY pantoprazole 40 MG tablet 40 mg PO DAILY Label Comments: acid reflux albuterol sulfate 1 PUFF inhaler 2 puff INHALATION Q6H PRN PRN (Reason: Sob &/Or Wheezing) Label Comments: sob/ wheeze amlodipine 5 MG tablet 5 mg PO DAILY Label Comments: TAKE 1 TABLET BY MOUTH EVERY DAY lisinopril 20 MG tablet 20 mg PO DAILY Label Comments: TAKE 1 TABLET BY MOUTH DAILY bupropion HCl 300 mg tablet extended release 24 hr 300 mg PO DAILY Label Comments: TAKE 1 TABLET ONCE DAILY ascorbic acid (vitamin C) 500 mg Tablet 500 mg PO DAILY docusate sodium 100 mg capsule 100 mg PO DAILY Label Comments: TAKE 1 TABLET ONCE DAILY zinc 50 mg Tablet 50 mg PO DAILY cholecalciferol (vitamin D3) 50 mcg (2,000 unit) Capsule 50 mcg PO DAILY flaxseed 1,000 mg Capsule 1,000 mg PO DAILY hydrocodone-acetaminophen 1 TABLET tablet 1 tab PO Q4H PRN PRN (Reason: Pain) 2 Days Qty: 10 0RF Discontinued methimazole 10 mg tablet 5 mg PO DAILY naproxen 500 MG tablet 500 mg PO BID Other Ambulatory Orders: 30 Day Event Recorder Preventi (Urgent) Timeframe: 1 Day Facility: [facility] - Location: Cardiovascular Services Ordered By: Dr. Socorro Laboy Referrals / Follow Up: Gaetano Young [Other] - See Referral Note (Please establish with neurosurgery on an outpatient basis, you can call Dr. Chairez's office upon discharge to schedule routine appointment or you can be [facility] an [facility] or [facility].) Deo Pena MD [Non-Staff -Ordering Privileges] - See Referral Note (It was recommended that you follow-up with neurology as an outpatient to get established due to your mini stroke, information for Dr. Pena provided. Please call upon discharge to schedule a routine appointment.) Deo Ahn MD [Primary Care Provider] - 06/28/22 9:15 am (Appointment is with Henry Ross N.P.) Disposition Disposition (needs filled in before D/C Order can be placed): Home, Self Care
[2022-06-13] MEDS: Clopidogrel Bisulfate 300 MG Tablet PO (15:30)
--- NOTE | 2022-06-13 15:33 | PCM.DC.SUM ---
Providers Date of Admission: 06/11/22 Date of Discharge: 06/13/22 Primary Care Physician: Dr. Deo Ahn MD Reason For Visit: TIA Diagnosis Discharge Diagnosis (1) Neurological deficit, transient: Status: Acute Code(s): R29.818 - Other symptoms and signs involving the nervous system (2) Chronic low back pain: Status: Chronic Code(s): M54.50 - Low back pain, unspecified; G89.29 - Other chronic pain (3) TIA (transient ischemic attack): Status: Acute Code(s): G45.9 - Transient cerebral ischemic attack, unspecified Plan #Neurological deficits-2/2 TIA #Pituitary macroadenoma #SHARMAINE present on admission resolved #Elevated TSH #Chronic low back pain Medications at Discharge Home Medications albuterol sulfate 90 mcg/actuation aerosol inhaler 2 puff inhalation Q6H PRN PRN Sob &/Or Wheezing 12/02/13 pantoprazole 40 mg tablet,delayed release 40 mg PO DAILY Check with primary doctor 12/02/13 amlodipine 5 mg tablet 5 mg PO DAILY Check with primary doctor 12/27/18 lisinopril 20 mg tablet 20 mg PO DAILY BP 09/04/19 gabapentin 600 mg tablet 1 tablet PO TID NERVE PAIN 01/12/20 ascorbic acid (vitamin C) 500 mg tablet 500 mg PO DAILY supplement 12/16/20 bupropion HCl 300 mg 24 hr tablet, extended release 300 mg PO DAILY Check with primary doctor 12/16/20 cholecalciferol (vitamin D3) 50 mcg (2,000 unit) capsule 50 mcg PO DAILY Check with primary doctor 12/16/20 docusate sodium 100 mg capsule 100 mg PO DAILY CONSTIPATION 12/16/20 flaxseed 1,000 mg capsule 1,000 mg PO DAILY SUPPLEMENT 12/16/20 zinc 50 mg tablet 50 mg PO DAILY Check with primary doctor 12/16/20 hydrocodone-acetaminophen 5-325mg 5mg-325mg 1 tab PO Q4H PRN PRN Pain 2 days #10 TABLETS 04/22/21 aspirin 81 mg chewable tablet 81 mg PO BREAKFAST 30 days #30 tabs 06/13/22 clopidogrel 75 mg tablet (Plavix) 75 mg PO DAILY #21 tabs 06/13/22 Hospital Course Procedures Transthoracic echo Summary of Care Provided Minutes Spent on Discharge: 35 Hospital Course: 67-year-old male with a history of hypertension, hepatitis C, alcohol use, COPD, cirrhosis, and spinal stenosis presented 06/11 with slurred speech and left-sided numbness. Unclear last known normal, had slurred speech and expressive aphasia as well as left-sided weakness paresthesia. He was not deemed a candidate for tPA given unclear onset of time. 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 Additionally had a protruding upper surface of the midline pituitary gland and/or pituitary stalk junction which was suspicious for pituitary microadenoma. TSH also 29.2 on admission and he revealed that he had undergone radioactive iodine treatment with decrease methimazole dose that he was still taking. SHARMAINE also present on admission. Spoke with his cd technician and obtained lab work-up for the pituitary adenoma, MRI with and without contrast demonstrated 1.2 cm pituitary macro adenoma extending into the infundibulum. Echo with EF of 65% with negative bubble study. Neurology did reevaluate and felt he had a TIA, recommended aspirin and addition of Plavix for 3 weeks after loading dose as well as 30-day event monitor. Given his cirrhosis and fair LDL it was deemed by neurology that it was reasonable to hold off on starting a statin. Recommended endocrinology, neurology, neurosurgery outpatient follow-ups. On the day of discharge Mr. Schmitt denied any focal neurological deficits, no chest pain or shortness of breath, no complaints voiced. Discharged home in stable condition with the following instructions: *Please take this with you to your next doctors appointment* ?You will need to take 81 mg of aspirin upon discharge indefinitely ? Additionally you will take Plavix 75 mg daily for 3 weeks and then stop. After this he will only be taking the aspirin. These scripts were sent to your preferred pharmacy on file ? Please do not take naproxen/ibuprofen/any other NSAIDs while taking both of these medications. ?Due to the TIA (mini stroke) neurology recommended you be discharged with a 30-day heart monitor. This will be ordered prior to discharge ?It was recommended that you follow-up with neurology as an outpatient to get established due to your mini stroke, information for Dr. Pena provided. Please call upon discharge to schedule a routine appointment. ?Your methimazole was held at the advice of Dr. Benton ? Follow-up with your cd technician Dr. Benton upon discharge, please call her office upon discharge to schedule your hospital follow-up. You will also need to recheck thyroid levels in 2 weeks, please call the office to obtain an order for lab work in 2 weeks ?Additionally multiple labs were obtained due to to the pituitary adenoma found on your brain scan, you will follow-up with Dr. Benton for these results and further management. ? It was recommended by neurology that you also established with neurosurgery as an outpatient due to the pituitary adenoma that was found. This can be done on a routine basis, follow-up information provided -Please call your primary care provider's office upon discharge to schedule a hospital follow up within 1 week. -For any concerning signs or symptoms please call 911 or proceed to the nearest emergency department Physical Exam Const alert and no apparent distress Constitutional Narrative: Oriented HEENT normocephalic and head/scalp atraumatic Eyes Eyes Narrative: EOM grossly intact, anicteric Neck supple Resp normal respiratory effort and clear to auscultation bilaterally Cardio regular rate and regular rhythm GI soft to palpation, non-tender and non-distended Extremity Extremity Narrative: No edema appreciated Neuro moves all extremities Neuro Narrative: No overt focal deficits appreciated Psych Psych Narrative: Cooperative Weight / BMI Weight Weight: 108.9 kg Body Mass Index (BMI) 32.5 ABG / Lab / Microbiology Data Result Diagrams: 06/13/22 05:22 06/13/22 05:22 Laboratory: Laboratory Results - last 24 hr 06/12/22 17:05: Cortisol 8.00 06/12/22 17:05: FSH 25.9, Luteinizing Hormone 13.5, Prolactin 15.2 06/13/22 05:22: WBC 4.8, RBC 3.94 L, Hgb 12.4 L, Hct 37.4 L, MCV 94.9 H, MCH 31.5, MCHC 33.2, RDW Std Deviation 49.7 H, RDW Coeff of [place] 14.2, Plt Count 212, MPV 10.0, Immature Gran % (Auto) 0.200, Neut % (Auto) 65.8, Lymph % (Auto) 22.2, Harper % (Auto) 7.3, Eos % (Auto) 3.5, Baso % (Auto) 1.0, Absolute Neuts (auto) 3.2, Absolute Lymphs (auto) 1.07, Nucleated RBC % 0 06/13/22 05:22: Sodium 141, Potassium 4.2, Chloride 108 H, Carbon Dioxide 26.0, Anion Gap 7, BUN 28 H, Creatinine 1.37 H, Estim Creat Clear Calc 59.00, Est GFR (MDRD) Af Amer 67, Est GFR (MDRD) Non-Af 55 L, BUN/Creatinine Ratio 20.4 H, Glucose 101, Calcium 8.8 Radiography Diagnostic Testing: Radiology Impression Echocardiogram 06/11/22 14:56 Interpretation Summary Normal LV size. Left ventricular systolic function is normal. The estimated ejection fraction is 65 %. Bubble contrast study negative for right to left interatrial shunt. Ordering Physician: Man Wheatley Referring Physician: Francis Ahn M.D. 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 Electronically Signed: Pilo Francis MD at 16:54 EST Reading Location ID and State: [address] [place] [address] Tel , Service support , D/C Instructions Discharge Diet: No restrictions Meaningful Use Info Meaningful Use Diagnoses (Choose all that apply): None applicable Discharge Plan Admission Admit Date/Time: 06/11/22 14:46 Primary Reason for Your Visit: Mini stroke Attending Provider: Socorro Laboy Primary Care Provider: Deo Ahn Consulting Providers: Man Wheatley Instructions Patient Instructions: TIA Dc Additional Instructions / Restrictions: *Please take this with you to your next doctors appointment* ?You will need to take 81 mg of aspirin upon discharge indefinitely ? Additionally you will take Plavix 75 mg daily for 3 weeks and then stop. After this he will only be taking the aspirin. These scripts were sent to your preferred pharmacy on file ? Please do not take naproxen/ibuprofen/any other NSAIDs while taking both of these medications. ?Due to the TIA (mini stroke) neurology recommended you be discharged with a 30-day heart monitor. This will be ordered prior to discharge ?It was recommended that you follow-up with neurology as an outpatient to get established due to your mini stroke, information for Dr. Pena provided. Please call upon discharge to schedule a routine appointment. ?Your methimazole was held at the advice of Dr. Benton ? Follow-up with your cd technician Dr. Benton upon discharge, please call her office upon discharge to schedule your hospital follow-up. You will also need to recheck thyroid levels in 2 weeks, please call the office to obtain an order for lab work in 2 weeks ?Additionally multiple labs were obtained due to to the pituitary adenoma found on your brain scan, you will follow-up with Dr. Benton for these results and further management. ? It was recommended by neurology that you also established with neurosurgery as an outpatient due to the pituitary adenoma that was found. This can be done on a routine basis, follow-up information provided -Please call your primary care provider's office upon discharge to schedule a hospital follow up within 1 week. -For any concerning signs or symptoms please call 911 or proceed to the nearest emergency department Discharge Orders/Prescriptions Prescriptions: New aspirin 81 mg Tablet,Chewable 81 mg PO BREAKFAST 30 Days Qty: 30 0RF clopidogrel [Plavix] 75 mg tablet 75 mg PO DAILY Qty: 21 0RF Continued gabapentin 600 mg tablet 1 tablet PO TID Label Comments: TAKE 1 TABLET THREE TIMES DAILY pantoprazole 40 MG tablet 40 mg PO DAILY Label Comments: acid reflux albuterol sulfate 1 PUFF inhaler 2 puff INHALATION Q6H PRN PRN (Reason: Sob &/Or Wheezing) Label Comments: sob/ wheeze amlodipine 5 MG tablet 5 mg PO DAILY Label Comments: TAKE 1 TABLET BY MOUTH EVERY DAY lisinopril 20 MG tablet 20 mg PO DAILY Label Comments: TAKE 1 TABLET BY MOUTH DAILY bupropion HCl 300 mg tablet extended release 24 hr 300 mg PO DAILY Label Comments: TAKE 1 TABLET ONCE DAILY ascorbic acid (vitamin C) 500 mg Tablet 500 mg PO DAILY docusate sodium 100 mg capsule 100 mg PO DAILY Label Comments: TAKE 1 TABLET ONCE DAILY zinc 50 mg Tablet 50 mg PO DAILY cholecalciferol (vitamin D3) 50 mcg (2,000 unit) Capsule 50 mcg PO DAILY flaxseed 1,000 mg Capsule 1,000 mg PO DAILY hydrocodone-acetaminophen 1 TABLET tablet 1 tab PO Q4H PRN PRN (Reason: Pain) 2 Days Qty: 10 0RF Discontinued methimazole 10 mg tablet 5 mg PO DAILY naproxen 500 MG tablet 500 mg PO BID Other Ambulatory Orders: 30 Day Event Recorder Preventi (Urgent) Timeframe: 1 Day Facility: [facility] - Location: Cardiovascular Services Ordered By: Dr. Socorro Laboy Referrals / Follow Up: Gaetano Young [Other] - See Referral Note (Please establish with neurosurgery on an outpatient basis, you can call Dr. Chairez's office upon discharge to schedule routine appointment or you can be referred [facility] an [facility].) Deo Pena MD [Non-Staff -Ordering Privileges] - See Referral Note (It was recommended that you follow-up with neurology as an outpatient to get established due to your mini stroke, information for Dr. Pena provided. Please call upon discharge to schedule a routine appointment.) Deo Ahn MD [Primary Care Provider] - 06/28/22 9:15 am (Appointment is with Henry Ross N.P.) Disposition Disposition (needs filled in before D/C Order can be placed): Home, Self Care Charges/Coding Visit Charges Inpatient E&M: 24646 Disch Hosp
[2022-06-18 17:07] LABS: Testosterone, Free 3.92 ng/dL (5.00-21.00)
[2022-06-19 10:30] LABS: Adrenocorticotropic Hormone 36.1 pg/mL (7.2-63.3); Insulin Like Growth Factor 68 ng/mL (64-240); Testosterone, Total 145 ng/dL (264-916)
== END 2022-06-13 16:15 | disposition home or self-care (01) | DRG 69 ==
LOC: ED 14:00 → PCU 14:46
PROVIDERS: Nurse Practitioner; Emergency Provider Emergency Medicine; PCP Family Medicine; Visit Provider Internal Medicine
DX: G45.9 Transient cerebral ischemic attack, unspecified (principal); N17.9 Acute kidney failure, unspecified; R47.01 Aphasia; D35.2 Benign neoplasm of pituitary gland; K70.30 Alcoholic cirrhosis of liver without ascites; J44.9 Chronic obstructive pulmonary disease, unspecified; H10.9 Unspecified conjunctivitis; F17.210 Nicotine dependence, cigarettes, uncomplicated; I10 Essential (primary) hypertension; M48.00 Spinal stenosis, site unspecified; G89.29 Other chronic pain; R29.898 Other symptoms and signs involving the musculoskeletal system; R47.81 Slurred speech; R29.810 Facial weakness; R07.9 Chest pain, unspecified; R20.2 Paresthesia of skin; Z79.899 Other long term (current) drug therapy; R47.1 Dysarthria and anarthria; Z86.19 Personal history of other infectious and parasitic diseases; Z23 Encounter for immunization
CPT/HCPCS: 36415; 70450; 70496; 70498; 70551; 70552; 71045; 80048; 80053; 80061; 82024; 82533; 82962; 83001; 83002; 84146; 84305; 84402; 84403; 84439; 84443; 84484; 85025; 85610; 85730; 92523; 92610; 93005; 93306; 94762; 97162; 97166; 97530; 97535; 99285; A9575; G0008; J2997; J7030; Q9967; 90686; A4216; J2405; J3490

== ENCOUNTER 2022-07-17 22:57 | Emergency (ER) | payer MEDICARE, MEDICAID, SELFPAY ==
[2022-07-17 22:59] VITALS: BP 129/82; PULSE 86; RESP 16; TEMP 36.6; O2SAT 100; BMI 27.1
--- NOTE | 2022-07-17 23:01 | ED.RN ---
PT AMBULATES IN, STATES HE IS CONCERNED HIS BLOOD PRESSURE IS HIGH AND IS HAVING ANOTHER STROKE. COMPLAINTS OF HEADACHE AND CHEST PAIN, WEARING HOLTER MONITOR. LEFT CAR AT ED DOOR, UNABLE TO PARK CAR AND AMBULATE BACK UP HILL PER PT. HRO PARKED CAR. AFTER VITALS OBTAINED PT STATES HE REALLY ONLY WANTED BLOOD PRESSURE CHECKED AND ADAMANTLY REFUSES TO BE EVALUATED IN ED. THIS RN DISCUSSED RISKS OF HAVING THESE SYMPTOMS AND NOT BEING EVALUATED, PT VOICES UNDERSTANDING OF POSSIBLE LIFE THREATENING CONDITION BUT CONTINUES TO REFUSE FURTHER ASSESSMENT. PT AMBULATED OUT OF DEPT WITHOUT DIFFICULTY.
== END 2022-07-17 23:07 | disposition left against medical advice (07) ==
PROVIDERS: PCP Family Medicine
DX: Z53.21 Procedure and treatment not carried out due to patient leaving prior to being seen by health care provider (principal)

== ENCOUNTER → 2022-08-11 | Outpatient (CLI) | payer MEDICARE, MEDICAID, SELFPAY ==
[2022-08-11 12:27] LABS: Basophil% 1.7 % (0-1); Eosinophil# 0.33 X10^3/uL; Eosinophils% 5.7 % (0-5); Hematocrit 43.1 % (40-54); Hemoglobin 14.3 g/dL (13.0-16.5); Lymphocyte % 32.6 % (19-41); Mean Corp Hgb Conc 33.2 g/dL (32-36); Mean Corpuscular Hgb 31.8 pg (27.0-32.0); Mean Platelet Vol. 10.9 fl (6.2-12.0); Monocyte# 0.45 X10^3/uL; Monocyte% 7.7 % (0-10); NRBC Flagged by Analyzer 0 % (0-5); Neutrophil # 3.03 X10^3/uL (2.7-7.7); Platelet Count 217 K/mm3 (150-450); RBC Distribution Width CV 14.1 % (11.6-14.6); RBC Distribution Width SD 49.7 fl (35.1-43.9); Red Blood Count 4.49 M/mm3 (4.6-6.2); White Blood Count 5.8 K/mm3 (4.4-11.0)
[2022-08-11 13:12] LABS: ALB/GLOB Ratio 1.1 RATIO (0.9-2.4); AST(SGOT) 55 U/L (15-37); Alanine Aminotransfer ALT/SGPT 62 U/L (16-61); Albumin, Serum 3.9 g/dL (3.2-5.0); Alkaline Phosphatase 106 U/L (45-117); Anion Gap 5 (5-15); BUN 19 mg/dL (7-18); Chloride 111 mmol/L (98-107); Cholesterol 240 mg/dL (200); Creatinine, Serum 1.58 mg/dL (0.70-1.30); EST Glomerular Filtration Rate 47 mL/min (>60); Est Glom Filt Rate - Afr Amer 57 mL/min (>60); Follicle Stimulating Hormone 29.1 mIU/mL; Free T3 0.6 pg/mL (2.18-3.98); Globulin 3.7 g/dL (2.2-4.2); Glucose 107 mg/dL (74-106); High Density Lipoprotein 74 mg/dL; Luteinizing Hormone 13.5 mIU/mL; Potassium 4.2 mmol/L (3.5-5.1); Prolactin 24.3 ng/mL; Protein, Total 7.6 g/dL (6.4-8.2); Sodium Level 143 mmol/L (136-145); T4 Free Direct 0.24 ng/dL (0.76-1.46); Triglycerides 88 mg/dL; Very Low Density Lipoprotein 18 mg/dL (5-40)
[2022-08-18 12:08] LABS: Testosterone, % Free 2.27 % (1.50-4.20); Testosterone, Free 3.93 ng/dL (5.00-21.00)
[2022-08-18 13:03] LABS: Adrenocorticotropic Hormone 59.7 pg/mL (7.2-63.3); Insulin Like Growth Factor 73 ng/mL (64-240); Testosterone, Total 173 ng/dL (264-916)
== END | disposition home or self-care (01) ==
LOC: BIMLAB 08:45
PROVIDERS: PCP Family Medicine; Referring Provider Internal Medicine Endocrinology, Diabetes & Metabolism; Visit Provider Internal Medicine Endocrinology, Diabetes & Metabolism
DX: E78.2 Mixed hyperlipidemia (principal); E05.90 Thyrotoxicosis, unspecified without thyrotoxic crisis or storm; Z13.0 Encounter for screening for diseases of the blood and blood-forming organs and certain disorders involving the immune mechanism
CPT/HCPCS: 36415; 80053; 80061; 82024; 82533; 83001; 83002; 84146; 84305; 84402; 84403; 84439; 84443; 84481; 85025

== ENCOUNTER 2022-10-06 16:31 | Emergency (ER) | payer MEDICARE, MEDICAID, SELFPAY ==
[2022-10-06 16:32] VITALS: BP 145/92; PULSE 79; RESP 16; TEMP 36.6; O2SAT 98; BMI 35.8
--- NOTE | 2022-10-06 16:55 | EDS_ITS ---
HPI History of Present Illness Chief Complaint: Back Informant: patient Narrative Narrative: Patient presents with exacerbation of back pain. He states he has had off-and-on back pain for many years. Last time he had epidural injections were about 4 years ago. He has never had surgery. He has been told that he will likely need surgery somewhere in the future. He has known spinal stenosis as well as significant disc narrowing down at L5 area. He states he was feeling in his normal state of health until today somewhere between 12 and 1. 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 He had to load 2 people onto his van that were in excess of 350 pounds. He had to wheel them up onto a small ramp. Each time he did it the pain got worse. Pain is in his lower back mostly on the right. It does radiate into the right buttock and in the right anterior lateral thigh. It does not go past or even to the mid thigh. He has no radiation into the knee or further. He does not have weakness. He denies bowel or bladder dysfunction. He has had radiation to this area before. This is a pretty typical pattern. He does take gabapentin routinely. I also reviewed his prior chart. He had x- rays of his back less than 6 months ago that show some arthritic chronic changes but no acute process. He has no history of cancer. He has no history of recent acute impact type trauma. He has not had fevers chills or recent infections. He has allergies to Darvocet, Darvon and codeine but he can tolerate hydrocodone. I did review his old [place] online prescribing report and his last narcotic was back in April 2022. [facility] Medical History Chronic back pain Cirrhosis COPD (chronic obstructive pulmonary disease) Heavy alcohol use Hepatitis C HTN (hypertension) Hypertension Hypothyroidism (acquired) Physical exam, pre-employment Pituitary macroadenoma Primary osteoarthritis of left knee Smoker Spinal stenosis Thyrotoxicosis Tobacco dependence Home Medications albuterol sulfate 90 mcg/actuation aerosol inhaler 2 puff inhalation Q6H PRN PRN Sob &/Or Wheezing 12/02/13 [History Last Taken 12/14/20] pantoprazole 40 mg tablet,delayed release 40 mg PO DAILY Check with primary doctor 12/02/13 [History Last Taken 06/11/22] amlodipine 5 mg tablet 5 mg PO DAILY Check with primary doctor 12/27/18 [History Last Taken 12/15/20] lisinopril 20 mg tablet 20 mg PO DAILY BP 09/04/19 [History Last Taken 06/11/22] gabapentin 600 mg tablet 1 tablet PO TID NERVE PAIN 01/12/20 [History Last Taken 12/15/20] ascorbic acid (vitamin C) 500 mg tablet 500 mg PO DAILY supplement 12/16/20 [History Last Taken 12/15/20] bupropion HCl 300 mg 24 hr tablet, extended release 300 mg PO DAILY Check with primary doctor 12/16/20 [History Last Taken 06/11/22] cholecalciferol (vitamin D3) 50 mcg (2,000 unit) capsule 50 mcg PO DAILY Check with primary doctor 12/16/20 [History Last Taken 06/11/22] docusate sodium 100 mg capsule 100 mg PO DAILY CONSTIPATION 12/16/20 [History Last Taken 06/11/22] flaxseed 1,000 mg capsule 1,000 mg PO DAILY SUPPLEMENT 12/16/20 [History Last Taken 06/11/22] zinc 50 mg tablet 50 mg PO DAILY Check with primary doctor 12/16/20 [History Last Taken 06/11/22] hydrocodone-acetaminophen 5-325mg 5mg-325mg 1 tab PO Q4H PRN PRN Pain 2 days #10 TABLETS 04/22/21 [Rx Last Taken Unknown] aspirin 81 mg chewable tablet 81 mg PO BREAKFAST 30 days #30 tabs 06/13/22 [Rx Last Taken Unknown] levothyroxine 112 mcg tablet 112 mcg PO DAILY #30 tabs 08/11/22 [Rx Last Taken Unknown] hydrocodone-acetaminophen 5-325mg 5mg-325mg 1 tab PO Q6H PRN PRN Pain 3 days #10 TABLETS 10/06/22 [Rx Last Taken Unknown] prednisone 20 mg tablet 60 mg PO DAILY #15 TABLETS 10/06/22 [Rx Last Taken Unknown] Allergy/AdvReac Type Severity Reaction Status Date / Time codeine Allergy Other Verified 10/06/22 16:34 propoxyphene HCl Allergy Other Verified 10/06/22 16:34 [From Darvon] propoxyphene napsylate Allergy Other Verified 10/06/22 16:34 [From Darvocet-N 100] Surgical History Chronic right shoulder pain H/O arthroscopy of left knee H/O right knee surgery S/P hernia repair Social History household members: none Smoking Status: Current every day smoker tobacco type: cigarettes substance use type: does not use ROS ROS ED Constitutional Constitutional ED: Denies chills, fever(s) or subjective Eyes Eyes: Denies change in vision ENT ENT ED: Denies sore throat Cardiovascular Cardiovascular: Denies chest pain or palpitations Respiratory/Chest Respiratory/Chest: Denies dyspnea Gastrointestinal Gastrointestinal: Denies abdominal pain, constipation, diarrhea, melena, nausea or vomiting Genitourinary Genitourinary ED: Denies dysuria, hematuria or urinary frequency Musculoskeletal Musculoskeletal: Reports back pain; Denies neck pain Integumentary Denies rash Neurologic Neurologic: Denies headache(s), paresthesias or weakness Endocrine Endocrinology: Denies polydipsia or polyuria Hematologic/Lymphatic Hematologic/Lymphatic: Reports other Details: Patient was on Plavix last year but has been off of it for some time now. He only takes baby aspirin for antic oagulation. ; Denies easy bleeding or easy bruising Allergic/Immunologic Allergic/Immunologic ED: Denies urticaria EXAM Physical Exam Narrative Exam Narrative: Patient is awake and alert. He did walk back to the room himself. He leans forward with a slightly antalgic gait but no ataxia. No indication of actual weakness. HEENT shows no trauma Neck shows no pain with range of motion Lungs are clear bilaterally with normal oxygenation. No pain with a deep breath. Heart is regular I hear no murmur. Abdomen is mildly obese but benign. Back does show some paraspinal tenderness more on the right than the left and mostly lower. I see no rashes. No erythema or mass. He does have some sciatic notch tenderness in the right buttock area. I get no tenderness further down the leg. Extremities show no rash swelling or tenderness. Pulses are normal. No edema cords or asymmetry. Neurologic: He is awake alert appropriate. There is no sign of weakness or numbness. No buttock or back area numbness. Const Vital Signs: 10/06/22 16:32 Temperature 98 F Temperature Source Temporal Pulse Rate 79 Respiratory Rate 16 Blood Pressure 145/92 H Blood Pressure Mean 109 Pulse Ox 98 Oxygen Delivery Method Room Air MDM MDM MDM Narrative Medical decision making narrative: This patient has a known history of recurrent back pain. He has an activity that stressed his back today. After that he slowly developed worsening pain with some radicular symptoms. He has had all the symptoms including the radiculopathy before. He has no weakness. He has no red flag of back pain other than his age. But he has had x-rays within the last 6 months and has chronic problems and this is the same. I do not think repeat imaging is needed today. I will give him injectable meds here as well as meds to go. He states he has gotten good results with steroids in the past so I will start these. I will also give him a few hydrocodone as I think this is safer than nonsteroidals in this patient especially with starting prednisone. He is not a diabetic. We discussed returning with weakness, numbness, fevers worsening pain abdominal pain or any other concerns. Discharge Plan Triage Chief Complaint: Back ED Provider: Adria Landeros Dx/Rx/DC Orders Clinical Impression: Low back pain radiating to right lower extremity Instructions: ED Back Pain (Acute or Chronic) Prescriptions: New hydrocodone-acetaminophen [hydrocodone-acetaminophen] 5-325 mg tablet 1 tab PO Q6H PRN PRN (Reason: Pain) 3 Days Qty: 10 0RF prednisone 20 mg tablet 60 mg PO DAILY Qty: 15 0RF No Action gabapentin 600 mg tablet 1 tablet PO TID Label Comments: TAKE 1 TABLET THREE TIMES DAILY pantoprazole 40 MG tablet 40 mg PO DAILY Label Comments: acid reflux albuterol sulfate 1 PUFF inhaler 2 puff INHALATION Q6H PRN PRN (Reason: Sob &/Or Wheezing) Label Comments: sob/ wheeze amlodipine 5 MG tablet 5 mg PO DAILY Label Comments: TAKE 1 TABLET BY MOUTH EVERY DAY lisinopril 20 MG tablet 20 mg PO DAILY Label Comments: TAKE 1 TABLET BY MOUTH DAILY bupropion HCl 300 mg tablet extended release 24 hr 300 mg PO DAILY Label Comments: TAKE 1 TABLET ONCE DAILY ascorbic acid (vitamin C) 500 mg Tablet 500 mg PO DAILY docusate sodium 100 mg capsule 100 mg PO DAILY Label Comments: TAKE 1 TABLET ONCE DAILY zinc 50 mg Tablet 50 mg PO DAILY cholecalciferol (vitamin D3) 50 mcg (2,000 unit) Capsule 50 mcg PO DAILY flaxseed 1,000 mg Capsule 1,000 mg PO DAILY hydrocodone-acetaminophen 1 TABLET tablet 1 tab PO Q4H PRN PRN (Reason: Pain) 2 Days Qty: 10 0RF aspirin 81 mg Tablet,Chewable 81 mg PO BREAKFAST 30 Days Qty: 30 0RF levothyroxine 112 mcg tablet 112 mcg PO DAILY Qty: 30 5RF Primary Care Provider: Deo Ahn Referrals: Deo Ahn MD [Primary Care Provider] - 3-5 Days Disposition Disposition: Home, Self Care
[2022-10-06] MEDS: Morphine 4 MG/ML Syringe IM (17:33)
[2022-10-06] MEDS: Ondansetron ODT 4 MG Tablet PO (17:33)
== END 2022-10-06 18:07 | disposition home or self-care (01) ==
LOC: ED 17:12
PROVIDERS: Emergency Provider Emergency Medicine; PCP Family Medicine; Visit Provider Emergency Medicine
DX: M54.50 Low back pain, unspecified (principal); F17.210 Nicotine dependence, cigarettes, uncomplicated
CPT/HCPCS: 96372; 99283

== ENCOUNTER → 2022-10-09 | Outpatient (CLI) | payer MEDICARE, MEDICAID, SELFPAY | END | disposition home or self-care (01) | PROVIDERS: PCP Family Medicine; Referring Provider Internal Medicine Endocrinology, Diabetes & Metabolism; Visit Provider Internal Medicine Endocrinology, Diabetes & Metabolism | DX: E83.51 Hypocalcemia (principal) | CPT/HCPCS: 36415; 84439; 84443 ==

== ENCOUNTER → 2022-11-20 | Outpatient (CLI) | payer MEDICARE, MEDICAID, SELFPAY ==
--- NOTE | 2022-11-20 14:00 | ART_ITS ---
Reason For Study: Absent Pedal Pulse Procedure A bilateral lower extremity continuous wave Doppler with analog waveform analysis and ankle brachial indexes. Left Segmental Pressures Left brachial= 140mmHg. Left posterior tibial artery = 155mmHg. Left dorsalis pedis artery = 149mmHg. Left digit = 83 mmHg. The left posterior tibial artery waveforms are triphasic. The left dorsalis pedis waveforms are triphasic. Right Segmental Pressures Right brachial= 141mmHg. Right posterior tibial artery = 114mmHg. Right dorsalis pedis artery = 112mmHg. Right digit = 83 mmHg. The right posterior tibial artery waveforms are triphasic. The right dorsalis pedis waveforms are triphasic. Indices The right ankle brachial index by the posterior tibial artery is 0.81. The right ankle brachial index by the dorsalis pedis is 0.79. The right digital-brachial index is 0.59. The left ankle brachial index by the posterior tibial artery is 1.10. The left ankle brachial index by the dorsalis pedis is 1.06. The left digital-brachial index is 0.59. VL/Ankle Brachial Index Interpretation Summary Abnormal right lower extremity posterior tibialis and dorsalis pedis ankle-brac hial indices of 0.81 and 0.79 consistent with moderate occlusive disease. Of note is that the right posterior tibialis and dorsalis pedis however have normal triphasic Doppler waveforms. The right digital brachial index is abnormal at 0.59. Left lower extremity has normal posterior tibialis and dorsalis pedis ankle-bra chial index of 1.1 and 1.06 respectively. The left PT and DP Doppler waveforms are normal and trip hasic The left digital brachial index however again is abnormal at 0.59 consistent wi th small vessel disease Previous studies are not available for comparison. Ordering Physician: Deo Pena Referring Physician: [place]. Herrera Performed By: Tod Toribio RVT
== END | disposition home or self-care (01) ==
LOC: CVS 13:56
PROVIDERS: PCP Internal Medicine; Referring Provider Psychiatry & Neurology Neurology; Visit Provider Psychiatry & Neurology Neurology
DX: R09.89 Other specified symptoms and signs involving the circulatory and respiratory systems (principal)
CPT/HCPCS: 93922

== ENCOUNTER → 2022-11-30 | Outpatient (CLI) | payer MEDICARE, MEDICAID, SELFPAY ==
[2022-11-30 12:12] LABS: Hematocrit 45.4 % (40-54); Hemoglobin 14.6 g/dL (13.0-16.5); Mean Corp Hgb Conc 32.2 g/dL (32-36); Mean Corpuscular Hgb 30.7 pg (27.0-32.0); Mean Corpuscular Volume 95.4 fL (80-94); Mean Platelet Vol. 11.3 fl (6.2-12.0); Platelet Count 261 K/mm3 (150-450); RBC Distribution Width CV 13.3 % (11.6-14.6); Red Blood Count 4.76 M/mm3 (4.6-6.2); White Blood Count 7.2 K/mm3 (4.4-11.0)
[2022-11-30 12:39] LABS: ALB/GLOB Ratio 0.8 RATIO (0.9-2.4); AST(SGOT) 21 U/L (15-37); Alanine Aminotransfer ALT/SGPT 27 U/L (16-61); Albumin, Serum 3.3 g/dL (3.2-5.0); Alkaline Phosphatase 115 U/L (45-117); Anion Gap 8 (5-15); BUN 16 mg/dL (7-18); BUN/Creat Ratio 9.2 RATIO (10-20); Chloride 112 mmol/L (98-107); Creatinine, Serum 1.73 mg/dL (0.70-1.30); EST Glomerular Filtration Rate 42 mL/min (>60); Est Glom Filt Rate - Afr Amer 51 mL/min (>60); Follicle Stimulating Hormone 31.9 mIU/mL; Free T3 1.5 pg/mL (2.18-3.98); Globulin 4.1 g/dL (2.2-4.2); Glucose 111 mg/dL (74-106); Luteinizing Hormone 17.6 mIU/mL; Potassium 3.8 mmol/L (3.5-5.1); Prolactin 22.8 ng/mL; Protein, Total 7.4 g/dL (6.4-8.2); Sodium Level 145 mmol/L (136-145); T4 Free Direct 0.64 ng/dL (0.76-1.46)
[2022-11-30 12:43] LABS: Vitamin B12 548 pg/mL (211-911)
[2022-12-03 20:07] LABS: Testosterone, % Free 0.79 % (1.50-4.20); Testosterone, Total 215 ng/dL (264-916)
[2022-12-05 17:07] LABS: Adrenocorticotropic Hormone 52.2 pg/mL (7.2-63.3); Free Kappa Light Chains 33.3 mg/L (3.3-19.4); Free Lambda Light Chains 21.2 mg/L (5.7-26.3); Vitamin B1, Thiamine 125.6 nmol/L (66.5-200.0)
== END | disposition home or self-care (01) ==
LOC: BIMLAB 08:26
PROVIDERS: Internal Medicine Endocrinology, Diabetes & Metabolism; PCP Internal Medicine; Referring Provider Psychiatry & Neurology Neurology; Visit Provider Psychiatry & Neurology Neurology
DX: D35.2 Benign neoplasm of pituitary gland (principal); G62.9 Polyneuropathy, unspecified; M54.50 Low back pain, unspecified; E05.90 Thyrotoxicosis, unspecified without thyrotoxic crisis or storm; R86.1 Abnormal level of hormones in specimens from male genital organs
CPT/HCPCS: 36415; 80053; 82024; 82533; 82607; 82746; 83001; 83002; 83003; 83883; 84146; 84402; 84403; 84425; 84439; 84443; 84481; 85027

== ENCOUNTER → 2022-12-05 | Outpatient (CLI) | payer MEDICARE, MEDICAID, SELFPAY ==
--- NOTE | 2022-12-05 10:31 | MRI_ITS ---
HISTORY: Follow-up assessment of pituitary macroadenoma. TECHNIQUE: Multiplanar and multisequence MR images of the brain were obtained before and after the intravenous administration of 22 mL Clariscan. 342 images. COMPARISON: 06/12/2022, CT 06/11/2022. FINDINGS: PITUITARY GLAND: 8 x12 mm enhancing lesion arising from the pituitary gland extending to the pituitary infundibulum/stalk. No mass effect or deviation of the optic chiasm. No cavernous sinus encasement. BRAIN PARENCHYMA: No other enhancing lesion in the brain parenchyma. Mild periventricular white matter changes again seen. Chronic lacunar infarct in the left zeeshan. No abnormal focus of restricted diffusion. No acute intracranial hemorrhage identified. CSF SPACES: Mild generalized volume loss. No significant midline shift or other mass effect.No extra-axial fluid collection. VASCULAR SYSTEM: Major intracranial flow voids are maintained. PARANASAL SINUSES AND MASTOID AIR CELLS: No significant air fluid levels. ORBITS: Symmetric contents. MRI/Brain W/WO Contrast IMPRESSION: No significant interval change in size of 1.2 cm pituitary macroadenoma. Mild chronic involutional and white matter changes. Electronically Signed: Maggie Bradley MD at 12:22 EDT ,
--- NOTE | 2022-12-05 11:44 | US_ITS ---
STUDY: ABDOMINAL ULTRASOUND - RIGHT UPPER QUADRANT REASON FOR VISIT: Male, 67 years old fatty liver TECHNIQUE: Ultrasound evaluation of the right upper quadrant was performed with real-time and static jamison-scale imaging. TECHNICAL QUALITY: Limited. Examination limited due to a combination of factors including obesity and bowel gas. COMPARISON: None. FINDINGS: Liver: The liver measures 17.1 cm. There is increased echogenicity consistent with fatty infiltration. The bile ducts are within normal limits. There is hepatic color flow. The direction of portal flow is hepatopetal. There is no demonstrated mass lesion. Gallbladder: Normal distended gallbladder. The gallbladder wall measures 2.1 mm. There is a negative sonographic Woods''s sign. There is no pericholecystic fluid. There are no gallstones. Common Bile Duct (C.B.D.): The common bile duct measures 3.4 mm. Pancreas: There is nonvisualization of the pancreas. Right Kidney: Normal size of the right kidney. The right kidney measures 10.7 cm. Normal renal cortex. The right cortex measures 1.6 cm. There is no demonstrated renal mass or cyst. There is no right hydronephrosis. US/Liver IMPRESSION: Limited as above. No definite acute abnormality. Electronically Signed: Clayton Lopez MD at 20:51 EDT ,
== END | disposition home or self-care (01) ==
LOC: MRI 10:29
PROVIDERS: PCP Internal Medicine; Referring Provider Internal Medicine; Visit Provider Internal Medicine
DX: D35.2 Benign neoplasm of pituitary gland (principal); K76.0 Fatty (change of) liver, not elsewhere classified
CPT/HCPCS: 70553; 76705; A9575

== ENCOUNTER → 2023-01-15 | Outpatient (CLI) | payer MEDICARE, MEDICAID, SELFPAY ==
[2023-01-15 13:38] LABS: T4 Free Direct 1.17 ng/dL (0.76-1.46); Thyroid Stim Hormone (TSH) 2.08 uIU/mL (0.358-3.74)
== END | disposition home or self-care (01) ==
LOC: BIMLAB 08:38
PROVIDERS: PCP Internal Medicine; Referring Provider Internal Medicine Endocrinology, Diabetes & Metabolism; Visit Provider Internal Medicine Endocrinology, Diabetes & Metabolism
DX: E03.9 Hypothyroidism, unspecified (principal)
CPT/HCPCS: 36415; 84439; 84443

== ENCOUNTER → 2023-04-25 | Outpatient (CLI) | payer MEDICARE, MEDICAID, SELFPAY ==
[2023-04-25 16:40] LABS: Absolute Lymphocyte Count 1.58 X10^3/uL (0.83-4.51); Absolute Neutrophil Count 3.2 X10^3/uL (2.0-7.7); Basophil# 0.05 X10^3/uL; Basophil% 0.9 % (0-1); Eosinophil# 0.21 X10^3/uL; Eosinophils% 3.8 % (0-5); Hematocrit 47.9 % (40-54); Hemoglobin 15.2 g/dL (13.0-16.5); Lymphocyte # 1.58 X10^3/ul (0.83-4.51); Lymphocyte % 28.4 % (19-41); Mean Corp Hgb Conc 31.7 g/dL (32-36); Mean Corpuscular Hgb 29.7 pg (27.0-32.0); Mean Corpuscular Volume 93.6 fL (80-94); Mean Platelet Vol. 11.3 fl (6.2-12.0); Monocyte# 0.51 X10^3/uL; Monocyte% 9.2 % (0-10); NRBC Flagged by Analyzer 0 % (0-5); Neutrophil % 57.3 % (47-70); Platelet Count 220 K/mm3 (150-450); RBC Distribution Width CV 13.3 % (11.6-14.6); RBC Distribution Width SD 45.9 fl (35.1-43.9); Red Blood Count 5.12 M/mm3 (4.6-6.2); White Blood Count 5.6 K/mm3 (4.4-11.0)
[2023-04-25 17:05] LABS: PSA,Total - Annual Screen 1.35 ng/mL (0.00-4.00); T4 Free Direct 0.63 ng/dL (0.76-1.46)
[2023-04-27 15:08] LABS: Albumin 3.5 g/dL (2.9-4.4); Alpha-1-Globulins 0.2 g/dL (0.0-0.4); Alpha-2-Globulins 0.9 g/dL (0.4-1.0); Gamma Globulin 0.8 g/dL (0.4-1.8); Immunoglobulin A 249 mg/dL (61-437); Immunoglobulin G 906 mg/dL (603-1613); Immunoglobulin M 60 mg/dL (20-172); PROEL- TOTAL PROTEIN 6.6 g/dL (6.0-8.5)
[2023-05-04 13:07] LABS: Testosterone, % Free 1.72 % (1.50-4.20); Testosterone, Free 6.11 ng/dL (5.00-21.00); Testosterone, Total 355 ng/dL (264-916)
== END | disposition home or self-care (01) ==
LOC: BIMLAB 15:31
PROVIDERS: Internal Medicine Endocrinology, Diabetes & Metabolism; PCP Internal Medicine; Visit Provider Psychiatry & Neurology Neurology
DX: R86.1 Abnormal level of hormones in specimens from male genital organs (principal); E03.2 Hypothyroidism due to medicaments and other exogenous substances; G62.9 Polyneuropathy, unspecified; Z12.5 Encounter for screening for malignant neoplasm of prostate
CPT/HCPCS: 36415; 82784; 84153; 84165; 84402; 84403; 84439; 84443; 85025; 86334; 86335; G0103

== ENCOUNTER 2023-05-13 10:28 | Emergency (ER) | payer MEDICARE, MEDICAID, SELFPAY ==
[2023-05-13 10:30] VITALS: BP 168/92; PULSE 90; RESP 18; TEMP 36; O2SAT 100
--- NOTE | 2023-05-13 10:37 | CT_ITS ---
STUDY: CT ABDOMEN AND PELVIS WITHOUT CONTRAST REASON FOR EXAM: Male, 67 years old. R flank pain RADIATION DOSAGE (If Supplied By Facility): CTDIvol = ( 17.23 ) mGy, DLP = ( 947.11 ) mGycm TECHNIQUE: Transaxial images were obtained from the dome of the diaphragm to the symphysis pubis without oral contrast, and without intravenous contrast. Sagittal and coronal images were reconstructed. Individualized dose optimization techniques were used for this CT. COMPARISON: 07/29/2012 FINDINGS: Chronic interstitial changes in the lung bases with bibasilar atelectasis. The visualized portions of the heart are within normal limits. Liver shows subtle nodular border suggesting changes of cirrhosis. Normal gallbladder and extrahepatic biliary system. There is stable splenomegaly with calcifications noted throughout the spleen consistent with granulomatous calcifications. Normal pancreas. Normal bilateral adrenal glands. Normal right kidney. Normal left kidney. Normal visualized stomach. Normal small intestine. Retained stool noted throughout the colon. There are a few scattered colonic diverticula without CT evidence of acute diverticulitis. The appendix is visualized and appears normal. Appendix seen on coronal recon images 68-75 There is diffuse atherosclerotic calcification of the abdominal aorta, without a demonstrated aneurysm. Normal inferior vena cava. Normal retroperitoneum. Normal urinary bladder. Small fat-containing inguinal hernias. There are diffuse degenerative changes of the visualized lumbar spine, and pelvis. CT/Abdomen/Pelvis without Cont IMPRESSION: Nodular borders noted within the liver suggesting changes of cirrhosis. No discrete lesion. Stable splenomegaly with groundglass calcifications. No obstructive uropathy or suspicious solid renal lesion Scattered colonic diverticula, no CT evidence of acute diverticulitis Diffuse atherosclerosis No free intraperitoneal fluid, air, or suspicious adenopathy. Normal appendix visualized. Degenerative bony changes Electronically Signed: Nasir Medrano MD at 11:59 EDT ,
--- NOTE | 2023-05-13 10:38 | EDS_ITS ---
HPI HPI - GI History of Present Illness Chief Complaint: Flank Pain Informant: patient Narrative Narrative: Sudden onset severe pain in the right side/back started last night, he states has been hurting all night and so he comes in the following morning for this. He denies it being colicky and denies any nausea or vomiting. He states when he moves and breathes it is somewhat worse. No pain in his abdomen, no urinary symptoms this morning, no problems with bowel movements recently. Never had pain like this before. PFSH PFS Medical History Chronic back pain Cirrhosis COPD (chronic obstructive pulmonary disease) Essential hypertension Fatigue Frequent headaches Heavy alcohol use Hepatitis C Hypothyroidism (acquired) Low testosterone in male Muscle spasm Peripheral arterial disease Pituitary macroadenoma Primary osteoarthritis of left knee Smoker Spinal stenosis TIA (transient ischemic attack) Tobacco dependence Ventricular tachycardia Home Medications albuterol sulfate 90 mcg/actuation aerosol inhaler 2 puff inhalation Q6H PRN PRN Sob &/Or Wheezing 12/02/13 [History Last Taken 12/14/20] gabapentin 600 mg tablet 1 tablet PO TID NERVE PAIN 01/12/20 [History Last Taken 12/15/20] ascorbic acid (vitamin C) 500 mg tablet 500 mg PO DAILY supplement 12/16/20 [History Last Taken 12/15/20] cholecalciferol (vitamin D3) 50 mcg (2,000 unit) capsule 50 mcg PO DAILY Check with primary doctor 12/16/20 [History Last Taken 06/11/22] docusate sodium 100 mg capsule 100 mg PO DAILY CONSTIPATION 12/16/20 [History Last Taken 06/11/22] flaxseed 1,000 mg capsule 1,000 mg PO DAILY SUPPLEMENT 12/16/20 [History Last Taken 06/11/22] zinc 50 mg tablet 50 mg PO DAILY Check with primary doctor 12/16/20 [History Last Taken 06/11/22] aspirin 81 mg chewable tablet 81 mg PO BREAKFAST 30 days #30 tabs 06/13/22 [Rx Last Taken Unknown] ferrous sulfate 325 mg (65 mg iron) tablet (FeroSul) 325 mg PO DAILY 11/15/22 [History Last Taken Unknown] multivitamin (Multiple Vitamins tablet) 1 tab PO DAILY 11/15/22 [History Last Taken Unknown] zolpidem 6.25 mg tablet,extended release,multiphase 6.25 mg PO QHS 11/15/22 [History Last Taken Unknown] nicotine (polacrilex) 2 mg buccal lozenge 2 mg buccal Q4H PRN nicotine cravings #108 ea 11/20/22 [Rx Last Taken Unknown] nicotine 14 mg/24 hr daily transdermal patch 1 patch transdermal DAILY #28 ea 11/20/22 [Rx Last Taken Unknown] pantoprazole 40 mg tablet,delayed release 40 mg PO DAILY #90 tabs 02/14/23 [Rx Last Taken Unknown] amlodipine 5 mg tablet 5 mg PO DAILY #90 tabs 03/13/23 [Rx Last Taken Unknown] bupropion HCl 300 mg 24 hr tablet, extended release 300 mg PO DAILY #90 tabs 03/13/23 [Rx Last Taken Unknown] lisinopril 20 mg tablet 20 mg PO DAILY #90 tabs 03/13/23 [Rx Last Taken Unknown] testosterone 1.62 % (40.5 mg/2.5 gram) transdermal gel packet (AndroGel) 1 packet transdermal DAILY #75 grams 03/15/23 [Rx Last Taken Unknown] levothyroxine 150 mcg tablet 150 mcg PO DAILY #90 tabs 04/30/23 [Rx Last Taken Unknown] orphenadrine citrate 100 mg tablet,extended release 100 mg PO Q12H PRN muscle spasm #20 tabs 05/13/23 [Rx Last Taken Unknown] oxycodone-acetaminophen 5 mg-325 mg tablet 1 tab PO Q6H PRN PRN Pain 3 days #12 TABLETS 05/13/23 [Rx Last Taken Unknown] Allergy/AdvReac Type Severity Reaction Status Date / Time codeine Allergy Severe Rash Verified 05/13/23 10:29 propoxyphene HCl Allergy Severe Vomiting Verified 05/13/23 10:29 [From Darvon] propoxyphene napsylate Allergy Severe Vomiting Verified 05/13/23 10:29 [From Darvocet-N 100] Family History Mother Diabetes Heart disease Surgical History Chronic right shoulder pain H/O arthroscopy of left knee H/O right knee surgery S/P hernia repair Social History household members: significant other current occupational status: retired 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 Smoking Status: Former smoker Tobacco: How many years used: 50 second hand exposure: No alcohol intake: former details: socially substance use type: does not use what type of physical activity do you participate in: none and walking frequency: 1-2 times per week seatbelt use: always do you feel safe at home: Yes ROS ROS ED Constitutional Constitutional ED: Denies chills or fever(s) Eyes Eyes: Denies change in vision or diplopia ENT ENT ED: Denies rhinorrhea or sore throat Cardiovascular Cardiovascular: Denies chest pain or palpitations Respiratory/Chest Respiratory/Chest: Denies cough or dyspnea Gastrointestinal Gastrointestinal: Denies abdominal pain, diarrhea, nausea or vomiting Genitourinary Genitourinary ED: Denies dysuria or hematuria Musculoskeletal Musculoskeletal: Reports back pain; Denies neck pain Integumentary Denies abscess or rash Neurologic Neurologic: Denies headache(s), paresthesias or weakness Psychiatric Psychiatric: Denies anxiety or suicidal thoughts EXAM Physical Exam Const Vital Signs: 05/13/23 10:30 05/13/23 12:42 Temperature 96.8 F L Temperature Source Temporal Pulse Rate 90 75 Respiratory Rate 18 20 H Blood Pressure 168/92 H 168/64 H Blood Pressure Mean 117 98 Pulse Ox 100 99 Oxygen Delivery Method Room Air Room Air Positive well nourished and well developed Constitutional Narrative: Mild acute painful distress, no respiratory distress, keenly alert General Appearance ED: well developed HEENT Reports moist mucous membranes normocephalic and atraumatic Eyes PERRL and EOMs intact bilaterally Neck full ROM and supple Resp normal respiratory effort and clear to auscultation bilaterally Cardio regular rate, regular rhythm and no murmurs GI non-tender and non-distended Auscultation: normoactive bowel sounds Palpation: soft Back/Spine General Back: CVA tenderness right and other FROM Extremity normal to inspection General Extremety ED: Negative for edema, pulses abnormal or tenderness General Extremity: Negative for edema or pulses abnormal Neuro oriented x3, CN's II-XII intact bilaterally and no sensory deficits noted Sensorium / Orientation: awake and alert Motor Exam: strength 5/5 throughout Skin no rashes or lesions noted and no wounds MDM MDM MDM Narrative Medical decision making narrative: Differential includes renal etiology such as kidney stone, kidney infection, less likely renal infarct, other causes of obstructive uropathy, in addition to intestinal, gallbladder etiologies, musculoskeletal, ruptured AAA this is not an exclusive list. Ruptured AAA is thought to be less likely due to lack of any abdominal pain and intact lower extremity pulses, gallbladder thought to be less likely since I am not able to reproduce any abdominal tenderness. CT given all of this is indicated along with labs, and he was treated with analgesics which did help but not take the pain completely away. He seemed to moan as if the pain was somewhat colicky although he denied this. The CT results were noted, I reviewed the images myself and I agree with the results. It is negative for any obstructive uropathy or obvious renal abnormality. He does have a history of hepatic cirrhosis due to chronic hepatitis C, and changes consistent with cirrhosis were noted on the CT, but no other acute abnormality. I obtained a more detailed history now that the patient was feeling more comfortable, and I reexamined him. His right upper quadrant is still nontender, and he still has CVA tenderness in the right low back. He states he was drinking beer with some friends last night, then he was sitting on the edge of the bed, any noticed the pain suddenly when he stood up from a sitting position and it has been there ever since and severe. With a unremarkable CT, this makes me consider musculoskeletal causes more likely. Labs are noted he has no signs of acute renal insufficiency and he has had this pain for 12 hours plus or minus, making renal infarct less likely. His white blood count is normal. He was given more analgesics along with Norflex. This did help more. It is worse with movement. Based on ancillaries being normal including his urine, and the history/exam, my diagnosis of exclusion here is that this is musculoskeletal so I am writing a prescriptions for that and advising close a patient follow-up, he is okay with that and has an appointment with his PCP this coming week anyway. Lab Data Attestation: I reviewed the patient's lab results. Labs: Laboratory Results - last 24 hr 05/13/23 05/13/23 10:45 12:10 WBC 5.8 RBC 4.88 Hgb 14.9 Hct 44.9 MCV 92.0 MCH 30.5 MCHC 33.2 RDW Std Deviation 45.2 H RDW Coeff of [place] 13.2 Plt Count 213 MPV 10.2 Immature Gran % (Auto) 0.300 Neut % (Auto) 58.5 Lymph % (Auto) 25.3 Teller % (Auto) 9.8 Eos % (Auto) 5.2 H Baso % (Auto) 0.9 Absolute Neuts (auto) 3.4 Absolute Lymphs (auto) 1.47 Nucleated RBC % 0 Sodium 143 Potassium 4.9 Chloride 108 H Carbon Dioxide 27.0 Anion Gap 8 BUN 15 Creatinine 1.28 Estim Creat Clear Calc 66.89 Est GFR (MDRD) Af Amer 72 Est GFR (MDRD) Non-Af 60 BUN/Creatinine Ratio 11.7 Glucose 90 Calcium 9.1 Urine Color Yellow Urine Clarity Clear Urine pH 6.0 Ur Specific [place] 1.020 Urine Protein 15 H Urine Glucose (UA) Normal Urine Ketones Negative Urine Occult Blood Negative Urine Nitrite Negative Urine Bilirubin Negative Urine Urobilinogen Normal Ur Leukocyte Esterase Negative Urine RBC 0 SEEN Urine WBC 0 SEEN Ur Squamous Epith Cells 0 SEEN Urine Bacteria 0 SEEN Urine Mucus 0 SEEN Radiography Diagnostic Testing: Clinical Impression(s) from Imaging Studies Abdomen/Pelvis CT 05/13/23 10:37 IMPRESSION: Nodular borders noted within the liver suggesting changes of cirrhosis. No discrete lesion. Stable splenomegaly with groundglass calcifications. No obstructive uropathy or suspicious solid renal lesion Scattered colonic diverticula, no CT evidence of acute diverticulitis Diffuse atherosclerosis No free intraperitoneal fluid, air, or suspicious adenopathy. Normal appendix visualized. Degenerative bony changes Electronically Signed: Nasir Medrano MD at 11:59 EDT Reading Location ID and State: [address] [place] [address] , Service support , Discharge Plan Triage Chief Complaint: Flank Pain Other Complaint: Back ED Provider: Justin Feng Dx/Rx/DC Orders Clinical Impression: Acute low back pain Instructions: ED Back Pain (Acute or Chronic) Prescriptions: New orphenadrine citrate 100 mg tablet extended release 100 mg PO Q12H PRN (Reason: muscle spasm) Qty: 20 0RF oxycodone-acetaminophen [oxycodone-acetaminophen] 5-325 mg tablet 1 tab PO Q6H PRN PRN (Reason: Pain) 3 Days Qty: 12 0RF No Action gabapentin 600 mg tablet 1 tablet PO TID Patient Comments: TAKE 1 TABLET THREE TIMES DAILY zolpidem 6.25 mg tablet,ext release multiphase 6.25 mg PO QHS multivitamin [Multiple Vitamins] Tablet 1 tab PO DAILY ferrous sulfate [FeroSul] 325 mg (65 mg iron) tablet 325 mg PO DAILY nicotine 14 mg/24 hr patch 24 hour 1 patch transdermal DAILY Qty: 28 0RF nicotine (polacrilex) 2 mg lozenge 2 mg buccal Q4H PRN (Reason: nicotine cravings) Qty: 108 0RF albuterol sulfate 1 PUFF inhaler 2 puff INHALATION Q6H PRN PRN (Reason: Sob &/Or Wheezing) Patient Comments: sob/ wheeze ascorbic acid (vitamin C) 500 mg Tablet 500 mg PO DAILY docusate sodium 100 mg capsule 100 mg PO DAILY Patient Comments: TAKE 1 TABLET ONCE DAILY zinc 50 mg Tablet 50 mg PO DAILY cholecalciferol (vitamin D3) 50 mcg (2,000 unit) Capsule 50 mcg PO DAILY flaxseed 1,000 mg Capsule 1,000 mg PO DAILY aspirin 81 mg Tablet,Chewable 81 mg PO BREAKFAST 30 Days Qty: 30 0RF pantoprazole 40 mg tablet,delayed release (DR/EC) 40 mg PO DAILY Qty: 90 0RF amlodipine 5 mg tablet 5 mg PO DAILY Qty: 90 0RF lisinopril 20 mg tablet 20 mg PO DAILY Qty: 90 0RF bupropion HCl 300 mg tablet extended release 24 hr 300 mg PO DAILY Qty: 90 0RF testosterone [AndroGel] 1.62 % (40.5 mg/2.5 gram) gel in packet 1 packet transdermal DAILY Qty: 75 3RF levothyroxine 150 mcg tablet 150 mcg PO DAILY Qty: 90 1RF Primary Care Provider: Sharon Velázquez Referrals: Sharon Velázquez MD [Primary Care Provider] - Keep [facility] appointment Disposition Disposition: Home, Self Care
[2023-05-13] MEDS: Ondansetron 4 MG/2 ML Vial IV (10:44)
[2023-05-13] MEDS: Morphine 4 MG/ML Syringe IV ×2 (10:45→12:33)
[2023-05-13] MEDS: Ketorolac 30 MG/ML Syringe 15 MG IV (10:45)
[2023-05-13 10:50] VITALS: BMI 32.5
[2023-05-13 10:53] LABS: Absolute Lymphocyte Count 1.47 X10^3/uL (0.83-4.51); Absolute Neutrophil Count 3.4 X10^3/uL (2.0-7.7); Basophil# 0.05 X10^3/uL; Basophil% 0.9 % (0-1); Eosinophils% 5.2 % (0-5); Hematocrit 44.9 % (40-54); Hemoglobin 14.9 g/dL (13.0-16.5); Lymphocyte # 1.47 X10^3/ul (0.83-4.51); Lymphocyte % 25.3 % (19-41); Mean Corp Hgb Conc 33.2 g/dL (32-36); Mean Corpuscular Hgb 30.5 pg (27.0-32.0); Mean Platelet Vol. 10.2 fl (6.2-12.0); Monocyte# 0.57 X10^3/uL; Monocyte% 9.8 % (0-10); NRBC Flagged by Analyzer 0 % (0-5); Neutrophil % 58.5 % (47-70); Platelet Count 213 K/mm3 (150-450); RBC Distribution Width CV 13.2 % (11.6-14.6); RBC Distribution Width SD 45.2 fl (35.1-43.9); Red Blood Count 4.88 M/mm3 (4.6-6.2); White Blood Count 5.8 K/mm3 (4.4-11.0)
[2023-05-13 11:03] LABS: Anion Gap 8 (5-15); BUN 15 mg/dL (7-18); BUN/Creat Ratio 11.7 RATIO (10-20); Calcium,Total 9.1 mg/dL (8.5-10.1); Chloride 108 mmol/L (98-107); Creatinine, Serum 1.28 mg/dL (0.70-1.30); EST Glomerular Filtration Rate 60 mL/min (>60); Est Glom Filt Rate - Afr Amer 72 mL/min (>60); Estimated Creatinine Clearance 66.89 ml/min; Glucose 90 mg/dL (74-106); Potassium 4.9 mmol/L (3.5-5.1); Sodium Level 143 mmol/L (136-145)
[2023-05-13 12:19] LABS: Bacteria 0 SEEN /hpf (None Seen); Mucous, Urine 0 SEEN /hpf (<or=2+); Red Blood Cells-Urine 0 SEEN /hpf (0-5); Squamous Epithelial Cells - UA 0 SEEN /hpf (0-5); White Blood Cells 0 SEEN /hpf (0-5)
[2023-05-13 12:28] LABS: Color, Urine Yellow (Yellow); Glucose, Dipstick Normal (Normal); Ketone-Dipstick Negative (Negative); Leukocyte Esterase-Dipstick Negative /ul (Negative); Nitrite-Dipstick Negative (Negative); Occult Blood-Urine Negative /ul (Negative); Protein-Dipstick 15 mg/dl (Negative); Urine Bilirubin Dipstick Negative (Negative); Urine Clarity Clear (Clear); Urine Urobilinogen Normal (Normal)
[2023-05-13] MEDS: Orphenadrine 60 MG/2 ML Ampul IV (12:35)
[2023-05-13 12:42] VITALS: BP 168/64; PULSE 75; RESP 20; O2SAT 99
== END 2023-05-13 13:11 | disposition home or self-care (01) ==
PROVIDERS: Emergency Provider Emergency Medicine; PCP Internal Medicine; Visit Provider Emergency Medicine
DX: M54.50 Low back pain, unspecified (principal); J44.9 Chronic obstructive pulmonary disease, unspecified; R10.9 Unspecified abdominal pain; Z87.891 Personal history of nicotine dependence; I10 Essential (primary) hypertension
CPT/HCPCS: 74176; 80048; 81001; 85025; 96374; 96375; 96376; 99284; J7030; A4216; J2405

== ENCOUNTER → 2023-06-15 | Outpatient (CLI) | payer MEDICARE, MEDICAID, SELFPAY ==
[2023-06-15 13:17] LABS: T4 Free Direct 1.31 ng/dL (0.76-1.46); Thyroid Stim Hormone (TSH) 0.43 uIU/mL (0.358-3.74)
== END | disposition home or self-care (01) ==
LOC: BIMLAB 10:58
PROVIDERS: PCP Internal Medicine; Referring Provider Internal Medicine Endocrinology, Diabetes & Metabolism; Visit Provider Internal Medicine Endocrinology, Diabetes & Metabolism
DX: E03.9 Hypothyroidism, unspecified (principal)
CPT/HCPCS: 36415; 84439; 84443

== ENCOUNTER → 2023-06-26 | Outpatient (CLI) | payer MEDICARE, MEDICAID, SELFPAY ==
[2023-06-26 16:16] LABS: Cholesterol 178 mg/dL (200); High Density Lipoprotein 56 mg/dL; Triglycerides 101 mg/dL; Very Low Density Lipoprotein 20 mg/dL (5-40)
== END | disposition home or self-care (01) ==
LOC: BIMLAB 11:40
PROVIDERS: PCP Internal Medicine; Referring Provider Internal Medicine; Visit Provider Internal Medicine
DX: K76.0 Fatty (change of) liver, not elsewhere classified (principal)
CPT/HCPCS: 36415; 80061

== ENCOUNTER 2023-07-05 05:33 | Day surgery (SDC) | payer MEDICARE, MEDICAID, SELFPAY ==
[2023-07-05 05:58] VITALS: BP 128/87; PULSE 88; RESP 16; TEMP 36.7; O2SAT 97; BMI 31.5
[2023-07-05] MEDS: Lactated Ringers 1,000 ML 15 ML IV (06:00)
--- NOTE | 2023-07-05 06:30 | COLBX_PTH ---
PATIENT: ZANE YEPEZ LOC: EN U#:[id number] AGE/SX: 68/M ROOM: RE07/05/[address]: Dr. Nuno Calvert DO : 1955 BED: DIS: 07/05/2023 SPEC #: [id number] RECD: 07/05/23 10:42 STATUS: CARLY REAbigail #: [id number] MELANIE: 07/05/23 06:[address]: Nuno Calvert DEPT: SURGICAL PATHOLOGY RECD BY: Ayana Hu ENTERED: 07/05/23 12:16 SP TYPE: COLON BX OT DR: Dr. Sharon Velázquez MD Tissues: A - COLON BIOPSY B - Sigmoid colon biopsy Procedures: Surgery Specimen Level IV HEADER OPERATION: Colonoscopy, polypectomy PRE-OP DIAGNOSIS: Screening for malignant neoplasm of colon TISSUE SUBMITTED: A - hepatic flexure polyp, B - sigmoid polyp MICROSCOPIC DIAGNOSIS A. Colonic polyp at hepatic flexure, biopsy: Fragments of tubular adenoma. B. Sigmoid colon polyp, biopsy: Fragments of benign colonic mucosa and fecal debris. See comment. AM:marilynn 07/06/2023 COMMENT B. Neither hyperplastic nor adenomatous change is identified. Clinical correlation is suggested. MICROSCOPIC DESCRIPTION Slides are reviewed. GROSS DESCRIPTION A - Received in fixative is one container labeled with the patient's name and designated hepatic flexure polyp. The specimen consists of a alatorre-pink polyp measuring 0.8 x 0.5 x 0.5 cm. The polyp is bisected and submitted entirely in one cassette. B - Received in fixative is one container labeled with the patient's name and designated sigmoid polyp. The specimen consists of multiple irregular fragments of light alatorre soft tissue mixed with fecal material that in aggregate measure 2.0 x 0.5 x 0.1 cm. The specimen is totally submitted in one cassette. / SJ:marilynn 07/05/2023 TC:5 CPT: 45914 x2
--- NOTE | 2023-07-05 06:36 | PCM.HP.STD ---
HPI - General General Date of Admission: 07/05/23 Date of Service: 07/05/23 Chief Complaint: Screening colonoscopy HPI Narrative ZANE YEPEZ, is a 68 M who presents today for screening colonoscopy. He had a colonoscopy possibly 10 years ago and it was normal. He does not have abdominal pain. Has not any vomiting. He is chest shortness of breath or loss fairly good health. [facility] Medical History (Updated 07/03/23 @ 13:46 by Myla Barroso) Back strain Cardiology follow-up encounter Chronic back pain Cirrhosis COPD (chronic obstructive pulmonary disease) CPAP (continuous positive airway pressure) dependence Essential hypertension Fatigue Fatty liver Frequent headaches Gastric reflux Heavy alcohol use Hepatitis C History of echocardiogram History of edema History of rheumatic fever History of stress test Hypothyroidism (acquired) Low iron Low testosterone in male Muscle spasm Peripheral arterial disease Pituitary macroadenoma Primary osteoarthritis of left knee Restless legs Smoker Spinal stenosis TIA (transient ischemic attack) Tobacco dependence Ventricular tachycardia Wears glasses Wears partial dentures Home Medications albuterol sulfate 90 mcg/actuation aerosol inhaler 2 puff inhalation Q6H PRN PRN Sob &/Or Wheezing 12/02/13 [History Last Taken 07/05/23] gabapentin 600 mg tablet 1 tablet PO TID NERVE PAIN 01/12/20 [History Last Taken 07/05/23] ascorbic acid (vitamin C) 500 mg tablet 500 mg PO DAILY supplement 12/16/20 [History Last Taken 12/15/20] cholecalciferol (vitamin D3) 50 mcg (2,000 unit) capsule 50 mcg PO DAILY Check with primary doctor 12/16/20 [History Last Taken 06/11/22] flaxseed 1,000 mg capsule 1,000 mg PO DAILY SUPPLEMENT 12/16/20 [History Last Taken 06/11/22] zinc 50 mg tablet 50 mg PO DAILY Check with primary doctor 12/16/20 [History Last Taken 06/11/22] aspirin 81 mg chewable tablet 81 mg PO BREAKFAST 30 days #30 tabs 06/13/22 [Rx Last Taken 07/01/23] ferrous sulfate 325 mg (65 mg iron) tablet (FeroSul) 325 mg PO DAILY 11/15/22 [History Last Taken Unknown] multivitamin (Multiple Vitamins tablet) 1 tab PO DAILY 11/15/22 [History Last Taken Unknown] zolpidem 6.25 mg tablet,extended release,multiphase 6.25 mg PO QHS 11/15/22 [History Last Taken Unknown] orphenadrine citrate 100 mg tablet,extended release 100 mg PO Q12H PRN muscle spasm #20 tabs 05/13/23 [Rx Last Taken Unknown] oxycodone-acetaminophen 5 mg-325 mg tablet 1 tab PO Q6H PRN PRN Pain 3 days #12 TABLETS 05/13/23 [Rx Last Taken Unknown] levothyroxine 150 mcg tablet 150 mcg PO DAILY #90 tabs 06/15/23 [Rx Last Taken 07/05/23] testosterone 1.62 % (40.5 mg/2.5 gram) transdermal gel packet (AndroGel) 1 packet transdermal DAILY #75 grams 06/15/23 [Rx Last Taken Unknown] amlodipine 5 mg tablet 5 mg PO DAILY #90 tabs 06/26/23 [Rx Last Taken 07/05/23] bupropion HCl 300 mg 24 hr tablet, extended release 300 mg PO DAILY #90 tabs 06/26/23 [Rx Last Taken 07/05/23] docusate sodium 100 mg capsule 100 mg PO DAILY PRN CONSTIPATION #90 caps 06/26/23 [Rx Last Taken Unknown] lisinopril 20 mg tablet 20 mg PO DAILY #90 tabs 06/26/23 [Rx Last Taken 07/05/23] nicotine (polacrilex) 2 mg buccal lozenge 2 mg buccal Q4H PRN nicotine cravings #108 ea 06/26/23 [Rx Last Taken Unknown] nicotine 14 mg/24 hr daily transdermal patch 1 patch transdermal DAILY #28 ea 06/26/23 [Rx Last Taken Unknown] pantoprazole 40 mg tablet,delayed release 40 mg PO DAILY #90 tabs 06/26/23 [Rx Last Taken 07/05/23] Allergy/AdvReac Type Severity Reaction Status Date / Time codeine Allergy Severe Rash Verified 07/05/23 05:57 propoxyphene HCl Allergy Severe Vomiting Verified 07/05/23 05:57 [From Darvon] propoxyphene napsylate Allergy Severe Vomiting Verified 07/05/23 05:57 [From Darvocet-N 100] Family History Mother Diabetes Heart disease Surgical History (Updated 06/29/23 @ 13:40 by Yue Benton) Chronic right shoulder pain H/O arthroscopy of left knee H/O right knee surgery Hx of colonoscopy S/P hernia repair Social History household members: significant other current occupational status: retired 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 Smoking Status: Current some day smoker tobacco type: cigarettes Tobacco: How many years used: 50 second hand exposure: No alcohol intake: former details: socially substance use type: does not use what type of physical activity do you participate in: none and walking frequency: 1-2 times per week seatbelt use: always do you feel safe at home: Yes ROS Constitutional Constitutional: Denies anorexia, change in weight, chills, fatigue, fever(s), malaise or weakness Eyes Eyes: Denies change in vision or eye pain ENT HEENT: Denies dysphagia, hearing loss or nasal congestion Cardiovascular Cardiovascular: Reports chest pain; Denies dyspnea on exertion, edema, lightheadedness, orthopnea, palpitations, paroxysmal nocturnal dyspnea or rapid heart rate Respiratory/Chest Respiratory/Chest: Denies cough, dyspnea, excessive phlegm production, hemoptysis, productive cough, shortness of breath at rest or shortness of breath with exertion Gastrointestinal Gastrointestinal: Denies abdominal pain, coffee ground emesis, diarrhea, dyspepsia or hematochezia Genitourinary Genitourinary: Denies burning urination, difficulty urinating or urinary frequency Musculoskeletal Musculoskeletal: Denies arthralgias, back pain or joint pain Neurologic Neurologic: Denies confusion, dizziness, focal weakness, seizure-like activity, seizures or syncope Psychiatric Psychiatric: Denies anxiety or depression Hematologic/Lymphatic Hematologic/Lymphatic: Denies anemia Allergic/Immunologic Allergic/Immunologic: Denies asthma Vital Signs Vital Signs Vital Signs: 07/05/23 05:58 07/05/23 05:58 Temperature 98.1 F Temperature Source Temporal Pulse Rate 88 Respiratory Rate 16 Respiratory Pattern Normal Blood Pressure 128/87 H Blood Pressure Mean 100 Blood Pressure Source Monitor Blood Pressure Position Semi-Fowlers Blood Pressure Location Left Arm Pulse Ox 97 Oxygen Delivery Method Room Air Weight Weight: 245 lb 13.047 oz Body Mass Index (BMI) 31.5 Physical Exam Const alert and no apparent distress Constitutional Narrative: Oriented HEENT normocephalic and head/scalp atraumatic Eyes Eyes Narrative: EOM grossly intact, anicteric Neck supple Resp normal respiratory effort and clear to auscultation bilaterally Cardio regular rate and regular rhythm GI soft to palpation, non-tender and non-distended Extremity Extremity Narrative: No edema appreciated Neuro moves all extremities Neuro Narrative: No overt focal deficits appreciated Psych Psych Narrative: Cooperative Assessment & Plan Assessment/Plan (1) Encounter for screening for malignant neoplasm of colon: PLAN: He was explained alternatives, risk, benefits include not withstanding bleeding, infection, sepsis, perforation, need for emergent urgent . He will have an ASA of 2.
[2023-07-05 07:05] VITALS: BP 120/90; BP 128/87; PULSE 82; RESP 16; TEMP 36.4; O2SAT 100
--- NOTE | 2023-07-05 07:07 | OP.CCLET_ITS ---
07/05/2023 Sharon Velázquez Md Re : Colonoscopy procedure for Alberto Schmitt Dear Melania This procedure was performed on June. My impressions and recommendations are as follows: Impressions : - Diverticulosis in the recto-sigmoid colon, in the sigmoid colon and in the cecum. - Three 1 to 2 mm polyps in the sigmoid colon and at the hepatic flexure, removed with a hot snare. Resected and retrieved. Recommendations : - Repeat colonoscopy in 3 years for surveillance. - Continue present medications. My findings are described in the full procedure note, which is enclosed. If I can be of further assistance, please feel free to contact me at . Sincerely, Nuno Calvert, 07/05/2023 7:06:41 AM This report has been signed electronically.
--- NOTE | 2023-07-05 07:07 | OP.COLON_ITS ---
Patient Name: Alberto Schmitt Procedure Date: 07/05/2023 6:20 AM Date of : 1955 Age: 68 Procedure: Colonoscopy Indications: Screening for colorectal malignant neoplasm Providers: Nuno Calvert DO Referring MD: Nuno Calvert DO Medicines: Monitored Anesthesia Care Patient Profile: This is a 68 year old male. Refer to note in patient chart for documentation of history and physical. Last Colonoscopy: 10 years ago. Complications: No immediate complications. Estimated blood loss: None. Procedure: Pre-Anesthesia Assessment: - Prior to the procedure, a History and Physical was performed, and patient medications and allergies were reviewed. The patient is competent. The risks and benefits of the procedure and the sedation options and risks were discussed with the patient. All questions were answered and informed consent was obtained. Patient identification and proposed procedure were verified by the physician. Mental Status Examination: normal. CV Examination: normal. Prophylactic Antibiotics: The patient does not require prophylactic antibiotics. Prior Anticoagulants: The patient has taken no anticoagulant or antiplatelet agents. After reviewing the risks and benefits, the patient was deemed in satisfactory condition to undergo the procedure. The anesthesia plan was to use monitored anesthesia care (MAC). Immediately prior to administration of medications, the patient was re-assessed for adequacy to receive sedatives. The heart rate, respiratory rate, oxygen saturations, blood pressure, adequacy of pulmonary ventilation, and response to care were monitored throughout the procedure. The physical status of the patient was re-assessed after the procedure. After I obtained informed consent, the scope was passed under direct vision. Throughout the procedure, the patient's blood pressure, pulse, and oxygen saturations were monitored continuously. The Colonoscope was introduced through the anus and advanced to the cecum, identified by appendiceal orifice and ileocecal valve. The colonoscopy was performed without difficulty. The patient tolerated the procedure well. The quality of the bowel preparation was adequate. The ileocecal valve, appendiceal orifice, and rectum were photographed. Scope In: 6:41:37 AM Scope Withdrawal Time 0 hours 14 minutes 35 seconds Scope Out: 6:58:59 AM Total Procedure Duration Time 0 hours 17 minutes 22 seconds Findings: The perianal and digital rectal examinations were normal. A few small and large-mouthed diverticula were found in the recto-sigmoid colon, sigmoid colon and cecum. Three sessile polyps were found in the sigmoid colon and hepatic flexure. The polyps were 1 to 2 mm in size. These polyps were removed with a hot snare. Resection and retrieval were complete. Verification of patient identification for the specimen was done. Estimated blood loss was minimal. Non-bleeding external and internal hemorrhoids were found during retroflexion. The hemorrhoids were Grade II (internal hemorrhoids that prolapse but reduce spontaneously). 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 Impression: - Diverticulosis in the recto-sigmoid colon, in the sigmoid colon and in the cecum. - Three 1 to 2 mm polyps in the sigmoid colon and at the hepatic flexure, removed with a hot snare. Resected and retrieved. Recommendation: - Repeat colonoscopy in 3 years for surveillance. - Continue present medications. Procedure Code(s): --- Professional --- 01938, Colonoscopy, flexible; with removal of tumor(s), polyp(s), or other lesion(s) by snare technique CPT copyright 2021 [employer]. All rights reserved. The codes documented in this report are preliminary and upon steam setter review may be revised to meet current compliance requirements. Nuno Calvert DO 07/05/2023 7:06:41 AM This report has been signed electronically. Number of Addenda: 0 Note Initiated On: 07/05/2023 6:20 AM
[2023-07-05 07:10] VITALS: BP 125/85; BP 128/87; PULSE 83; RESP 18; O2SAT 99
[2023-07-05 07:15] VITALS: BP 128/87; BP 134/96; PULSE 76; RESP 18; TEMP 36.6; O2SAT 100
[2023-07-05 07:34] VITALS: BP 128/87
== END 2023-07-05 07:36 | disposition home or self-care (01) ==
LOC: EN 05:33 → AC 05:34
PROVIDERS: PCP Internal Medicine; Referring Provider Internal Medicine Gastroenterology; Visit Provider Internal Medicine Gastroenterology
PROC: 0DJD8ZZ Inspection of Lower Intestinal Tract, Via Natural or Artificial Opening Endoscopic (ICD-10-PCS; CPT 45378; principal; 2023-07-05 06:25)
DX: Z12.11 Encounter for screening for malignant neoplasm of colon (principal); J44.9 Chronic obstructive pulmonary disease, unspecified; D12.3 Benign neoplasm of transverse colon; D12.5 Benign neoplasm of sigmoid colon; D17.5 Benign lipomatous neoplasm of intra-abdominal organs; K57.30 Diverticulosis of large intestine without perforation or abscess without bleeding; K64.1 Second degree hemorrhoids; K21.9 Gastro-esophageal reflux disease without esophagitis; I10 Essential (primary) hypertension; E03.9 Hypothyroidism, unspecified; E61.1 Iron deficiency; F17.210 Nicotine dependence, cigarettes, uncomplicated; Z91.199 Patient's noncompliance with other medical treatment and regimen due to unspecified reason; Z79.82 Long term (current) use of aspirin; Z79.899 Other long term (current) drug therapy; Z86.73 Personal history of transient ischemic attack (TIA), and cerebral infarction without residual deficits
CPT/HCPCS: 45385; 88305; J7120; J2405

== ENCOUNTER → 2023-09-11 | Outpatient (CLI) | payer MEDICARE, MEDICAID, SELFPAY ==
--- OUTSIDE RECORDS SUMMARY | 2023-09-11 07:28 | XMS RPT_ITS | CCD ---
Author Name Unknown Address [address] [place] [address] Organization [facility] Care Team Providers Care Financial Advisor Trainee Name Role Phone Helene Damon Unavailable Helene Damon Unavailable Helene Damon Unavailable JOHNNY CASANOVA Unavailable Unavailable DEO MENDEZ Unavailable Unavailable Deo Mendez MD Primary Care Provider Deo Mendez MD Primary Care Provider Deo Mendez MD Primary Care Provider LINDA BRIAN Attending Unavailable DEO MENDEZ Primary Care Unavailab le Allergies Allergy Classification Reported Allergen(s) Allergy Type Date of Onset Reaction(s) Facility (3 sources) acetaminophen / propoxyphene Drug Allergy 2 skin rash [facility] Work Phone: (3 sources) propoxyphene Drug Allergy 2 skin rash [facility] Work Phone: (3 sources) CODIENE drug allergy 2 [facility] Work Phone: (9 sources) Acetaminophen; Translations: [ACETAMINOPHEN] Drug Allergy 7 Unknown [facility] (9 sources) Codeine; Translations: [CODEINE] Drug Allergy 8 [facility] Work Phone: (9 sources) Propoxyphene; Translations: [PROPOXYPHENE HCL] Drug Allergy 8 [facility] Work Phone: (9 sources) Propoxyphene N-Acetaminophen; Translations: [PROPOXYPHENE N-ACETAMINOPHEN] Drug Allergy 8 [facility] Medications Current Medications Medication Drug Class(es) Dates Sig (Normalized) Sig (Original) gabapentin 600 mg oral tablet (20 sources) Anti-epileptic Agent Start: 05-20-2022 End: 11-21-2022 take 1 tablet by mouth three times daily gabapentin (NEURONTIN) 600 mg tablet TAKE 1 TABLET BY MOUTH THREE TIMES DAILY 90 tablet 2 08/23/2022 11/21/2022 Active Completed/Discontinued Medications Medication Drug Class(es) Dates Sig (Normalized) Sig (Original) acetaminophen 325 mg / HYDROcodone bitartrate 5 mg oral tablet (3 sources) Opioid Agonist Start: 12-17-2014 End: 01-16-2015 take 1 tablet by mouth every twelve hours as needed for pain NORCO 5-325 MG TABS 1 tab po q 12 hrs as needed pain HYDROCODONE-ACETAMI NOPHEN [id number] Laura Rueda MD acetaminophen 325 mg / oxyCODONE hydrochloride 5 mg oral tablet (19 sources) Opioid Agonist Start: 04-09-2019 End: 06-28-2022 take 1 tablet by mouth every six hours as needed oxyCODONE-acetamino phen (PERCOCET) 5-325 mg tablet Take 1 tablet by mouth every 6 hours as needed. FOR PAIN 0 04/09/2019 06/28/2022 Discontinued (Course of therapy completed) Problems Active Problems Problem Classification Problem Date Documented Date Episodic/Chronic Acute cerebrovascular disease (5 sources) Ischemic stroke; Translations: [Cerebral infarction, unspecified] Onset: 06-13-2022 06-28-2022 Chronic Alcohol-related disorders (16 sources) History of alcohol abuse; Translations: [Alcohol abuse, in remission] Onset: 09-15-2015 09-15-2015 Chronic Anxiety disorders (8 sources) Anxiety disorder; Translations: [Anxiety disorder, unspecified] Onset: 02-08-2017 12-14-2021 Chronic Chronic obstructive pulmonary disease and bronchiectasis (16 sources) Chronic bronchitis; Translations: [Unspecified chronic bronchitis] Onset: 09-15-2015 09-15-2015 Chronic Coagulation and hemorrhagic disorders (8 sources) Thrombocytopenic disorder; Translations: [Thrombocytopenia, unspecified] Onset: 09-11-2012 09-25-2012 Chronic Conditions associated with dizziness or vertigo (2 sources) Vertigo; Translations: [Dizziness and giddiness] Onset: 06-28-2022 Episodic Disorders of lipid metabolism (2 sources) Mixed hyperlipidemia; Translations: [Mixed hyperlipidemia] Onset: 06-28-2022 Chronic Essential hypertension (11 sources) Essential hypertension; Translations: [Hypertensive disorder] Onset: 12-23-2014 12-24-2014 Chronic Hyperplasia of prostate (8 sources) Benign prostatic hyperplasia; Translations: [Benign prostatic hyperplasia without lower urinary tract symptoms] Onset: 11-07-2011 11-07-2011 Chronic Mood disorders (8 sources) Depressive disorder; Translations: [Depression] Onset: 02-08-2017 12-14-2021 Chronic Other circulatory disease (1 source) History of cerebrovascular accident greater than eight weeks in the past; Translations: [Personal history of transient ischemic attack (TIA), and cerebral infarction without residual deficits] Episodic Other liver diseases (8 sources) Cirrhosis of liver; Translations: [Unspecified cirrhosis of liver] Onset: 09-23-2015 09-23-2015 Chronic Other male genital disorders (8 sources) Male erectile dysfunction, unspecified; Translations: [Impotence of organic origin] Onset: 02-08-2017 12-14-2021 Chronic Other nervous system disorders (8 sources) Suprascapular nerve compression; Translations: [Other specified mononeuropathies of unspecified upper limb] 06-07-2014 Chronic Other nervous system disorders (8 sources) Neuropathy; Translations: [Polyneuropathy, unspecified] Onset: 04-18-2019 12-14-2021 Chronic Substance-related disorders (19 sources) History of drug abuse; Translations: [Tobacco user] Onset: 11-07-2011 12-06-2015 Chronic Thyroid disorders (20 sources) Hypothyroidism; Translations: [Hypothyroidism, unspecified] Onset: 09-15-2015 12-06-2015 Chronic Transient cerebral ischemia (6 sources) Transient cerebral ischemia; Translations: [Transient cerebral ischemic attack, unspecified] Onset: 06-13-2022 Chronic Unclassified (3 sources) Screening for malignant neoplasm of colon ; Translations: [Encounter for screening for malignant neoplasm of colon] Onset: 10-31-2011 11-02-2011 Unclassified (3 sources) Other headache syndromes; Translations: [Other headache syndromes] Onset: 05-18-2014 05-18-2014 Past or Other Problems Problem Classification Problem Date Documented Da te Episodic/Chronic Abdominal hernia (6 sources) Umbilical hernia; Translations: [Umbilical hernia without obstruction or gangrene] Resolved: 11-15-2011 11-02-2011 Episodic Deficiency and other anemia (8 sources) Iron deficiency anemia; Translations: [Iron deficiency anemia, unspecified] Onset: 02-08-2017 12-14-2021 Episodic Diabetes mellitus without complication (11 sources) Abnormal glucose level; Translations: [Hyperglycemia] Onset: 07-17-2012 07-17-2012 Episodic External Injury - Adverse effects of medical drugs (3 sources) Eruption due to drug; Translations: [Generalized skin eruption due to drugs and medicaments taken internally] Onset: 09-16-2012 09-25-2012 Episodic Fluid and electrolyte disorders (5 sources) Acute hypernatremia; Translations: [Hyperosmolality and hypernatremia] Onset: 06-28-2022 06-28-2022 Episodic Genitourinary symptoms and ill-defined conditions (16 sources) Increased frequency of urination; Translations: [Frequency of micturition] Onset: 11-07-2011 11-07-2011 Episodic Hepatitis (11 sources) Viral hepatitis C; Translations: [Unspecified viral hepatitis C without hepatic coma] Onset: 11-07-2011 07-17-2012 Episodic Immunizations and screening for infectious disease (8 sources) Contact with or exposure to other viral diseases; Translations: [Exposure to severe acute respiratory syndrome coronavirus 2 (SARS-CoV-2)] Onset: 03-18-2020 12-14-2021 Episodic Other aftercare (8 sources) Polypharmacy ; Translations: [Other senior living (current) drug therapy] Onset: 11-07-2011 11-07-2011 Episodic Other and unspecified benign neoplasm (8 sources) Dermal cellular nevus ; Translations: [Other benign neoplasm of skin, unspecified] Onset: 08-08-2021 12-14-2021 Episodic Other eye disorders (3 sources) Conjunctival hemorrhage; Translations: [Conjunctival hemorrhage, unspecified eye] Onset: 08-28-2012 08-29-2012 Episodic Other injuries and conditions due to external causes (8 sources) Finding with explicit context; Translations: [Personal history of other (healed) physical injury and trauma] Onset: 06-12-2017 12-14-2021 Episodic Other liver diseases (8 sources) Elevated liver enzymes level; Translations: [Abnormal levels of other serum enzymes] Onset: 06-19-2019 12-14-2021 Episodic Other nervous system disorders (3 sources) Chronic pain syndrome; Translations: [Chronic pain syndrome] Onset: 07-17-2012 07-17-2012 Episodic Other non-traumatic joint disorders (5 sources) Pain in right shoulder; Translations: [Pain in joint, shoulder region] Onset: 12-30-2014 06-18-2017 Episodic Other screening for suspected conditions (not mental disorders or infectious disease) (20 sources) Thyroid function tests abnormal; Translations: [Abnormal results of thyroid function studies] Onset: 10-31-2011 12-14-2021 Episodic Other upper respiratory infections (8 sources) Acute sinusitis; Translations: [Acute sinusitis, unspecified] Onset: 06-19-2019 12-14-2021 Episodic Residual codes; unclassified (8 sources) Insomnia; Translations: [Insomnia, unspecified] Onset: 02-08-2017 12-14-2021 Episodic Spondylosis; intervertebral disc disorders; other back problems (20 sources) Lumbosacral radiculopathy; Translations: [Brachial neuritis] Onset: 02-17-2013 10-30-2016 Episodic Sprains and strains (10 sources) Strain of muscle(s) and tendon(s) of the rotator cuff of right shoulder, initial encounter; Translations: [Lumbar sprain] Onset: 09-25-2007 06-27-2017 Episodic Viral infection (8 sources) Herpes zoster; Translations: [Zoster without complications] Onset: 03-05-2018 12-14-2021 Episodic Results Test Name Value Interpretation Reference Range Facil ity Vital Signs Date Time Vital Sign Value Performing Clinician Facility 06-28-2022 09:23-0500 Body height 182.9 cm Linda Brian APRN.CNP Work Phone: [facility] 06-28-2022 09:23-0500 Body temperature 97.81 [degF] Linda Brian SUGAR DRIER.DIRECTOR CARDIOLOGY Work Phone: [facility] 06-28-2022 09:23-0500 Body weight 112.49 kg Linda Brian SUGAR DRIER.DIRECTOR CARDIOLOGY Work Phone: [facility] 06-28-2022 09:23-0500 Diastolic blood pressure 84 mm[Hg] Linda Brian SUGAR DRIER.DIRECTOR CARDIOLOGY Work Phone: [facility] 06-28-2022 09:23-0500 Heart rate 93 /min Linda Brian SUGAR DRIER.DIRECTOR CARDIOLOGY Work Phone: [facility] 06-28-2022 09:23-0500 Respiratory rate 14 /min Linda Brian SUGAR DRIER.DIRECTOR CARDIOLOGY Work Phone: [facility] 06-28-2022 09:23-0500 SaO2% (BldA) [Mass fraction] 99 % Linda Brian SUGAR DRIER.DIRECTOR CARDIOLOGY Work Phone: [facility] 06-28-2022 09:23-0500 Systolic blood pressure 120 mm[Hg] Linda Brian SUGAR DRIER.DIRECTOR CARDIOLOGY Work Phone: [facility] 08-08-2021 13:56-0500 Body temperature 97.5 [degF] Deo Mendez MD Work Phone: [facility] 08-08-2021 13:56-0500 Body weight 108.41 kg Deo Mendez MD Work Phone: [facility] 08-08-2021 13:56-0500 Diastolic blood pressure 78 mm[Hg] Deo Mendez MD Work Phone: [facility] 08-08-2021 13:56-0500 Heart rate 88 /min Deo Mendez MD Work Phone: [facility] 08-08-2021 13:56-0500 Respiratory rate 14 /min Deo Mendez MD Work Phone: [facility] 08-08-2021 13:56-0500 SaO2% (BldA) [Mass fraction] 97 % Deo Mendez MD Work Phone: [facility] 08-08-2021 13:56-0500 Systolic blood pressure 128 mm[Hg] Deo Mendez MD Work Phone: [facility] 12-06-2015 14:58-0400 BMI (Body Mass Index) 36.17 kg/m2 [facility] Work Phone: 12-06-2015 14:58-0400 Body Temperature 98.5 [degF] [facility] Work Phone: 12-06-2015 14:58-0400 BP Diastolic 80 mm[Hg] [facility] Work Phone: 12-06-2015 14:58-0400 BP Systolic 128 mm[Hg] [facility] Work Phone: 12-06-2015 14:58-0400 Pulse (Heart Rate) 67 /min [facility] Work Phone: 12-06-2015 14:58-0400 Respiratory Rate 29 /min [facility] Work Phone: 12-06-2015 14:58-0400 Weight 124.38 kg [facility] Work Phone: 09-04-2012 15:41-0500 BSA (Body Surface Area) 2.5 m2 [facility] Work Phone: 10-31-2011 10:57-0400 Height 185.42 cm [facility] Work Phone: Encounters Encounter Date Encounter Type Care Provider Facility Start: 10-30-2022 Telephone encounter Nicole Perera APRN.ARMOND Work Phone: [facility] Procedures Date Procedure Procedure Detail Performing Clinician Start: 08-09-2021 CMP EXTERNAL QAI Saleem Mendez MD Work Phone: Start: 08-09-2021 Hemoglobin A1c/Hemoglobin.total in Blood Deo Mendez MD Work Phone: Start: 08-09-2021 Lipid panel Deo Mendez MD Work Phone: Start: 09-23-2015 Colonoscopy Deo subramanian MD Work Phone: Start: 08-12-2015 End: 08-16-2015 Hepatitis C virus RNA [Presence] in Blood by ANDREW with probe detection Laura Rueda MD Start: 08-12-2015 End: 08-16-2015 HIV 1 RNA [#/volume] (viral load) in Serum or Plasma by ANDREW with probe detection Laura Rueda MD Start: 07-12-2015 End: 08-16-2015 *MISC - Miscellaneous Lab Test #1 Laura Rueda MD Start: 07-12-2015 End: 08-16-2015 Us abdominal real time w/image documentation Laura Rueda MD Start: 03-17-2015 End: 03-19-2015 *CBC with Differential Laura Rueda MD Start: 03-17-2015 End: 03-19-2015 *Hepatic Function Panel Laura Monique Start: 03-17-2015 End: 03-19-2015 *MISC - Miscellaneous Lab Test #1 Laura Rueda MD Start: 03-17-2015 End: 03-23-2015 Hepatitis C virus RNA [Presence] in Blood by ANDREW with probe detection Laura Rueda MD Start: 12-22-2014 End: 01-04-2015 *CBC with Differential Laura Rueda MD Start: 12-14-2014 End: 01-04-2015 *CBC with Differential Laura Rueda MD Start: 12-14-2014 End: 12-24-2014 *Hepatic Function Panel Laura Monique Start: 12-14-2014 End: 01-04-2015 Hepatitis C virus RNA [Presence] in Blood by ANDREW with probe detection Laura Rueda MD Start: 12-04-2014 End: 06-16-2015 *CBC with Differential Laura Rueda MD Start: 12-04-2014 End: 06-16-2015 *Hepatic Function Panel Laura Monique Start: 12-04-2014 End: 01-04-2015 Hepatitis C virus RNA [Presence] in Blood by ANDREW with probe detection Laura Rueda MD Start: 10-19-2014 End: 10-23-2014 Hepatitis C virus RNA [Presence] in Blood by ANDREW with probe detection Laura Rueda MD Start: 08-24-2014 End: 01-04-2015 *CMP Complete Metabolic Panel Laura reich MD Start: 08-24-2014 End: 01-04-2015 INR in Platelet poor plasma by Coagulation assay Laura Rueda MD Start: 06-01-2014 End: 06-15-2014 Hepatitis C virus RNA [Presence] in Blood by ANDREW with probe detection Laura Rueda MD Start: 05-18-2014 End: 06-21-2015 Hepatitis C virus RNA [Presence] in Blood by ANDREW with probe detection Laura Rueda MD Start: 04-30-2014 End: 05-11-2014 *Hepatic Function Panel Laura Monique Start: 04-30-2014 End: 05-11-2014 Hepatitis C virus RNA [Presence] in Blood by ANDREW with probe detection Laura Rueda MD Start: 02-25-2014 End: 05-11-2014 *CBC with Differential Laura J Signs Start: 02-25-2014 End: 01-04-2015 Hepatitis C virus RNA [Presence] in Blood by ANDREW with probe detection Laura J Signs Start: 01-19-2014 End: 01-21-2014 *CBC with Differential Laura J Signs Start: 01-19-2014 End: 01-21-2014 *Hepatic Function Panel Laura J Signs M D Start: 01-19-2014 End: 01-21-2014 Ammonia [Moles/volume] in Plasma Laura J Signs Start: 01-20-2013 End: 01-04-2015 *Creatinine, Serum Laura J Signs Start: 12-05-2012 End: 01-04-2015 *CBC with Differential Laura J Signs Start: 11-01-2012 End: 01-04-2015 *Creatinine, Serum Laura J Signs Start: 10-23-2012 End: 01-04-2015 Hepatitis C virus RNA [Presence] in Blood by ANDREW with probe detection Laura J Signs Start: 09-25-2012 End: 01-04-2015 Hepatitis C virus RNA [Presence] in Blood by ANDREW with probe detection Laura J Signs Start: 09-18-2012 End: 01-04-2015 *Hepatic Function Panel Laura J Signs M D Start: 09-18-2012 End: 01-04-2015 CBC W Auto Differential panel - Blood Laura J Signs Start: 09-18-2012 End: 01-04-2015 Hepatitis C virus RNA [Presence] in Blood by ANDREW with probe detection Laura J Signs Start: 09-05-2012 End: 01-04-2015 *CBC with Differential Laura J Signs Start: 09-03-2012 End: 01-04-2015 *CBC with Differential Laura Rueda MD Start: 09-03-2012 End: 01-04-2015 aPTT in Platelet poor plasma by Coagulation assay Laura Rueda MD Start: 09-03-2012 End: 01-04-2015 INR in Platelet poor plasma by Coagulation assay Laura Rueda MD Start: 09-03-2012 End: 01-04-2015 Platelets [#/volume] in Blood Laura reich MD Start: 08-19-2012 End: 01-04-2015 *CBC with Differential Laura Rueda MD Start: 08-19-2012 End: 01-04-2015 *CMP Complete Metabolic Panel Laura reich MD Start: 07-17-2012 End: 01-04-2015 *CMP Complete Metabolic Panel Laura reich MD Start: 07-17-2012 End: 01-04-2015 *HEPCGEN - Hepatitis C Virus Genotype Laura Rueda MD Start: 07-17-2012 End: 01-04-2015 *HIV antibody Laura Rueda MD Start: 07-17-2012 End: 01-04-2015 *MISC - Miscellaneous Lab Test #1 Laura Rueda MD Start: 07-17-2012 End: 01-04-2015 Alanine aminotransferase [Enzymatic activity/volume] in Serum or Plasma Laura Rueda MD Start: 07-17-2012 End: 01-04-2015 Hkmwl-3-vgechxgeeyk.tumor marker [Mass/volume] in Serum or Plasma Laura Rueda MD Start: 07-17-2012 End: 01-04-2015 aPTT in Platelet poor plasma by Coagulation assay Laura Rueda MD Start: 07-17-2012 End: 01-04-2015 Hepatitis C virus RNA [Presence] in Blood by ANDREW with probe detection Laura Rueda MD Start: 07-17-2012 End: 01-04-2015 INR in Platelet poor plasma by Coagulation assay Laura Rudea MD Start: 07-17-2012 End: 01-04-2015 Mycobacterium tuberculosis tuberculin stimulated gamma interferon [Presence] in Blood Laura Rueda MD Start: 11-15-2011 Rpr umbilical hrna 5 yrs/> reducible Aubree Menjivar Work Phone: Plan of Treatment Date Care Activity Detail Author Start: 08-09-2026 LIPID SCREEN LIPID SCREEN [facility] Start: 08-09-2024 DIABETES SCREEN DIABETES SCREEN [facility] Start: 06-28-2023 ANNUAL PCP TEAM NODULIZER JOSE RAMON DISEASE VISIT ANNUAL PCP TEAM CHRONIC DISEASE VISIT [facility] Start: 07-30-2022 ADVANCE DIRECTIVE DISCUSSION ADVANCE DIRECTIVE DISCUSSION [facility] Start: 06-28-2022 End: 08-28-2022 CBC W Auto Differential panel - Blood CBC + DIFF Lab Routine Screening for deficiency anemia Expected: 06/28/2022, Expires: 08/28/2022 [facility] Work Phone: Immunizations Immunization Date Immunization Notes Care Provider Tyler caballero 08-08-2021 Influenza, injectabl e, Madin Livier Canine Kidney, preservative free, quadrivalent Deo Mendez MD Work Phone: [facility] Payers Date Payer Category Payer Medicare [id number] 2015 Medicaid [id number] 2015 Medicare [employer] [id number] 2015-Present [phone] [address] [place] [address] Medicare [id number] 2015 Medicare [employer] [facility] MED[facility] [id number] 2015-Present [phone] [address] [place] [address] Medicare [id number] 2015 Medicare [id number] Social History Date Type Detail Facility Start: [facility] History of tobacco use Cigarette Smoker [facility] Start: 12-14-2021 Cigarettes smoked cu rrent (pack per day) - Reported 0.5 [facility] Start: 12-14-2021 Tobacco use and exposure Forme r smokeless tobacco user [facility] Start: 12-14-2021 End: 06-28-2022 Alcohol intake Current non-drinker of alcohol (finding) [facility] Start: 09-15-2015 History SDOH Alcohol Comment recovering alcoholic, sober 04/26/2000 [facility] Start: 12-16-2013 Tobacco Comment 5 to 6 cigs per day [facility] Start: 1955 Sex Assigned At Not on file [facility] Start: 01-27-2022 End: 06-28-2022 Exposure to SARS-CoV-2 (event) Not sure [facility] Note 10-30-2022 Telephone Encounter - Flaca Hernandez - 10/30/2022 10:24 AM EDTTelephone Encounter - Nicole ePrera APRN.CNP - 10/30/2022 7:29 AM EDT Note Date & Type Note Facility 10-30-2022 Miscellaneous Notes Formattin g of this note might be different from the original. Called patient to schedule no answer left vm Flaca Hernandez OK to schedule consult only LBP, no meds There was mention in his PCPs note he had been in pain management before. Please see if he has and obtain records Nicole Perera APRN.CNP documented in this encounter [facility] Note 08-23-2022 Telephone Encounter - Nohemi Gil LPN - 08/23/2022 4:38 PM EST Note Date & Type Note Facility 08-23-2022 Miscellaneous Notes Formattin g of this note is different from the original. [facility] message requesting the following refill. Requested Prescriptions Pending Prescriptions Disp Refills lisinopril (ZESTRIL, PRINIVIL) 20 mg tablet [Pharmacy Med Name: lisinopril 20 mg tablet] 30 tablet 11 Sig: TAKE 1 TABLET BY MOUTH EVERY DAY FEROSUL 325 mg (65 mg iron) tablet [Pharmacy Med Name: FeroSul 325 mg (65 mg iron) tablet] 30 tablet 11 Sig: TAKE 1 TABLET BY MOUTH EVERY DAY buPROPion XL (WELLBUTRIN XL) 300 mg 24 hr tablet [Pharmacy Med Name: bupropion HCl XL 300 mg 24 hr tablet, extended release] 30 tablet 11 Sig: TAKE 1 TABLET BY MOUTH EVERY DAY docusate sodium (COLACE) 100 mg capsule [Pharmacy Med Name: docusate sodium 100 mg capsule] 30 capsule 11 Sig: TAKE 1 CAPSULE BY MOUTH EVERY DAY amLODIPine (NORVASC) 5 mg tablet [Pharmacy Med Name: amlodipine 5 mg tablet] 30 tablet 11 Sig: TAKE 1 TABLET BY MOUTH EVERY DAY albuterol HFA (PROVENTIL HFA, VENTOLIN HFA) 90 mcg/actuation inhaler [Pharmacy Med Name: albuterol sulfate HFA 90 mcg/actuation aerosol inhaler] 1 Each 5 Sig: INHALE 1 TO 2 PUFFS BY MOUTH EVERY 6 HOURS NEEDED gabapentin (NEURONTIN) 600 mg tablet [Pharmacy Med Name: gabapentin 600 mg tablet] 90 tablet 2 Sig: TAKE 1 TABLET BY MOUTH THREE TIMES DAILY Patient last appointment: 06/28/2022 Patient Phone numbers: [phone] (home) [phone] (work) Request is for script(s) to be escript to [facility] pharmacy. Nohemi Gil LPN documented in this encounter [facility] Note 08-15-2022 Telephone Encounter - Rina Amaya LPN - 08/15/2022 3:15 PM EST Note Date & Type Note Facility 08-15-2022 Miscellaneous Notes Formattin g of this note might be different from the original. Patient notified to follow up with Dr. King Rina Amaya LPN August 15, 2022 3:15 PM documented in this encounter [facility] Progress note 06-28-2022 Note Date & Type Note Facility 06-28-2022 Note HNO ID: [id number] Author: Linda Brian APRN.DIRECTOR CARDIOLOGY Service: ? Author Type: Nurse Practitioner Type: Progress Notes Filed: 07/11/2022 11:10 AM Note Text: This note was created using [email or web address]. Subjective Alberto Schmitt is a 67 year old male. Patient presents to the office today for a hospital follow up visit after being admitted to [facility] on 06/11/2022-06/14/2022 due to TIA. Based on the reports I have available to me from this patient's admission to [facility] an acute stroke was ruled out however imaging did reveal a past lacunar infarct. Patient reports that he does have an appointment scheduled with neurology for further evaluation and treatment. Patient was discharged home on Plavix x 3 weeks and was instructed to begin taking aspirin 81mg daily which he is currently taking. 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 Patient reports that he still does not feel well. He reports that at times he feels dizzy 3-4 times a day. Patient is undergoing a 30 day event monitor study which was ordered by [facility] upon discharge from the hospital. I will attempt to get detailed discharge summary from [facility]. Review of Systems Constitutional: Negative. HENT: Negative. Eyes: Negative. Respiratory: Negative. Cardiovascular: Negative. Gastrointestinal: Negative. Endocrine: Negative. Genitourinary: Negative. Musculoskeletal: Negative. Skin: Negative. Allergic/Immunologic: Negative. Neurological: Positive for dizziness. Negative for tremors, seizures, syncope, facial asymmetry, speech difficulty, weakness, light-headedness, numbness and headaches. Hematological: Negative. Psychiatric/Behavioral: Negative. Objective BP 120/84 (BP Site: Left Arm, BP Position: Sitting) Pulse 93 Temp 36.6 ?C (97.8 ?F) (Temporal) Resp 14 Ht 182.9 cm (6') Wt 112.5 kg (248 lb) SpO2 99% BMI 33.63 kg/m? Physical Exam Constitutional: General: He is not in acute distress. Appearance: Normal appearance. He is obese. He is not ill-appearing, toxic-appearing or diaphoretic. HENT: Head: Normocephalic and atraumatic. Right Ear: Tympanic membrane, ear canal and external ear normal. Left Ear: Tympanic membrane, ear canal and external ear normal. Nose: Nose normal. Mouth/Throat: Mouth: Mucous membranes are moist. Pharynx: Oropharynx is clear. Eyes: Extraocular Movements: Extraocular movements intact. Conjunctiva/sclera: Conjunctivae normal. Pupils: Pupils are equal, round, and reactive to light. Neck: Vascular: No carotid bruit. Cardiovascular: Rate and Rhythm: Normal rate and regular rhythm. Pulses: Normal pulses. Heart sounds: Normal heart sounds. No murmur heard. Pulmonary: Effort: Pulmonary effort is normal. No respiratory distress. Breath sounds: Normal breath sounds. Abdominal: General: Bowel sounds are normal. Palpations: Abdomen is soft. Musculoskeletal: General: Normal range of motion. Cervical back: Normal range of motion and neck supple. No rigidity or tenderness. Lymphadenopathy: Cervical: No cervical adenopathy. Skin: General: Skin is warm and dry. Capillary Refill: Capillary refill takes less than 2 seconds. Neurological: General: No focal deficit present. Mental Status: He is alert and oriented to person, place, and time. Cranial Nerves: No cranial nerve deficit. Sensory: No sensory deficit. Motor: No weakness. Coordination: Coordination normal. Gait: Gait normal. Deep Tendon Reflexes: Reflexes normal. Comments: Positive greg-hallpike maneuver bilaterally Psychiatric: Mood and Affect: Mood normal. Behavior: Behavior normal. Thought Content: Thought content normal. Judgment: Judgment normal. Assessment and Plan ASSESSMENT/PLAN: 1. TIA (transient ischemic attack) - ICD9: 435.9, ICD10: G45.9 (primary diagnosis) Patient to follow up with neurology [facility]. Patient to continue current medications. Patient to go back to ER for any recurrent neuro symptoms. Will attempt to get recent discharge summary report. Patient to follow up in month for reevaluation. 2. History of cerebrovascular accident (CVA) greater than eight weeks in the past - ICD9: V12.54, ICD10: Z86.73 Patient instructed to follow up with neurology for this condition. 3. Vertigo - ICD9: 780.4, ICD10: R42 Patient referred to PT for vestibular therapy. Patient to notify office if he has any difficulty seeing PT. Follow up in 1 month. Patient instructed to follow up with neurology - CONSULT TO PHYSICAL THERAPY 4. Screening for deficiency anemia - ICD9: V78.1, ICD10: Z13.0 Obtain labs below - CBC + DIFF 5. Hyperlipidemia, mixed - ICD9: 272.2, ICD10: E78.2 - to be determined upon return of lab results - COMP METABOLIC PANEL - LIPID PANEL BASIC 6. Hyperthyroidism - ICD9: 242.90, ICD10: E05.90 Obtain labs below. Patient to follow up with endocrinology as he repo (more content not included)... [facility] Instructions 06-28-2022 Patient Instructions Note Date & Type Note Facility 06-28-2022 Instructions Linda Brian APRN.[facility] - 06/28/2022 9:57 AM EST - Follow up with neurology - Follow up with physical therapy for vertigo/dizziness - Continue current medications - Fast for 12 hrs and complete labs at earliest convenience - Follow up with endocrinology as they instruct - You are not to be driving until neurology clears you to drive. - Follow up in 1 month. documented in this encounter [facility] History of Present illness Narrative 06-28-2022 Linda Brian APRN.[facility] - 06/28/2022 9:43 AM EST Note Date & Type Note Facility 06-28-2022 History of Presen t illness Narrative This note was created using [employer]. Subjective Alberto Schmitt is a 67 year old male. Patient presents to the office today for a hospital follow up visit after being admitted to [facility] on 06/11/2022-06/14/2022 due to TIA. Based on the reports I have available to me from this patient's admission to [facility] an acute stroke was ruled out however imaging did reveal a past lacunar infarct. Patient reports that he does have an appointment scheduled with neurology for further evaluation and treatment. Patient was discharged home on Plavix x 3 weeks and was instructed to begin taking aspirin 81mg daily which he is currently taking. 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 Patient reports that he still does not feel well. He reports that at times he feels dizzy 3-4 times a day. Patient is undergoing a 30 day event monitor study which was ordered by [facility] upon discharge from the hospital. I will attempt to get detailed discharge summary from [facility]. Review of Systems Constitutional: Negative. HENT: Negative. Eyes: Negative. Respiratory: Negative. Cardiovascular: Negative. Gastrointestinal: Negative. Endocrine: Negative. Genitourinary: Negative. Musculoskeletal: Negative. Skin: Negative. Allergic/Immunologic: Negative. Neurological: Positive for dizziness. Negative for tremors, seizures, syncope, facial asymmetry, speech difficulty, weakness, light-headedness, numbness and headaches. Hematological: Negative. Psychiatric/Behavioral: Negative. Objective BP 120/84 (BP Site: Left Arm, BP Position: Sitting) Pulse 93 Temp 36.6 C (97.8 F) (Temporal) Resp 14 Ht 182.9 cm (6') Wt 112.5 kg (248 lb) SpO2 99% BMI 33.63 kg/m Physical Exam Constitutional: General: He is not in acute distress. Appearance: Normal appearance. He is obese. He is not ill-appearing, toxic-appearing or diaphoretic. HENT: Head: Normocephalic and atraumatic. Right Ear: Tympanic membrane, ear canal and external ear normal. Left Ear: Tympanic membrane, ear canal and external ear normal. Nose: Nose normal. Mouth/Throat: Mouth: Mucous membranes are moist. Pharynx: Oropharynx is clear. Eyes: Extraocular Movements: Extraocular movements intact. Conjunctiva/sclera: Conjunctivae normal. Pupils: Pupils are equal, round, and reactive to light. Neck: Vascular: No carotid bruit. Cardiovascular: Rate and Rhythm: Normal rate and regular rhythm. Pulses: Normal pulses. Heart sounds: Normal heart sounds. No murmur heard. Pulmonary: Effort: Pulmonary effort is normal. No respiratory distress. Breath sounds: Normal breath sounds. Abdominal: General: Bowel sounds are normal. Palpations: Abdomen is soft. Musculoskeletal: General: Normal range of motion. Cervical back: Normal range of motion and neck supple. No rigidity or tenderness. Lymphadenopathy: Cervical: No cervical adenopathy. Skin: General: Skin is warm and dry. Capillary Refill: Capillary refill takes less than 2 seconds. Neurological: General: No focal deficit present. Mental Status: He is alert and oriented to person, place, and time. Cranial Nerves: No cranial nerve deficit. Sensory: No sensory deficit. Motor: No weakness. Coordination: Coordination normal. Gait: Gait normal. Deep Tendon Reflexes: Reflexes normal. Comments: Positive greg-hallpike maneuver bilaterally Psychiatric: Mood and Affect: Mood normal. Behavior: Behavior normal. Thought Content: Thought content normal. Judgment: Judgment normal. Assessment and Plan ASSESSMENT/PLAN: 1. TIA (transient ischemic attack) - ICD9: 435.9, ICD10: G45.9 (primary diagnosis) Patient to follow up with neurology [facility]. Patient to continue current medications. Patient to go back to ER for any recurrent neuro symptoms. Will attempt to get recent discharge summary report. Patient to follow up in month for reevaluation. 2. History of cerebrovascular accident (CVA) greater than eight weeks in the past - ICD9: V12.54, ICD10: Z86.73 Patient instructed to follow up with neurology for this condition. 3. Vertigo - ICD9: 780.4, ICD10: R42 Patient referred to PT for vestibular therapy. Patient to notify office if he has any difficulty seeing PT. Follow up in 1 month. Patient instructed to follow up with neurology - CONSULT TO PHYSICAL THERAPY 4. Screening for deficiency anemia - ICD9: V78.1, ICD10: Z13.0 Obtain labs below - CBC + DIFF 5. Hyperlipidemia, mixed - ICD9: 272.2, ICD10: E78.2 - to be determined upon return of lab results - COMP METABOLIC PANEL - LIPID PANEL BASIC 6. Hyperthyroidism - ICD9: 242.90, ICD10: E05.90 Obtain labs below. Patient to follow up with endocrinology as he reports he does follow with endocrinology on a regular basis . - TSH BLD - T4 FREE/FREE THYROX Linda Brian APRN.DIRECTOR CARDIOLOGY documented in this encounter [facility] Note 06-05-2022 Telephone Encounter - Kathy Connell LPN - 06/05/2022 11:23 AM EST Note Date & Type Note Facility 06-05-2022 Miscellaneous Notes Formattin g of this note is different from the original. Patient called requesting the following refill. Requested Prescriptions Pending Prescriptions Disp Refills pantoprazole DR (PROTONIX) 40 mg tablet 90 tablet 0 Sig: Take 1 tablet by mouth once daily. Patient last appointment: 12/14/21 Patient Phone numbers: [phone] (home) [phone] (work) Request is for script(s) to be escript to pharmacy. 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 Advance Directive(s) 12/13/2015 7:35 AM Advance Directive(s) 12/01/2015 1:24 PM Advance Directive(s) 11/08/2015 8:32 AM Advance Directive(s) 11/08/2015 10:17 AM Reason for Referral Specialty Diagnoses / Procedures Referred By Skinny beatty Referred To Contact [facility] Diagnoses Vertigo Procedures CONSULT TO PHYSICAL THERAPY PHYSICAL THERAPY EVALUATION HIGH COMPLEX 45 MINS Linda Brian, SUGAR DRIER.DIRECTOR CARDIOLOGY [address] [place] [address] [facility] [address] [address] Referral ID Status Reason Start Date Expiration Date Visits Requested Visits Authorized [id number] Pending Review Auto-Generat ed Referral 2 06/28/2023 1 1 Additional Source Comments (unrecognized sect ion and content) No Status Records FoundNo Status Records FoundNo Status Records Found INFORMATION SOURCE (unrecogn ized section and content) DATE CREATED AUTHOR AUTHOR'S ORGANIZ ATION 08/16/2022 [facility] DATE CREATED AUTHOR AUTHOR'S ORGANIZ ATION 11/24/2022 [facility] Source Comments (unrecognize d section and content) In the event this informatio n is protected by the Federal Confidentiality of Alcohol and Drug Abuse Patient Records regulations: The Federal rules restrict any use of the information to criminally investigate or prosecute any alcohol or drug abuse patient.[facility] event this information is protected by the Federal Confidentiality of Alcohol and Drug Abuse Patient Records regulations: The Federal rules restrict any use of the information to criminally investigate or prosecute any alcohol or drug abuse patient.[facility] the event this information is protected by the Federal Confidentiality of Alcohol and Drug Abuse Patient Records regulations: The Federal rules restrict any use of the information to criminally investigate or prosecute any alcohol or drug abuse patient.[facility] the event this information is protected by the Federal Confidentiality of Alcohol and Drug Abuse Patient Records regulations: The Federal rules restrict any use of the information to criminally investigate or prosecute any alcohol or drug abuse patient.[facility] the event this information is protected by the Federal Confidentiality of Alcohol and Drug Abuse Patient Records regulations: The Federal rules restrict any use of the information to criminally investigate or prosecute any alcohol or drug abuse patient.[facility] the event this information is protected by the Federal Confidentiality of Alcohol and Drug Abuse Patient Records regulations: The Federal rules restrict any use of the information to criminally investigate or prosecute any alcohol or drug abuse patient.[facility] the event this information is protected by the Federal Confidentiality of Alcohol and Drug Abuse Patient Records regulations: The Federal rules restrict any use of the information to criminally investigate or prosecute any alcohol or drug abuse patient.[facility] the event this information is protected by the Federal Confidentiality of Alcohol and Drug Abuse Patient Records regulations: The Federal rules restrict any use of the information to criminally investigate or prosecute any alcohol or drug abuse patient.[facility] Care Teams (unrecognized sec tion and content) Financial Advisor Trainee Relationship Specialty Start Date End Date Deo Mendez MD PCP - General Family Practice 12/01/15 Financial Advisor Trainee Relationship Specialty Start Date End Date Deo Mendez MD PCP - General Family Medicine 12/01/15 Financial Advisor Trainee Relationship Specialty Start Date End Date Deo Mendez MD PCP - General Family Medicine 12/01/15 Financial Advisor Trainee Relationship Specialty Start Date End Date Deo Mendez MD PCP - General Family Medicine 12/01/15 Financial Advisor Trainee Relationship Specialty Start Date End Date Deo Mendez MD PCP - General Family Medicine 12/01/15 Financial Advisor Trainee Relationship Specialty Start Date End Date Deo Mendez MD PCP - General Family Medicine 12/01/15 Reason for Visit (unrecogniz ed section and content) Reason Comments Transition Of Care Hospital f/u---TIA Reason Comments Patient Update Reason Comments Refill Request Reason Comments New Patient FOR RECORDS PERTAINING TO PATIENTS WHO ARE OR HAVE BEEN ENROLLED IN A CHEMICAL DEPENDENCY/SUBSTANCEABUSE PROGRAM, SOME INFORMATION MAY BE OMITTED. This clinical summary was aggregated from multiple sources. Caution should be exercised in using it in the provision of clinical care. This summary normalizes information from multiple sources, and as a consequence, information in this document may materially change the coding, format and clinical context of patient data. In addition, data may be omitted in some cases. CLINICAL DECISIONS SHOULD BE BASED ON THE PRIMARY CLINICAL RECORDS. [facility] [employer] [facility]. provides no warranty or guarantee of the accuracy or completeness of information in this document.
--- NOTE | 2023-09-11 07:33 | MRI_ITS ---
STUDY: MRI BRAIN WITH AND WITHOUT CONTRAST (ATTENTION PITUITARY GLAND) REASON FOR EXAM: Male, 68 years old. Follow-up pituitary macroadenoma, COMPARE TO PREVIOUS MRI TECHNIQUE: Standardized multiplanar fat and water weighted pulse sequences were obtained. IV 22ML CLARISCAN was administered for the contrast portion of the examination. COMPARISON: MRI of the brain dated December 05, 2022 FINDINGS: Redemonstration of a nonenhancing hypointense lobular nodule in the posterior aspect of the anterior hypopharynx is with slight extension into the base of the pituitary stalk, measuring 0.84 x 1.21 cm compared to the prior measurement of 0.80 x 1.2 cm, indicating no significant interval change accounting for slight differences in measuring position. No new abnormalities are present pituitary gland or stalk or hypothalamus. The remaining pituitary parenchyma is stable and unremarkable. Normal enhancement of the pituitary gland, without a demonstrated intrapituitary lesion. Normal infundibular stalk and suprasellar cistern. Normal optic chiasm and hypothalamus. There is mild cerebral atrophy with widening of the extra-axial spaces and ventricular dilatation. There are a limited number of small white matter hyperintensities, distributed throughout the deep white matter tracts of the cerebral hemispheres, consistent with mild chronic white matter ischemic changes. There are no ring-enhancing lesions of the brain parenchyma or abnormal thickening or enhancement of the meninges or dura. Normal bilateral basal ganglia. Normal thalami. Normal flow voids within the major intracranial circulation suggesting patency by spin echo criteria. Normal venous enhancement. There is no enhancing intra-axial or extra-axial abnormality. There is no extra-axial fluid accumulation. Normal tectal plate and pineal gland. Redemonstration of an old lacunar infarct with cystic volume loss in the left posterior aspect of the zeeshan. Normal cerebellum. Normal basal cisterns. Normal bilateral temporal bones. Normal bilateral internal auditory canals. No demonstrated orbital abnormality, within the constraints of a routine brain study. Normal visualized paranasal sinuses. Normal calvarium and skull base. Normal visualized upper cervical spine. Normal visualized soft tissue structures. MRI/Brain W/WO Contrast IMPRESSION: Benign pituitary macroadenoma 1. Redemonstration of a nonenhancing hypointense lobular nodule in the posterior aspect of the anterior hypopharynx is with slight extension into the base of the pituitary stalk, measuring 0.84 x 1.21 cm compared to the prior measurement of 0.80 x 1.2 cm, indicating no significant interval change accounting for slight differences in measuring position. No new abnormalities are present pituitary gland or stalk or hypothalamus. The remaining pituitary parenchyma is stable and unremarkable. Electronically Signed: Aris Bassett MD at 10:44 EST ,
[2023-09-11 08:08] LABS: CREATININE FINGERSTICK 1.4 mg/dL (0.70-1.30); EGFR FINGERSTICK > 60.0000 mL/min (>60)
== END | disposition home or self-care (01) ==
LOC: MRI 07:26
PROVIDERS: PCP Internal Medicine; Referring Provider Psychiatry & Neurology Neurology; Visit Provider Psychiatry & Neurology Neurology
DX: D35.2 Benign neoplasm of pituitary gland (principal)
CPT/HCPCS: 70553; A9575

== ENCOUNTER → 2023-10-25 | Outpatient (CLI) | payer MEDICARE, MEDICAID, SELFPAY ==
[2023-10-25 16:42] LABS: Absolute Lymphocyte Count 1.34 X10^3/uL (0.83-4.51); Absolute Neutrophil Count 2.3 X10^3/uL (2.0-7.7); Basophil# 0.07 X10^3/uL; Basophil% 1.6 % (0-1); Eosinophil# 0.19 X10^3/uL; Eosinophils% 4.4 % (0-5); Hematocrit 45.9 % (40-54); Hemoglobin 14.5 g/dL (13.0-16.5); Lymphocyte # 1.34 X10^3/ul (0.83-4.51); Lymphocyte % 31.1 % (19-41); Mean Corp Hgb Conc 31.6 g/dL (32-36); Mean Corpuscular Hgb 29.5 pg (27.0-32.0); Mean Corpuscular Volume 93.3 fL (80-94); Mean Platelet Vol. 12.8 fl (6.2-12.0); Monocyte# 0.36 X10^3/uL; Monocyte% 8.4 % (0-10); NRBC Flagged by Analyzer 0 % (0-5); Neutrophil # 2.34 X10^3/uL (2.7-7.7); Neutrophil % 54.3 % (47-70); Platelet Count 126 K/mm3 (150-450); RBC Distribution Width CV 13.1 % (11.6-14.6); RBC Distribution Width SD 44.9 fl (35.1-43.9); Red Blood Count 4.92 M/mm3 (4.6-6.2); White Blood Count 4.3 K/mm3 (4.4-11.0)
[2023-10-25 17:09] LABS: ALB/GLOB Ratio 0.9 RATIO (0.9-2.4); AST(SGOT) 28 U/L (15-37); Alanine Aminotransfer ALT/SGPT 33 U/L (16-61); Albumin, Serum 3.5 g/dL (3.2-5.0); Alkaline Phosphatase 118 U/L (45-117); Anion Gap 4 (5-15); BUN 11 mg/dL (7-18); BUN/Creat Ratio 8.7 RATIO (10-20); Chloride 113 mmol/L (98-107); Creatinine, Serum 1.27 mg/dL (0.70-1.30); EST Glomerular Filtration Rate 60 mL/min (>60); Est Glom Filt Rate - Afr Amer 73 mL/min (>60); Glucose 103 mg/dL (74-106); Potassium 4.1 mmol/L (3.5-5.1); Protein, Total 7.5 g/dL (6.4-8.2); Sodium Level 142 mmol/L (136-145); T4 Free Direct 1.13 ng/dL (0.76-1.46); Thyroid Stim Hormone (TSH) 0.58 uIU/mL (0.358-3.74)
[2023-11-02 11:08] LABS: Testosterone, Free 6.79 ng/dL (5.00-21.00); Testosterone, Total 377 ng/dL (264-916)
== END | disposition home or self-care (01) ==
LOC: BIMLAB 14:40
PROVIDERS: PCP Internal Medicine; Visit Provider Internal Medicine Endocrinology, Diabetes & Metabolism
DX: R07.9 Chest pain, unspecified (principal); D35.2 Benign neoplasm of pituitary gland; R79.89 Other specified abnormal findings of blood chemistry; E03.9 Hypothyroidism, unspecified
CPT/HCPCS: 36415; 80053; 84402; 84403; 84439; 84443; 85025

== ENCOUNTER → 2024-01-30 | Outpatient (CLI) | payer MEDICARE, MEDICAID, SELFPAY ==
--- NOTE | 2024-01-30 12:28 | STRESSREP ---
Stress Test Report Pharmacologic myocardial perfusion stress test. 68-year-old man with a history of abnormal EKG Resting EKG demonstrates sinus rhythm with a rate of 71 bpm. Resting blood pressure is 142/94 mmHg. 0.4 mg of regadenoson was infused per usual protocol followed by rapid intravenous saline flush injection. Continuous EKG monitoring was performed. The maximum heart rate was 103 bpm which was 66% of max impacted heart rate the maximum workload was 1 metabolic equivalent. At rest there were no ST or T wave changes noted to suggest ischemia and at peak infusion nonspecific ST changes were noted which did not meet the criteria for ischemia. No clinical angina is noted. The final blood pressure was 138/88 mmHg. Myocardial perfusion protocol. 14.8 mCi of technetium 99m sestamibi was injected at rest. 0.4 mg of regadenoson was infused per usual protocol. At peak infusion 44 point mCi of technetium 99m sestamibi was injected stress images were obtained stress and rest images were reconstructed and compared in the short axis vertical long and horizontal long axis. Gated images were also obtained. Perfusion SPECT analysis: Review of the stress images demonstrate normal uptake of tracer noted in all areas of the myocardium. The resting images similar demonstrated normal uptake of tracer noted in all areas of the myocardium. No areas of reversibility are noted to suggest ischemia and no previous infarct is noted. Gated SPECT analysis: The gated ejection fraction is 62%. Conclusion: Normal pharmacologic myocardial perfusion stress test. Preserved ejection fraction.
== END | disposition home or self-care (01) ==
PROVIDERS: PCP Internal Medicine; Referring Provider Internal Medicine Cardiovascular Disease; Visit Provider Internal Medicine Cardiovascular Disease
DX: R94.31 Abnormal electrocardiogram [ECG] [EKG] (principal); I47.20 Ventricular tachycardia, unspecified; R07.9 Chest pain, unspecified
CPT/HCPCS: 78452; 93017; A9500; A4216; J2785

== ENCOUNTER → 2024-09-22 | Outpatient (CLI) | payer MEDICARE, MEDICAID, SELFPAY ==
--- NOTE | 2024-09-22 16:39 | MRI_ITS ---
PROCEDURE: MRI of the brain and pituitary gland without and with intravenous contrast. REASON FOR EXAM: Follow-up pituitary macro adenoma TECHNIQUE: Multiplanar, multisequence MRI images of the brain and pituitary gland were obtained without and with intravenous contrast. COMPARISON: 09/11/2023 FINDINGS: Bones of the calvarium appear intact. Included upper cervical spinal cord shows no specific abnormality. The orbits and parasellar structures are grossly unremarkable. Extracranial soft tissues show no specific abnormality. Paranasal sinuses and mastoid air cells are clear. Major basilar intracranial flow voids are present. No areas of restricted diffusion. And Similar prominence of the cortical sulci and ventricular system, compatible with moderate brain parenchymal atrophy. No extra-axial fluid collection or midline shift. The jamison-white matter differentiation is maintained. The ventricles are stable in caliber and configuration. Basilar cisterns are clear. On whole brain postcontrast images, no areas of abnormal brain parenchymal enhancement. 7 mm remote lacunar infarct involving the left side of the zeeshan is unchanged. Some minimal patchy areas of increased T2/FLAIR signal in the deep and periventricular white matter structures of the cerebral hemispheres are relatively unchanged. On dedicated images through the sella turcica, similar 11 mm maximum craniocaudad dimension hypoenhancing lesion involving the superior central pituitary gland, causing thickening of the inferior aspect of the pituitary infundibulum, not significantly changed. This demonstrates some relative hypoenhancement compared to the remainder of the pituitary gland. No contact of the cavernous portions of the internal carotid arteries. There is no gross enlargement of the pituitary gland. MRI/Brain W/WO Contrast IMPRESSION: Similar moderate brain parenchymal atrophy. No acute intracranial abnormality or abnormal brain parenchymal enhancement. Mild scattered white matter hyperintensities in the cerebral hemispheres are un changed, and may be on the basis of chronic small-vessel ischemic disease or prior trauma. Similar 7 mm remote lacunar inf arct involving the left side of the zeeshan. 11 mm hypoenhancing lesion involving the superior central pituitary gland, caus ing similar degree of thickening of the inferior pituitary infundibulum, grossly unchanged compared to the prior study of 2023. This may represent a pituitary macroadenoma. [facility]
== END | disposition home or self-care (01) ==
LOC: MRI 16:36
PROVIDERS: PCP Internal Medicine; Referring Provider Psychiatry & Neurology Neurology; Visit Provider Psychiatry & Neurology Neurology
DX: D35.2 Benign neoplasm of pituitary gland (principal)
CPT/HCPCS: 70553; A9575

== ENCOUNTER → 2024-10-22 | Outpatient (CLI) | payer MEDICARE, MEDICAID, SELFPAY ==
[2024-10-22 15:52] LABS: Absolute Lymphocyte Count 1.38 X10^3/uL (0.83-4.51); Absolute Neutrophil Count 2.6 X10^3/uL (2.0-7.7); Basophil# 0.06 X10^3/uL; Basophil% 1.3 % (0-1); Eosinophil# 0.24 X10^3/uL; Eosinophils% 5.1 % (0-5); Hematocrit 41.6 % (40-54); Hemoglobin 13.4 g/dL (13.0-16.5); Lymphocyte # 1.38 X10^3/ul (0.83-4.51); Lymphocyte % 29.5 % (19-41); Mean Corp Hgb Conc 32.2 g/dL (32-36); Mean Corpuscular Hgb 29.6 pg (27.0-32.0); Mean Corpuscular Volume 91.8 fL (80-94); Mean Platelet Vol. 11.1 fl (6.2-12.0); Monocyte# 0.42 X10^3/uL; NRBC Flagged by Analyzer 0 % (0-5); Neutrophil # 2.56 X10^3/uL (2.7-7.7); Neutrophil % 54.7 % (47-70); Platelet Count 219 K/mm3 (150-450); RBC Distribution Width CV 13.4 % (11.6-14.6); RBC Distribution Width SD 45.4 fl (35.1-43.9); Red Blood Count 4.53 M/mm3 (4.6-6.2); White Blood Count 4.7 K/mm3 (4.4-11.0)
[2024-10-22 20:25] LABS: ALB/GLOB Ratio 1.2 RATIO (0.9-2.4); AST(SGOT) 22 U/L (<=37); Alanine Aminotransfer ALT/SGPT 20 U/L (<=46); Albumin, Serum 3.9 g/dL (3.4-4.8); Alkaline Phosphatase 107 U/L (40-129); Anion Gap 12 (5-15); BUN 25 mg/dL (4-19); BUN/Creat Ratio 18.1 RATIO (10-20); Carbon Dioxide 23.2 mmol/L (21.0-32.0); Chloride 107 mmol/L (98-108); Creatinine, Serum 1.37 mg/dL (0.70-1.20); EST Glomerular Filtration Rate 57 (>60); Globulin 3.2 g/dL (2.2-4.2); Glucose 96 mg/dL (70-99); Protein, Total 7.1 g/dL (5.9-8.4); Sodium Level 142 mmol/L (133-145)
[2024-10-22 20:36] LABS: Cholesterol 185 mg/dL (<=200); High Density Lipoprotein 63 mg/dL; Low Density Lipoprotein Calc. 104 mg/dL; Triglycerides 89 mg/dL; Very Low Density Lipoprotein 18 mg/dL (5-40); cholesterol:hdl ratio screen 2.95
== END | disposition home or self-care (01) ==
LOC: BIMLAB 14:02
PROVIDERS: PCP Internal Medicine; Referring Provider Internal Medicine Endocrinology, Diabetes & Metabolism; Visit Provider Internal Medicine Endocrinology, Diabetes & Metabolism
DX: E03.9 Hypothyroidism, unspecified (principal); D35.2 Benign neoplasm of pituitary gland; R86.1 Abnormal level of hormones in specimens from male genital organs
CPT/HCPCS: 36415; 80053; 80061; 84402; 84403; 84439; 84443; 85025

== ENCOUNTER → 2025-01-21 | Outpatient (CLI) | payer MEDICARE, MEDICAID, SELFPAY ==
[2025-01-21 13:47] LABS: Bacteria 0 SEEN /hpf (None Seen); Mucous, Urine 0 SEEN /hpf (<or=2+); Red Blood Cells-Urine 0 SEEN /hpf (0-5)
[2025-01-21 15:27] LABS: Absolute Lymphocyte Count 1.68 X10^3/uL (0.83-4.51); Absolute Neutrophil Count 3.3 X10^3/uL (2.0-7.7); Basophil# 0.06 X10^3/uL; Color, Urine Yellow (Yellow); Eosinophil# 0.25 X10^3/uL; Eosinophils% 4.3 % (0-5); Glucose, Dipstick Normal (Normal); Hematocrit 40.6 % (40-54); Hemoglobin 13.5 g/dL (13.0-16.5); Ketone-Dipstick Negative (Negative); Leukocyte Esterase-Dipstick Negative /ul (Negative); Lymphocyte # 1.68 X10^3/ul (0.83-4.51); Lymphocyte % 28.8 % (19-41); Mean Corp Hgb Conc 33.3 g/dL (32-36); Mean Corpuscular Hgb 30.3 pg (27.0-32.0); Mean Corpuscular Volume 91.2 fL (80-94); Mean Platelet Vol. 10.8 fl (6.2-12.0); Monocyte# 0.55 X10^3/uL; Monocyte% 9.4 % (0-10); NRBC Flagged by Analyzer 0 % (0-5); Neutrophil # 3.26 X10^3/uL (2.7-7.7); Neutrophil % 55.8 % (47-70); Nitrite-Dipstick Negative (Negative); Occult Blood-Urine Negative /ul (Negative); Platelet Count 221 K/mm3 (150-450); Protein-Dipstick 30 mg/dl (Negative); RBC Distribution Width CV 13.8 % (11.6-14.6); RBC Distribution Width SD 46.1 fl (35.1-43.9); Red Blood Count 4.45 M/mm3 (4.6-6.2); Urine Bilirubin Dipstick Negative (Negative); Urine Clarity Clear (Clear); Urine Urobilinogen Normal (Normal); White Blood Count 5.8 K/mm3 (4.4-11.0)
[2025-01-21 15:50] LABS: White Blood Cells 0-5 SEEN /hpf (0-5)
[2025-01-21 15:51] LABS: Hyaline Cast 0-5 SEEN /lpf (0-5); Squamous Epithelial Cells - UA 0-5 SEEN /hpf (0-5)
[2025-01-21 17:51] LABS: ALB/GLOB Ratio 1.4 RATIO (0.9-2.4); AST(SGOT) 27 U/L (<=37); Alanine Aminotransfer ALT/SGPT 21 U/L (<=46); Albumin, Serum 4.1 g/dL (3.4-4.8); Alkaline Phosphatase 124 U/L (40-129); Anion Gap 12 (5-15); BUN 18 mg/dL (4-19); BUN/Creat Ratio 12.9 RATIO (10-20); Calcium,Total 9.1 mg/dL (7.6-11.0); Chloride 107 mmol/L (98-108); Creatinine, Serum 1.37 mg/dL (0.70-1.20); EST Glomerular Filtration Rate 57 (>60); Globulin 2.9 g/dL (2.2-4.2); Glucose 86 mg/dL (70-99); PSA,Total- Diagnostic 1.32 ng/mL (0.00-4.00); Potassium 4.1 mmol/L (3.3-5.1); Sodium Level 144 mmol/L (133-145); Total Bilirubin < 0.15 mg/dL (0.00-1.30)
== END | disposition home or self-care (01) ==
LOC: BIMLAB 13:46
PROVIDERS: PCP Internal Medicine; Referring Provider Internal Medicine; Visit Provider Internal Medicine
DX: R10.9 Unspecified abdominal pain (principal); R39.12 Poor urinary stream
CPT/HCPCS: 36415; 80053; 81001; 84153; 85025; 87086; 87088

== ENCOUNTER → 2025-02-27 | Outpatient (CLI) | payer MEDICARE, MEDICAID, SELFPAY ==
--- NOTE | 2025-02-27 14:48 | ECHOD_ITS ---
Reason For Study Reason For Study: ABN EKG Procedure This was a 2D Doppler, Color Flow transthoracic echocardiogram. The study was technically difficult. Exam performed in department. Left Ventricle Normal LV size. The left ventricular ejection fraction is 70 %. No regional wall motion abnormalities noted. Right Ventricle Normal RV size. Normal systolic function. Atria Normal left atrium. Normal right atrium. Mitral Valve Normal mitral valve. Tricuspid Valve Normal tricuspid valve. Aortic Valve Trisinus/trileaflet aortic valve. Great Vessels Normal aortic root. The pulmonary artery is normal size. Inferior vena cava collapse with respiration. Pericardium/Pleural No pericardial effusion. MMode/2D Measurements & Calculations LAV(MOD-sp4): 40.0 ml LVAd ap4: 27.5 cm2 SV(MOD-sp4): 50.0 ml LVLd ap4: 8.5 cm SI(MOD-sp4): 21.3 ml/m2 EDV(MOD-sp4): 74.0 ml EDV(sp4-el): 75.2 ml LVAs ap4: 13.8 cm2 LVLs ap4: 7.2 cm ESV(MOD-sp4): 24.0 ml ESV(sp4-el): 22.7 ml EF(MOD-sp4): 67.6 % EF(sp4-el): 69.9 % SV(sp4-el): 52.5 ml LA A4 area: 15.6 cm2 RA A4 area: 9.1 cm2 Time Measurements MV dec time: 0.22 sec Doppler Measurements & Calculations MV E max conor: 64.1 cm/sec Lat Peak E' Conor: 11.6 cm/sec Med Peak E' Ocnor: 8.9 cm/sec MV A max conor: 64.1 cm/sec E/E' lat: 5.5 E/E' med: 7.2 MV E/A: 1.0 MV V2 max: 74.0 cm/sec Ao V2 max: 127.5 cm/sec MV max P.2 mmHg MV dec slope: 287.6 cm/sec2 Ao max P.5 mmHg MV V2 mean: 56.1 cm/sec Ao V2 mean: 88.9 cm/sec MV mean P.4 mmHg Ao mean P.6 mmHg MV V2 VTI: 18.9 cm Ao V2 VTI: 23.5 cm AV (velocity ratio): 0.88 LV V1 max: 114.0 cm/sec LV V1 max P.2 mmHg LV V1 mean P.6 mmHg LV V1 mean: 74.1 cm/sec LV V1 VTI: 20.7 cm ECHO/Echo Complete Interpretation Summary Normal LV size. The left ventricular ejection fraction is 70 %. Structurally normal valves. Ordering Physician: Sharon Velázquez Referring Physician: Sharon Velázquez Performed By: Pushpa Bailey RCS
--- NOTE | 2025-02-27 15:20 | CT_ITS ---
PROCEDURE: ABDOMEN/PELVIS WITHOUT CONT 02/27/2025 REASON FOR EXAM: LOW BACK PAIN TECHNIQUE: ABDOMEN/PELVIS WITHOUT CONT Noncontrast technique limits evaluation of the abdominal and pelvic viscera. Coronal and Sagittal reconstruction series were provided. One or more dose reduction techniques were used (e.g., Automated exposure control, adjustment of the mA and/or kV according to patient size, use of iterative reconstruction technique). RADIATION DOSE SUMMARY: CTDlvol: 18 mGy DLP: 1052 mGycm COMPARISON: 05/13/2023 FINDINGS: Bibasilar scar/atelectasis. Numerous noncalcified lung nodules measuring under 4 mm, stable, favoring benign etiology. Normal heart size. Cirrhosis. Normal gallbladder, pancreas, adrenal glands, right kidney. 5 mm hyperdense left renal cyst. Normal spleen. No hydronephrosis. Normal bladder. Normal prostate. Stable borderline retroperitoneal adenopathy favoring benign etiology. No free air. Nondistended bowel. Normal appendix. Diverticulosis. Lumbar spine degeneration. No acute abdominal wall findings. CT/Abdomen/Pelvis without Cont IMPRESSION: No acute findings Reading Location: [place] [id number]
== END | disposition home or self-care (01) ==
PROVIDERS: PCP Internal Medicine; Referring Provider Internal Medicine; Visit Provider Internal Medicine
DX: I47.29 Other ventricular tachycardia (principal)
CPT/HCPCS: 74176; 93306

== ENCOUNTER → 2025-07-16 | Outpatient (CLI) | payer MEDICARE, MEDICAID, SELFPAY ==
[2025-07-16 10:51] LABS: Hematocrit 40.0 % (40-54); Hemoglobin 13.2 g/dL (13.0-16.5); Immature Granulocytes Count 0.010 X10^3/uL (0.0-0.0); Mean Corp Hgb Conc 33.0 g/dL (32-36); Mean Corpuscular Volume 88.9 fL (80-94); Mean Platelet Vol. 10.9 fl (6.2-12.0); NRBC Flagged by Analyzer 0 % (0-5); Platelet Count 170 K/mm3 (150-450); RBC Distribution Width CV 13.3 % (11.6-14.6); RBC Distribution Width SD 43.6 fl (35.1-43.9); Red Blood Count 4.50 M/mm3 (4.6-6.2); White Blood Count 3.4 K/mm3 (4.4-11.0)
[2025-07-16 11:31] LABS: PSA,Total - Annual Screen 1.41 ng/mL (0.02-4.00)
[2025-07-22 11:08] LABS: Testosterone, % Free 1.60 % (1.50-4.20); Testosterone, Free 5.58 ng/dL (5.00-21.00)
== END | disposition home or self-care (01) ==
PROVIDERS: PCP Internal Medicine; Referring Provider Nurse Practitioner Family; Visit Provider Nurse Practitioner Family
DX: E03.9 Hypothyroidism, unspecified (principal); D35.2 Benign neoplasm of pituitary gland; Z12.5 Encounter for screening for malignant neoplasm of prostate
CPT/HCPCS: 36415; 84153; 84402; 84403; 84439; 84443; 85025; G0103